=== PATIENT | male | born 1955 | race Caucasian/White ===

== ENCOUNTER 2022-01-23 05:15 | Observation (INO) ==
--- NOTE | 2021-12-27 14:40 | PAT Medication Instructions ---
Medication Instructions Date of Service December 27, 2021 Home Medications acetaminophen 650 mg tablet 1,300 mg PO Q4H PRN atorvastatin 20 mg tablet 20 mg PO HS famotidine 20 mg tablet (Pepcid) 20 mg PO QAM multivitamin 2 tab PO QAM DO NOT take the morning of surgery multivitamin 2 tab PO QAM Take morning of surgery With a small sip of water, OTHERWISE NOTHING TO EAT OR DRINK AFTER MIDNIGHT: acetaminophen 650 mg tablet 1,300 mg PO Q4H PRN(if needed) famotidine 20 mg tablet (Pepcid) 20 mg PO QAM Take evening before surgery acetaminophen 650 mg tablet 1,300 mg PO Q4H PRN(if needed) atorvastatin 20 mg tablet 20 mg PO HS Other Notes If you have any questions please call us at [phone] or [phone] or [phone] or [phone]
--- NOTE | 2022-01-01 13:57 | Anesthesiology Consultation ---
Date of Service January 01, 2022 Assessment & Plan (1) Encounter for pre-operative examination: - COVID screening: Per assessment on 01/01: No known COVID-19 positive contacts or current COVID-19 related symptoms. Travel screen- travels for work to [place], [place], [place], [place]. Patient vaccinated. At surgeon discretion if preop Covid testing being done. - Outpatient joint assessment: Pt currently scheduled for inpatient pathway. If surgeon requests review for outpatient joint pathway, patient is not recommended candidate for outpatient joint program from anesthesia standpoint. - Pacemaker: Per patient, cardiology appt scheduled prior to surgery. Awaiting cardio appt scheduled 01/02 ([facility] cardiology/Geri BURNS) as well as most recent pacer check. Chart Review Chart Review: Patient seen in Pre Admission Testing Teaching & Discussion Pre-Anesthesia Teaching/Discussion Notes: Instructed NPO after midnight before surgery,except medications with 15 cc of water. Medication instructions pr ovided according to the PAT guidelines. History Surgery Operation Date: 01/23/22 07:00 Proposed Procedures p Left Total Knee Arthroplasty - Andrew Deandra Isaacs MD Height/Weight Height: 5 ft 9 in Weight: 101.1 kg Allergies Allergy/AdvReac Type Severity Reaction Status Date / Time bee venom protein (honey bee) Allergy Severe Anaphylaxis Verified 12/27/21 13:36 Medications Home Medications Medication Instructions Recorded Confirmed Last Taken acetaminophen 650 mg tablet 1,300 mg PO Q4H PRN Pain 12/27/21 12/27/21 Unknown atorvastatin 20 mg tablet 20 mg PO HS 12/27/21 12/27/21 Unknown famotidine 20 mg tablet (Pepcid) 20 mg PO QAM 12/27/21 12/27/21 Unknown multivitamin 2 tab PO QAM 12/27/21 12/27/21 Unknown Past Medical History Medical History GERD (gastroesophageal reflux disease) Hx of cardiac arrhythmia Flutter s/[place] [place] Hx of osteoarthritis Hyperlipidemia Pacemaker 02/2021 ([place] for bradycardia), ? last pacer check/type Follows with [facility] (Briana Morrison) Exercise / Class Metabolic Activity II 4-5 Yardwork/Stairs/Walk up hill (one FS (no CP, no SOB)) Past Surgical History Surgical History History of cardiac radiofrequency ablation Flutter s/p [place] [place] Hx of arthroscopy of left knee Hx of colonoscopy Hx of hernia repair Hx of rotator cuff surgery Right Past Anesthesia History No Hx of Anesthesia Complications and No Family Hx of Anesthesia Complications History of PONV No Hx of PONV and No Hx of Motion Sickness Social History Smoking Status: Never smoker Do You Dip or Chew Tobacco: No Hx Alcohol Use: No Hx Substance Use: No substance use type: does not use Review of Systems Patient denies chest pain, shortness of breath, dyspnea on exertion, fever, chills, cough, wheezing, palpitations. Physical Exam Vital Signs VITALS BP 120/73 P 53 TEMP 98.4 SP02 99%RA RESP 16 PHYSICAL Full cervical extension range of motion. Full TMJ range of motion. TMD 4 finger breaths Mallampati Score 2 Dentition: intact, + implant, + several crowns Lungs: clear throughout to auscultation Cardiac: regular rate and rhythm, no murmurs noted Spine: normal Carotid arteries: negative bruit Extremities: no edema Lab Results Anesthesia Preop Results Results Anesthesia Widget: WBC 4.79 K/ul (4.8-10.8) L 01/01/22 Hgb 12.5 g/dl (14.0-18.0) L 01/01/22 Hct 38.6 % (40.1-51.0) L 01/01/22 Plt 154 K/uL (130-400) 01/01/22 Na 141 mmol/L (136-145) 01/01/22 K 4.3 mmol/L (3.5-5.1) 01/01/22 Cl 107 mmol/L (98-107) 01/01/22 CO2 27 mmol/L (21-32) 01/01/22 BUN 18 mg/dl (6-23) 01/01/22 Creat 1.01 mg/dl (0.6-1.4) 01/01/22 Glucose Level 89 mg/dl (70-99(Fasting)) 01/01/22 PT 10.5 Seconds (9.0-12.0) 01/01/22 PTT 25.6 Seconds (21.0-31.0) 01/01/22 INR 1.0 (0.9-1.1) 01/01/22 Urine Color Yellow 01/01/22 Urine Appearance Clear (Clear) 01/01/22 Urine pH 6.0 (4.5-7.5) 01/01/22 Urine Specific Peterson 1.021 (1.000-1.030) 01/01/22 Urine Protein Negative (Negative) 01/01/22 Urine Glucose (UA) Negative (Negative) 01/01/22 Urine Ketones Negative (Negative) 01/01/22 Urine Blood Negative (Negative) 01/01/22 Urine Nitrite Negative (Negative) 01/01/22 Urine Bilirubin Negative (Negative) 01/01/22 Urine Urobilinogen Negative (Negative) 01/01/22 Urine Leukocyte Esterase Negative (Negative) 01/01/22 Blood Type B Positive 01/01/22 Antibody Screen NEGATIVE 01/01/22 Testing Electrocardiogram Date: 11/29/21 Atrial paced rhythm with prolonged AV conduction at 61 bpm. LAD. LVH with QRS widening. No significant change compared to 02/20/2021 per tax manager review. Echocardiogram Date: 02/09/21 LVEF 60%. No LVH. RVD. RAD. No regional motion abnormality. Mild TR. PASP 30 mmHg. Compared to previous study 11/07/2020, there is no significant change per report. Other Testing Chest CTA (02/09/21) No pulmonary emboli identified. No acute process within the chest. Moderate cardiomegaly and coronary artery calcification. Mild ground glass opacities with mosaic attenuation within the lungs which may reflect air trapping. Mild subpleural reticulation within the lungs which is unchanged. There is no honeycombing. There is no bronchiectasis. No pneumothorax or pleural effusion is noted. Punctate bilateral renal calculi. COVID-19 Risk Screen Screening Information COVID-19 Screen Date: 01/01/22 Exposure 21 Days Family/Household +COVID Last 21 Days: No Exposure 10 Days Any COVID Exposure Last 10 Days: No Symptoms Last 10 Days Experienced COVID Sx Last 10 Days: No + COVID 0-90 Days COVID + in Last 0-90 Days: No
[2022-01-23] MEDS ORDERED: ceFAZolin 2000MG 2,000 MG/15 ML SYR IV SCH (06:00)
[2022-01-23] MEDS ORDERED: CeleBREX 200 MG CAP PO SCH (06:00)
[2022-01-23] MEDS ORDERED: TRANEXAMIC ACID 1,000 MG **IV Intra-op IV SCH (06:00)
[2022-01-23] MEDS ORDERED: ROPIVACAINE 0.5% HCL/PF 150 MG, BUPIVACAINE 0.75% MPF 20 ML, EPINEPHrine 0.15 MG, Ketor... INFIL SCH (06:00)
[2022-01-23] MEDS ORDERED: LR 60ML/HR IV SCH (06:00)
[2022-01-23] MEDS ORDERED: LR 500ML BOLUS, THEN 15ML/HR IV SCH (06:00)
[2022-01-23] MEDS ORDERED: Scopolamine 1 MG TDSY TD SCH (06:00)
[2022-01-23] MEDS ORDERED: TRANEXAMIC ACID 1,000 MG **IV Pre-op IV SCH (06:00)
[2022-01-23] MEDS: FAMOTIDINE 20 MG TAB PO SCH ×2 (06:13→06:16)
[2022-01-23] MEDS: ACETAMINOPHEN 500 MG TAB PO SCH ×4 (06:15→21:03)
[2022-01-23] MEDS ORDERED: EPINEPHrine INJ 1 MG/ML AMP ONE (06:19)
[2022-01-23] MEDS ORDERED: ROPIVACAINE 0.5% 5 MG/ML 30 ML VIAL ONE (06:19)
[2022-01-23] MEDS ORDERED: BUPIVACAINE 0.5 % 5 MG/1 ML PF 10ML VIAL ONE (06:19)
--- NOTE | 2022-01-23 06:28 | History & Physical Bridge Note ---
Date of Service January 23, 2022 History & Physical Bridge Note I have examined the patient, reviewed the History & Physical and in the interval since the performance of the History & Physical I have noted the following changes of clinical significance: no changes noted Patient is aware of the risks, is asymptomatic, and tested negative for COVID- 19.
[2022-01-23] MEDS ORDERED: PROPOFOL IV EMULSION 10 MG/ML 20 ML VIAL IV ONE ×6 (06:36→08:52)
[2022-01-23] MEDS ORDERED: fentaNYL citrate 100 MCG/2 ML VIAL ONE (06:36)
[2022-01-23] MEDS ORDERED: MIDAZOLAM HCL 1 MG/ML 2ML VIAL ONE (06:36)
[2022-01-23] MEDS ORDERED: ORTHO JOINT ANESTHETIC ONE (06:40)
[2022-01-23] MEDS ORDERED: PHENYLEPHRINE HCL 10 MG/ML VIAL ONE (08:12)
[2022-01-23] MEDS ORDERED: NALOXONE HCL 0.4 MG/1 ML VIAL/CARP IV PRN ×2 (08:46→11:18)
[2022-01-23] MEDS ORDERED: ONDANSETRON INJ 2 MG/ML 2 ML VIAL IV PRN ×2 (08:46→11:18)
[2022-01-23] MEDS ORDERED: fentaNYL citrate 100 MCG/2 ML VIAL IV PRN (08:46)
[2022-01-23] MEDS ORDERED: HYDROmorphone INJ 1 MG/ML SYRINGE IV PRN ×2 (08:46→11:18)
[2022-01-23] MEDS ORDERED: ePHEDrine sulfate 50 MG/ML AMP IV PRN (08:46)
[2022-01-23] MEDS ORDERED: PROMETHAZINE HCL 12.5 MG in SODIUM CHLORIDE 0.9% 50 ML IV PRN (08:46)
[2022-01-23] MEDS ORDERED: FLUMAZENIL 0.1 MG/1 ML 10 ML VIAL IV PRN (08:46)
[2022-01-23] MEDS ORDERED: ATROPINE SULFATE 0.1 MG/ML 10ML SYR IV PRN (08:46)
[2022-01-23] MEDS ORDERED: KETAMINE 50 MG/5 ML SYRINGE ONE (09:01)
[2022-01-23] MEDS ORDERED: ONDANSETRON INJ 2 MG/ML 2 ML VIAL ONE (09:30)
--- NOTE | 2022-01-23 09:56 | Post Operative Brief Note ---
Immediate Post Op Note v1 Date of Surgery January 23, 2022 Pre & Post Diagnosis Operation Date: 01/23/22 07:00 Pre-Op Diagnosis: Left Knee Osteoarthritis Post-Op Diagnosis: Left Knee Osteoarthritis I identified the patient and participated in the time-out.: Yes Procedure Operation Date: 01/23/22 07:00 Actual Procedures p Left Total Knee Arthroplasty(Left) - Andrew Isaacs MD Surgeon Andrew Isaacs MD Social Media Campaign Manager Julia Issa PA-C (No fellow avail) Estimated Blood Loss 120 Findings Consistent with Post-Op Diagnosis Fluids 700 cc Specimens Left knee contents Anesthesia Type MAC Spinal Regional Complications none
--- NOTE | 2022-01-23 09:57 | Operative Report ---
Post Operative Report Pre & Post Diagnosis Operation Date: 01/23/22 07:00 Pre-Op Diagnosis: Left Knee Osteoarthritis Post-Op Diagnosis: Left Knee Osteoarthritis I identified the patient and participated in the time-out.: Yes Procedure Operation Date: 01/23/22 07:00 Actual Procedures p Total knee replacement, imageless computer assisted navigation - Andrew Isaacs MD Surgeon Andrew Isaacs MD Friction Welding Machine Operator Julia Issa PA-C (No fellow avail) Estimated Blood Loss 120 Findings See Below Examined Under Anesthesia: Pre-op ROM -- There was 15 degrees to 95 degrees of flexion Ligamentous examination -- revealed stable Juvencio, posterior drawer, varus and valgus stress at 15 and 30 degrees. Outerbridge Type IV changes of Medial and patellofemoral compartment, Type III changes lateral compartment. Fluids 700 cc Specimens Left knee contents Anesthesia Type MAC Spinal Regional Complications none Indications This is a 66-year-old male who has clinical and radiographic findings consistent with osteoarthritis of the a left knee. I recommended that a left total knee replacement be performed. The patient understands the risks of surgery, which include but not limited to: bleeding, infection, re-operation, damage to nerves and arteries, continued knee pain, knee stiffness, DVT, and . The patient understands all of these instructions and explanations, all of his questions hav e been satisfactorily addressed and the patient has elected to proceed. Informed consent was signed. Description of Procedure IMPLANTS: 1. Femur: Triathlon #6 Left PS. 2. Tibia: Triathlon #7 [place]. 3. Insert: Triathlon #7 x 11 mm PS X3 poly. 4. Patella: Triathlon A35 x 10 mm X3 poly. 5. Palacos cement. Julia Issa PA-C is assisting with positioning, retracting, and closure due to fellow not available. Procedure: The patient was taken to the Operating Room and placed in the supine position after spinal and adductor canal nerve block was administered. My initials and a multidisciplinary time-out were used to identify the left leg as the correct operative limb. A tourniquet was placed high in the thigh. Prior to the incision, 2 grams of intravenous Ancef were given. The left leg was then prepped and draped in a standard sterile fashion. An Esmarch was used to exsanguinate the leg and the tourniquet was inflated to 250 mmHg. The planned mid-line 20 cm incision was created exposing the extensor mechanism. The medial parapatellar arthrotomy was made and the patella was everted. The patella was addressed first. It was prepared by reaming from 24 mm down to 13 mm. An A35 button was found to fit best. The peg holes were made in the standard fashion. The femur was addressed next and using computer assisted OrthoAlign with 3 degrees of flexion and 0 degrees of valgus, removing 10 mm in the standard fashion for the distal cut. The cut was made and the 4-in-1 cutting block for a size 6 femur was placed. These cuts and the cuts to place the box were made in the standard fashion. Our attention was then drawn to the tibia cut with using imageless computer assisted OrthoAlign, taking 2 mm from the medial low side. The medial side was tight in flexion. Varus/valgus cutting block was used to remove 2 mm from the medial side. There was sufficient extension and flexion gap to fit a 11 mm spacer. A #7 Tibial baseplate fit well. A trial with a 11 mm spacer showed excellent stability in both flexion and extension, with good ligament balance, and thumbs free patellar tracking. Range of motion of 0-125 degrees. The tibial baseplate was prepped for the keel and stem. All components were removed. 90 ml of total knee cocktail were injected into the soft tissues and periosteum. All surfaces were copiously irrigated prior to placement of the components. The femoral component followed by Tibial baseplate were cemented in place and the 11 mm X3 poly was placed. Next, the patellar button was placed using the same cement. Once the cement had cured, the range of motion and stability were unchanged. The tourniquet was deflated. Hemostasis was obtained. The extensor mechanism was closed with 1-0 Vicryl with the knee bent approximately 60 degrees and 0 Stratafix in a standard fashion. The peritenon and deep fascia was closed with 2-0 Vicryl. The subcutaneous layer was closed with 3-0 Vicryl. The skin was closed with Zipline and shield. The limb was cleaned and dried. 4x4 dressing was placed over top followed by ABDs, sterile Webril, and a foot to thigh Nik bandage. The patient was then transferred to the Recovery Room in stable condition. The sponge and needle counts were correct. POST-OP INSTRUCTIONS: The patient will be WBAT. The patient will be admitted to the hospital. Labs will be obtained during the stay. DVT prophylaxis will included Eliquis for for 3 weeks followed by aspirin for 3 weeks, TEDs, and mechanical foot pumps. The dressing will be changed prior to their discharge or postop day #2 and covered with a Silverlon dressing, whichever comes first as long as the incision as dry. I attest to the content of the Intraoperative Record and any orders documented therein. Any exceptions are noted below.
--- NOTE | 2022-01-23 10:13 | Operative Report ---
Post Operative Report Pre & Post Diagnosis Operation Date: 01/23/22 07:00 Pre-Op Diagnosis: Left Knee Osteoarthritis Post-Op Diagnosis: Left Knee Osteoarthritis I identified the patient and participated in the time-out.: Yes Procedure Operation Date: 01/23/22 07:00 Actual Procedures p Left Total Knee Arthroplasty(Left) - Andrew Isaacs MD Surgeon Naila Aparicio Aviation Project Manager Julia Issa PA-C (No fellow avail) Estimated Blood Loss 120 Findings Consistent with Post-Op Diagnosis DJD left knee Specimens bone and soft tissue Anesthesia Type MAC Spinal Regional Description of Procedure Patient was taken to the operating room, placed under spinal anesthesia with IV sedation. A peripheral nerve block was given preoperatively. Time out performed, prepped and draped in routine sterile fashion. I was present during the entire case, please see Dr. Isaacs's operative report for further detail. Patient was awakened and transferred to the recovery room in stable condition. I attest to the content of the Intraoperative Record and any orders documented therein. Any exceptions are noted below.
--- NOTE | 2022-01-23 10:55 | XRay Report ---
TWO VIEWS LEFT KNEE CLINICAL HISTORY: Postoperative examination. FINDINGS: AP and crosstable lateral portable views of the left knee are obtained. A left knee arthrop lasty is in near anatomic alignment. There has been undersurface remodeling of the patella. No acute fracture is seen. There are expected postoperative changes around the knee including soft tissue linda a and subcutaneous gas. IMPRESSION: Expected postoperative changes status post left knee arthroplasty. No acute fracture is s een. ACT 112: Negative or not required by law. Electronically signed by: José Millard M.D. 01/23/2022 10:53 AM
--- NOTE | 2022-01-23 11:04 | Anesthesiology Progress Note ---
Date of Service January 23, 2022 Anesthesia Post Procedure Vital Signs Vital Signs: Temp Pulse Pulse Resp BP BP Pulse Ox 01/23/22 11:00 54 L 14 107/68 100 01/23/22 10:50 52 L 18 119/67 100 01/23/22 10:40 54 L 18 113/63 100 01/23/22 10:30 52 L 13 106/72 100 01/23/22 10:20 56 L 12 114/64 100 01/23/22 10:11 36.2 C L 52 L 14 103/64 99 01/23/22 05:52 36.8 C 71 20 143/92 H 97 O2 Del Method O2 Flow Rate 01/23/22 11:00 Room Air 01/23/22 10:50 Room Air 01/23/22 10:40 Room Air 01/23/22 10:30 Oxymask 3 01/23/22 10:20 Oxymask 5 01/23/22 10:11 Oxymask 5 01/23/22 05:52 Room Air Pain Intensity Left Knee: Pain Intensity: 5 Transfer of Care Handoff Completed per policy Notes Mental Status: alert / awake / arousable Patient Amnestic to Procedure: Yes Nausea / Vomiting: adequately controlled Pain: adequately controlled Airway Patency, RR, SpO2: stable & adequate BP & HR: stable & adequate Hydration State: stable & adequate Neuraxial Anesthesia: was administered and sensory block is resolving Anesthetic Complications: no major complications apparent
[2022-01-23] MEDS ORDERED: HYDROmorphone INJ 0.5 MG/0.5 ML SYR IV PRN (11:18)
[2022-01-23] MEDS ORDERED: TAMSULOSIN HCL 0.4 MG CAP PO PRN (11:18)
[2022-01-23] MEDS ORDERED: diphenhydrAMINE 50 MG/ML VIAL IV PRN (11:18)
[2022-01-23] MEDS ORDERED: METOCLOPRAMIDE HCL INJ 5 MG/ML 2 ML VIAL IV PRN (11:18)
[2022-01-23] MEDS ORDERED: diphenhydrAMINE Capsule 25 MG CAP PO PRN (11:18)
[2022-01-23] MEDS ORDERED: bisacodyL 10 MG SUPP PR PRN (11:18)
[2022-01-23] MEDS ORDERED: MAGNESIUM HYDROXIDE SUSP 30 ML UDC PO PRN (11:18)
[2022-01-23] MEDS: SODIUM CHLORIDE 0.9% 1000ML 1,000 ML IV SCH ×2 (12:05→23:43)
--- NOTE | 2022-01-23 13:25 | History & Physical Report ---
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 at bedtime GERD Continue Pepcid 20 mg p.o. twice daily as needed Patient has no other chronic (2) Hx of cardiac arrhythmia: (3) GERD (gastroesophageal reflux disease): (4) Hyperlipidemia: Admission and Anticipated Discharge Date Admission Date: January 23, 2022 History of Present Illness Primary Care Provider: Melodie Lawrence Angelito Quintero is a 66-year-old male with a past medical history of hyperlipidemia and GERD who presented for scheduled left total knee arthroplasty due to left knee osteoarthritis. We are consulted for postoperative management. Patient has hyperlipidemia on atorvastatin and GERD on Pepcid, history of atrial flutter s/p ablation 11/2020 and with symptomatic bigeminy/junctional rhythm s/p pacemaker placement 02/2021. Preoperatively was doing well, able to go up a flight of stairs without any cardiac symptoms, no evidence of angina or volume overload. Low cardiac risk by RCRI. Family history: DM Father, [place] mother Allergies Allergy/AdvReac Type Severity Reaction Status Date / Time bee venom protein (honey bee) Allergy Severe Anaphylaxis Verified 01/23/22 05:43 Home Medications Medication Instructions Recorded Confirmed Type acetaminophen 650 mg tablet 1,300 mg PO Q4H PRN Pain 12/27/21 01/23/22 History atorvastatin 20 mg tablet 20 mg PO HS 12/27/21 01/23/22 History famotidine 20 mg tablet (Pepcid) 20 mg PO QAM 12/27/21 01/23/22 History multivitamin 2 tab PO QAM 12/27/21 01/23/22 History Past Med/Surg History Medical History (Updated 01/23/22 @ 13:[address] MD) GERD (gastroesophageal reflux disease) Hx of cardiac arrhythmia Flutter s/p ablation [place] [place]) Hx of osteoarthritis Hyperlipidemia Pacemaker 02/2021 ([place] for bradycardia), ? last pacer check/type Follows with [facility] (Briana Morrison) Surgical History History of cardiac radiofrequency ablation Flutter s/p ablation ([facility] [place]) Hx of arthroscopy of left knee Hx of colonoscopy Hx of hernia repair Hx of rotator cuff surgery Right Social History Smoking Status: Never smoker Second Hand Exposure: No; Do You Dip or Chew Tobacco: No; Tobacco Cessation Education Requested by Patient: No Hx Alcohol Use: No Hx Substance Use: No Preferred Language: Argentine Communication Ability: Effective Claim Representative Required: No Beliefs That Will Affect Care: None marital status: Current Living Situation: Spouse How many Children do You have: 1 Other Information That Helps Us Care for You: No Feels Safe at Home: Yes Safety Concerns: Feels Safe At This Time Assistive Devices: None Results & Data Results & Data ([facility]) Vital Signs (Past 12 Hours) Vital Signs Temp Pulse Pulse Resp BP BP Pulse Ox 01/23/22 12:32 36.5 C 52 L 16 135/80 98 01/23/22 11:49 36.4 C L 52 L 18 147/77 H 99 01/23/22 11:19 36.5 C 51 L 18 130/76 99 01/23/22 11:00 54 L 14 107/68 100 01/23/22 10:50 52 L 18 119/67 100 01/23/22 10:40 54 L 18 113/63 100 01/23/22 10:30 52 L 13 106/72 100 01/23/22 10:20 56 L 12 114/64 100 01/23/22 10:11 36.2 C L 52 L 14 103/64 99 01/23/22 05:52 36.8 C 71 20 143/92 H 97 O2 Del Method O2 Flow Rate 01/23/22 12:32 Room Air 01/23/22 11:49 Room Air 01/23/22 11:19 Room Air 01/23/22 11:00 Room Air 01/23/22 10:50 Room Air 01/23/22 10:40 Room Air 01/23/22 10:30 Oxymask 3 01/23/22 10:20 Oxymask 5 01/23/22 10:11 Oxymask 5 01/23/22 05:52 Room Air Code Status & VTE Plan VTE Prophylaxis Plan VTE Prophylaxis will be ordered: Yes PG Care Time/CCT Total # of Minutes Spent Total Time Spent with Patient: Total time spent is greater than 50% in coordination of care (as documented) at patient's floor/unit and/or counseling patient: Coding Diagnoses Hx of osteoarthritis Z87.39 Hx of cardiac arrhythmia Z86.79 GERD (gastroesophageal reflux disease) K21.9 Hyperlipidemia E78.5
--- NOTE | 2022-01-23 13:57 | Hospitalist Consultation ---
Date of Consultation January 23, 2022 Assessment & Plan (1) Hx of osteoarthritis: Angelito Quintero is a 66-year-old male with a past medical history of hyperlipidemia, a flutter s/p ablation, junctional bradycardia s/p pacemaker placement, and GERD who presented for scheduled left total knee arthroplasty due to left knee osteoarthritis. We are consulted for postoperative management. Left OA s/p left total knee arthroplasty 01/23/2022 Ambulation, pain control per primary team Patient doing extremely well postoperatively, is able to wiggle toes and has sensation intact in feet and toes bilaterally without deficit or asymmetry. PT pulse intact bilaterally. Patient with family history of hypercoagulable state/DVTs, patient personally with history of superficial thrombosis. Given elevated DVT risk recommend DOAC for prophylaxis Atrial flutter s/p ablation, history of junctional rhythm s/p pacemaker placement 02/2021 Not on anticoagulation post ablation, no recurrent A. fib follows with [facility] [place] [place] cardiology Regular at bedside No acute intervention at this time If any recurrent atrial flutter/A. fib, would recommend reinitiation of and lifelong DOAC therapy at that point. Hyperlipidemia Continue atorvastatin 20 mg p.o. at bedtime GERD Continue Pepcid 20 mg p.o. twice daily as needed DVT prophylaxis: Eliquis Diet: Regular Disposition: Medical surgical, final dispo per primary team CODE STATUS: Full code (2) Hx of cardiac arrhythmia: (3) GERD (gastroesophageal reflux disease): (4) Hyperlipidemia: History of Present Illness Attending Physician: Andrew Isaacs MD History of Present Illness Angelito Quintero is a 66-year-old male with a past medical history of hyperlipidemia, a flutter s/p ablation, junctional bradycardia s/p pacemaker placement, and GERD who presented for scheduled left total knee arthroplasty due to left knee osteoarthritis. We are consulted for postoperative management. Patient has hyperlipidemia on atorvastatin and GERD on Pepcid, history of atrial flutter s/p ablation 11/2020 and with symptomatic bigeminy/junctional rhythm s/p pacemaker placement 02/2021. Preoperatively was doing well, able to go up a flight of stairs without any cardiac symptoms, no evidence of angina or volume overload. Low cardiac risk by RCRI. Family history: [place] Father, [place] mother Angelito is seen at the bedside with his . He feels well after surgery, has no pain, and has sensation in his legs/feet. No numbness/tingling. No fever/chills/sweats/chest pain/chest pressure/shortness of breath. Is using incentive spirometer, encouraged to use every hour. Does endorse a history of lower extremity varicosities, and a strong family history of DVTs and hypercoagulable state. He has had superficial thrombosis in the past. Has a history of atrial flutter with complex ablation, no recurrence of atrial arrhythmia since this and has deferred anticoagulation. Has regular follow-up with cardiology. Baseline activity limited by severe left OA, but otherwise without exertional dyspnea/chest pain or anginal symptoms. Takes no antihypertensives, no acute concerns at bedside. Medical History: Reviewed Medications: Reviewed Surgical History: Reviewed Allergies: Reviewed Social History: Reviewed Code Status: Full code Allergies Allergy/AdvReac Type Severity Reaction Status Date / Time bee venom protein (honey bee) Allergy Severe Anaphylaxis Verified 01/23/22 05:43 Home Medications Medication Instructions Recorded Confirmed Type acetaminophen 650 mg tablet 1,300 mg PO Q4H PRN Pain 12/27/21 01/23/22 History atorvastatin 20 mg tablet 20 mg PO HS 12/27/21 01/23/22 History famotidine 20 mg tablet (Pepcid) 20 mg PO QAM 12/27/21 01/23/22 History multivitamin 2 tab PO QAM 12/27/21 01/23/22 History Patient History Medical History GERD (gastroesophageal reflux disease) Hx of cardiac arrhythmia Flutter s/p ablation ([facility] [place] [place]- 10/2020) Hx of osteoarthritis Hyperlipidemia Pacemaker 02/2021 (Denise for bradycardia), ? last pacer check/type Follows with [facility] (Briana Morrison) Surgical History History of cardiac radiofrequency ablation Flutter s/p ablation ([facility] [place] 10/2020) Hx of arthroscopy of left knee Hx of colonoscopy Hx of hernia repair Hx of rotator cuff surgery Right Social History Smoking Status: Never smoker Second Hand Exposure: No; Do You Dip or Chew Tobacco: No; Tobacco Cessation Education Requested by Patient: No Hx Alcohol Use: No Hx Substance Use: No Preferred Language: Mongolian Communication Ability: Effective Business Operations Analyst Required: No Beliefs That Will Affect Care: None marital status: Current Living Situation: Spouse How many Children do You have: 1 Other Information That Helps Us Care for You: No Feels Safe at Home: Yes Safety Concerns: Feels Safe At This Time Assistive Devices: None Review of Systems Review of Systems: All systems reviewed & are unremarkable except as noted in HPI & below Physical Exam Physical Exam: General: A&Ox3. NAD. Cooperative. HEENT: Atraumatic, normocephalic. Vision and hearing grossly intact Pulm: CTAB A&P. -wheezes, -rales, -rhonchi. Symmetrical chest rise. No increase in work of breathing. No respiratory distress. Cardiac: RRR, -mrg. Radial pulses intact and symmetrical. Abdominal: Nontender, nondistended, soft. BS present. Extremities: Left lower extremity in postoperative wrap with ice pack. Able to wiggle toes bilaterally, sensation of soft touch intact in the feet bilaterally without asymmetry. PT pulse intact bilaterally. Lopez stocking and SCD in place on right leg without edema Results & Data Results & Data ([facility]) Vital Signs (Past 12 Hours) Vital Signs Temp Pulse Pulse Resp BP BP Pulse Ox 01/23/22 13:24 36.5 C 52 L 16 128/72 100 01/23/22 12:32 36.5 C 52 L 16 135/80 98 01/23/22 11:49 36.4 C L 52 L 18 147/77 H 99 01/23/22 11:19 36.5 C 51 L 18 130/76 99 01/23/22 11:00 54 L 14 107/68 100 01/23/22 10:50 52 L 18 119/67 100 01/23/22 10:40 54 L 18 113/63 100 01/23/22 10:30 52 L 13 106/72 100 01/23/22 10:20 56 L 12 114/64 100 01/23/22 10:11 36.2 C L 52 L 14 103/64 99 01/23/22 05:52 36.8 C 71 20 143/92 H 97 O2 Del Method O2 Flow Rate 01/23/22 13:24 Room Air 01/23/22 12:32 Room Air 01/23/22 11:49 Room Air 01/23/22 11:19 Room Air 01/23/22 11:00 Room Air 01/23/22 10:50 Room Air 01/23/22 10:40 Room Air 01/23/22 10:30 Oxymask 3 01/23/22 10:20 Oxymask 5 01/23/22 10:11 Oxymask 5 01/23/22 05:52 Room Air PG Care Time/CCT Total # of Minutes Spent Total Time Spent with Patient: Total time spent is greater than 50% in coordination of care (as documented) at patient's floor/unit and/or counseling patient: Coding Level of Care Code 19803 Inpt Consult Level 4 Diagnoses Hx of osteoarthritis Z87.39 Hx of cardiac arrhythmia Z86.79 GERD (gastroesophageal reflux disease) K21.9 Hyperlipidemia E78.5
[2022-01-23] MEDS: oxyCODONE HCL IR 5 MG TAB (IMMEDIATE RELEASE) PO PRN (15:43)
[2022-01-23] MEDS: Scopolamine CHECK PATCH PLACEMENT SCH ×2 (15:46→23:52)
[2022-01-23] MEDS: FERROUS GLUCONATE 324 MG TAB PO SCH (16:50)
[2022-01-23] MEDS: ASCORBIC ACID 500 MG TAB PO SCH (16:50)
[2022-01-23] MEDS: ceFAZolin 2000MG 2,000 MG/15 ML SYR IV SCH ×2 (16:50→23:44)
--- NOTE | 2022-01-23 20:47 | Orthopedic Progress Note ---
Date of Service January 23, 2022 Assessment & Plan (1) Hx of osteoarthritis: Plan: POD #0 s/p L TKA, doing as well as expected. Resume diet. WBAT with walker. OOB to chair. Continue pain control. Check labs tomorrow. Change dressing to Silverlon POD #2 or prior to discharge whichever comes first. DVT prophylaxis: TEDs 3 weeks, foot pumps while in hospital, Eliquis 2.5 mg BID for 3 weeks followed by ASA 81 mg BID for 3 weeks. PT/OT. D/C planning. Present on Admission?: Yes Admission and Anticipated Discharge Date Admission Date: January 23, 2022 Subjective Doing well, very pleased. Did 6 laps around the floor. Physical Exam Physical Exam: LLE: BCR < 2 sec. Sensation to light touch is slightly diminished distally. Wiggling ankle and toes. Calf soft and non-tender. Dressing is clean, dry, intact. Results & Data ([facility]) Vital Signs (Past 12 Hours) Vital Signs Temp Pulse Pulse Resp BP Pulse Ox O2 Del Method 01/23/22 19:49 36.7 C 51 L 18 129/77 99 Room Air 01/23/22 15:02 36.6 C 57 L 16 123/69 100 Room Air 01/23/22 13:24 36.5 C 52 L 16 128/72 100 Room Air 01/23/22 12:32 36.5 C 52 L 16 135/80 98 Room Air 01/23/22 11:49 36.4 C L 52 L 18 147/77 H 99 Room Air 01/23/22 11:19 36.5 C 51 L 18 130/76 99 Room Air 01/23/22 11:00 54 L 14 107/68 100 Room Air 01/23/22 10:50 52 L 18 119/67 100 Room Air 01/23/22 10:40 54 L 18 113/63 100 Room Air 01/23/22 10:30 52 L 13 106/72 100 Oxymask 01/23/22 10:20 56 L 12 114/64 100 Oxymask 01/23/22 10:11 36.2 C L 52 L 14 103/64 99 Oxymask O2 Flow Rate 01/23/22 19:49 01/23/22 15:02 01/23/22 13:24 01/23/22 12:32 01/23/22 11:49 11/15/22 11:19 01/23/22 11:00 01/23/22 10:50 01/23/22 10:40 01/23/22 10:30 3 01/23/22 10:20 5 01/23/22 10:11 5 Laboratory Results Laboratory Results SARS-CoV-2, RNA, NAAT NEGATIVE (NEGATIVE) 01/23/22 05:28 Impressions Knee X-Ray 01/23/22 10:18 TWO VIEWS LEFT KNEE CLINICAL HISTORY: Postoperative examination. FINDINGS: AP and crosstable lateral portable views of the left knee are obtained. A left knee arthroplasty is in near anatomic alignment. There has been undersurface remodeling of the patella. No acute fracture is seen. There are expected postoperative changes around the knee including soft tissue edema and subcutaneous gas. IMPRESSION: Expected postoperative changes status post left knee arthroplasty. No acute fracture is seen. ACT 112: Negative or not required by law. Electronically signed by: José Millard M.D. 01/23/2022 10:53 AM
[2022-01-23] MEDS ORDERED: ATORVASTATIN 20 MG TAB PO SCH (21:00)
[2022-01-23] MEDS ORDERED: SENNA 8.6 MG TAB PO SCH (21:00)
[2022-01-23] MEDS: DOCUSATE SODIUM 100 MG CAP PO SCH (21:03)
[2022-01-24] MEDS: oxyCODONE HCL IR 5 MG TAB (IMMEDIATE RELEASE) PO PRN ×2 (00:47→08:41)
[2022-01-24] MEDS: ACETAMINOPHEN 500 MG TAB PO SCH (05:38)
[2022-01-24] MEDS ORDERED: dexAMETHasone 4 MG TAB PO SCH (08:00)
[2022-01-24 08:11] LABS: Hematocrit (blood only) 32.9 % (40.1-51.0); Hemoglobin 10.7 g/dl (14.0-18.0); Mean Corpuscular Hemoglobin 28.5 pg (25.0-34.0); Mean Corpuscular Hgb Conc 32.5 g/dL (32.0-36.0); Mean Corpuscular Volume 87.5 fL (80.0-100.0); Mean Platelet Volume 8.6 fL (9.4-12.4); Platelet Count 131 K/uL (130-400); RDW Coefficient of Variation 17.9 % (11.5-14.5); RDW Standard Deviation 57.6 fL (36.4-46.3); Red Blood Count 3.76 M/uL (4.63-6.08); White Blood Count 8.46 K/ul (4.8-10.8)
[2022-01-24 08:31] LABS: BUN Creatinine Ratio 19.4 (10-20); Calcium 8.4 mg/dl (8.5-10.1); Creatinine Clr Calc Pharmacy 85.2 ml/min; Est GFR (African American) 92.1 ml/min; Est GFR (Non-African American) 79.5 ml/min; Potassium 4.1 mmol/L (3.5-5.1)
[2022-01-24] MEDS: Scopolamine CHECK PATCH PLACEMENT SCH (08:34)
[2022-01-24] MEDS: FERROUS GLUCONATE 324 MG TAB PO SCH (08:35)
[2022-01-24] MEDS: ASCORBIC ACID 500 MG TAB PO SCH (08:35)
[2022-01-24] MEDS: DOCUSATE SODIUM 100 MG CAP PO SCH (08:35)
[2022-01-24] MEDS ORDERED: MULTIVITAMIN TAB PO SCH (09:00)
[2022-01-24] MEDS ORDERED: APIXABAN 2.5 MG TAB PO SCH (09:00)
[2022-01-24] MEDS ORDERED: FAMOTIDINE 20 MG TAB PO SCH (09:00)
--- NOTE | 2022-01-24 09:03 | Orthopedic Progress Note ---
Date of Service January 24, 2022 Assessment & Plan (1) Hx of osteoarthritis: Plan: POD1 s/p total knee arthroplasty WBAT with walker PT/OT Diet - regular Frequently ice and elevate with blankets stacked under ankle DVT prophylaxis: Eliquis 2.5mg BID x 3 weeks, ASA 81mg BID x 3 weeks, TEDS x 3 weeks, foot pumps while in hospital Pain control: Tylenol 1000mg q 8hrs, oxycodone 5-10mg q4-6 hrs for moderate pain Vitamin C and Iron supplementation BID x 2 weeks Dressing: changed dressing to Mepilex dressing that patient can leave in-tact until f/u Discharge home with home health x 2 weeks Follow up as scheduled with [facility] in 2 weeks Admission and Anticipated Discharge Date Admission Date: January 23, 2022 Subjective Pt was seen and examined bedside. POD #1 s/p RTKA. Pt was admitted last night for observation. No major events over night. Vitals are stable. Labs unremarkable. X-rays show normal post operative changed. Pt reports they are doing well and pain is controlled with tylenol and oxycodone. He walked 4 laps this morning with his walker with no issues. They are tolerating PO intake and voiding adequate amounts. BM this morning. Will be working with PT/OT. Pt denies F/C, N/V/D, SOB, CP. Denies N/T. Pt deemed medically stable and ready for discharge after PT session. Physical Exam Physical Exam: General: Pt laying in hospital bed AA&O, in NAD, calm and cooperative during exam Lower Extremity: Dressing in tact and not saturated. Dressing removed to reveal Incisions clean, dry and with minimal drainage and no surrounding erythema, warmth or purulent drainage. Mepilex dressing applied. Pt has full ROM of ankle and all 5 digits. Pt has 5/5 strength with resisted DF/PF. SLR in tact. Calf supple and non tender. NVI with sensation to light touch distally and good distal pulses present. Lower extremity noted to have good color and temperature with no signs of vascular or lymphatic insufficiency. Results & Data ([facility]) Vital Signs (Past 12 Hours) Vital Signs Temp Pulse Resp BP Pulse Ox O2 Del Method 01/24/22 07:18 36.8 C 70 16 125/71 98 Room Air 01/24/22 04:00 37.0 C 51 L 18 124/70 98 Room Air 01/24/22 00:00 36.7 C 52 L 16 126/72 97 Room Air Laboratory Results 01/24/22 01/24/22 Range/Units 07:34 07:34 WBC 8.46 (4.8-10.8) K/ul RBC 3.76 L (4.63-6.08) M/uL Hgb 10.7 L (14.0-18.0) g/dl Hct 32.9 L (40.1-51.0) % MCV 87.5 (80.0-100.0) fL MCH 28.5 (25.0-34.0) pg MCHC 32.5 (32.0-36.0) g/dL RDW Std Deviation 57.6 H (36.4-46.3) fL RDW Coeff of Denae 17.9 H (11.5-14.5) % Plt Count 131 (130-400) K/uL MPV 8.6 L (9.4-12.4) fL Sodium 137 (136-145) mmol/L Potassium 4.1 (3.5-5.1) mmol/L Chloride 107 (98-107) mmol/L Carbon Dioxide 24 (21-32) mmol/L Anion Gap 6 (3-11) BUN 19 (6-23) mg/dl Creatinine 0.98 (0.6-1.4) mg/dl Est Cr Clr Drug Dosing 85.2 ml/min Est GFR ( Amer) 92.1 ml/min Est GFR (Non-Af Amer) 79.5 ml/min BUN/Creatinine Ratio 19.4 (10-20) Glucose 100 H (70-99(Fasting)) mg/dl Calcium 8.4 L (8.5-10.1) mg/dl
--- NOTE | 2022-01-24 09:05 | Hospitalist Progress Note ---
Date of Service January 24, 2022 Assessment & Plan (1) Hx of osteoarthritis: Plan: Angelito Quintero is a 66-year-old male with a past medical history of hyperlipidemia, a flutter s/p ablation, junctional bradycardia s/p pacemaker placement, and GERD who presented for elective TKA due to OA. Left Knee Osteoarthritis POD#1 s/p left total knee arthroplasty with Dr Isaacs on 01/23. EBL 120cc H/h 12.5/38.6 --> 10.7/32.9 post op -- acute blood loss anemia along with dilutional effect from IVF Pain control/antiemetics/bowel regimen per primary service --> states pain controlled, moved his bowels DVT prophylaxis -- eliquis BID. Patient also has leftover rx from prior ablation procedure (questioned given rx at d/c only for 7 days....patient has 15-16 days left at home as well). Patient w/ strong family history of hypercoag state/DVTs and patient w/ personal hx superficial thrombosis. --> is [employer], recently retired. Instructed patient to call if any issues with rx and will address. PT/OT -- planning for home this afternoon Atrial flutter s/p ablation, history of junctional rhythm s/p pacemaker placement 02/2021 Not on anticoagulation post ablation but had been on prior (see above), no recurrent A. fib [place] [facility] [place] Continues in regular rhythm Planning eliquis BID for DVT prophylaxis per orthopedics F/u [facility] routine at d/c Hyperlipidemia Continue atorvastatin 20 mg p.o. at bedtime GERD Continue Pepcid 20 mg p.o. twice daily as needed DVT prophylaxis: Eliquis (2) Hx of cardiac arrhythmia: (3) GERD (gastroesophageal reflux disease): (4) Hyperlipidemia: Plan Thank you for allowing hospitalist service to participate in the care of Mr Quintero. Hospitalist service will sign off at this time. Please call with any questions/concerns. Admission and Anticipated Discharge Date Admission Date: January 23, 2022 Supervising Physician Co-Signing Physician Notes BLAKE Supervision Note: I personally saw and examined the patient. I verified all barnhart points and agree with BLAKE De La Cruz with the following exceptions and/or additions: Pt doing very well, ambulating halls, minimal pain. No other issues. O- Vitals reviewed Gen: [AAOx3, NAD] HEENT: [anicteric sclerae, EOMI] CV: [RRR no mgr nl S1S2] Pulm: [CTAB no wcr] Abd: [+BS soft NT ND no masses or hernias] Ext: [no edema,LLE in CARLTON wrap not removed] Skin: [no rashes, warm/dry] Neuro: [full strength throughout] A/P-66 yo male with history as above here s/p left TKA. Doing very well, VSS, labs acceptable stable medically for dc to home Subjective Patient evaluated this morning. Feeling well. Pain controlled, primarily to proximal aspect of thigh. No chest pain/shortness of breath, palpitations. Worked with therapy this morning and cleared for discharge. Utilizing eliquis at discharge for DVT prophylaxis, meds reviewed for 7 days. Patient still has 15 days left at home from prior ablation procedure. Moving bowels/eating without issue. Planning f/u ortho in 2 weeks and starting therapy. 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 Questions/concerns addressed at this time. Review of Systems Review of Systems: All systems reviewed & are unremarkable except as noted in HPI & below Physical Exam Physical Exam: General: WD/WN male sitting up in bed, NAD HEENT: head normocephaliac, atraumatic, mmm, trachea mideline without deviation Resp: CTAB, no w/c, on room air Chest: R sided pacemaker CV: RRR, no m/r/g, no pitting edema, pulses palpable GI: +BS, soft/nontender : no ledesma MSK/Neuro: moves all extremities, no focal deficit, dressing to L knee c/d/i, wrapped in carlton wrap, calves supple/nontender, pulses palpable, cap refill wnl Skin: warm, dry Psych: AOx3, pleasant and cooperative Results & Data Results & Data ([facility]) Vital Signs (Past 12 Hours) Vital Signs Temp Pulse Resp BP Pulse Ox O2 Del Method 01/24/22 07:18 36.8 C 70 16 125/71 98 Room Air 01/24/22 04:00 37.0 C 51 L 18 124/70 98 Room Air 01/24/22 00:00 36.7 C 52 L 16 126/72 97 Room Air Laboratory Results 01/24/22 01/24/22 Range/Units 07:34 07:34 WBC 8.46 (4.8-10.8) K/ul RBC 3.76 L (4.63-6.08) M/uL Hgb 10.7 L (14.0-18.0) g/dl Hct 32.9 L (40.1-51.0) % MCV 87.5 (80.0-100.0) fL MCH 28.5 (25.0-34.0) pg MCHC 32.5 (32.0-36.0) g/dL RDW Std Deviation 57.6 H (36.4-46.3) fL RDW Coeff of Denae 17.9 H (11.5-14.5) % Plt Count 131 (130-400) K/uL MPV 8.6 L (9.4-12.4) fL Sodium 137 (136-145) mmol/L Potassium 4.1 (3.5-5.1) mmol/L Chloride 107 (98-107) mmol/L Carbon Dioxide 24 (21-32) mmol/L Anion Gap 6 (3-11) BUN 19 (6-23) mg/dl Creatinine 0.98 (0.6-1.4) mg/dl Est Cr Clr Drug Dosing 85.2 ml/min Est GFR ( Amer) 92.1 ml/min Est GFR (Non-Af Amer) 79.5 ml/min BUN/Creatinine Ratio 19.4 (10-20) Glucose 100 H (70-99(Fasting)) mg/dl Calcium 8.4 L (8.5-10.1) mg/dl PG Care Time/CCT Total # of Minutes Spent Total Time Spent with Patient: Total time spent is greater than 50% in coordination of care (as documented) at patient's floor/unit and/or counseling patient: Coding Level of Care Code 60252 Subseq Obs Care Lvl 2 Diagnoses Hx of osteoarthritis Z87.39 Hx of cardiac arrhythmia Z86.79 GERD (gastroesophageal reflux disease) K21.9 Hyperlipidemia E78.5
--- NOTE | 2022-01-24 11:31 | Discharge Summary ---
Date of Service January 24, 2022 Admission HPI Per Admitting Provider Pt was seen and examined bedside. POD #1 s/p LTKA. Pt was admitted last night for observation. No major events over night. Vitals are stable. Labs unremarkable. X-rays show normal post operative changed. Pt reports they are doing well and pain is controlled. They are tolerating PO intake and voiding adequate amounts. Working well with PT/OT. Pt denies F/C, N/V/D, SOB, CP. Pt deemed medically stable and ready for discharge. Principal Diagnosis s/p left total knee arthroplasty Discharge Exam General: Pt laying in hospital bed AA&O, in NAD, calm and cooperative during exam Lower Extremity: Dressing in tact and not saturated. Dressing removed to reveal Incisions clean, dry and with minimal drainage and no surrounding erythema, warmth or purulent drainage. Mepilex dressing applied. Pt has full ROM of ankle and all 5 digits. Pt has 5/5 strength with resisted DF/PF. SLR in tact. Calf supple and non tender. NVI with sensation to light touch distally and good distal pulses present. Lower extremity noted to have good color and temperature with no signs of vascular or lymphatic insufficiency. Discharge Data Allergies Allergy/AdvReac Type Severity Reaction Status Date / Time bee venom protein (honey bee) Allergy Severe Anaphylaxis Verified 01/23/22 05:43 Consultations 01/18/22 14:18 Consult Hospitalist Routine Procedures Performed Operation Date: 01/23/22 07:00 Actual Procedures p Left Total Knee Arthroplasty(Left) - Andrew Isaacs MD Ordered Studies 01/23/22 05:00 US - OR guided needle placemen Routine Hospital Course (1) Hx of osteoarthritis: POD1 s/p total knee arthroplasty WBAT with walker PT/OT Diet - regular Frequently ice and elevate with blankets stacked under ankle DVT prophylaxis: Eliquis 2.5mg BID x 3 weeks, ASA 81mg BID x 3 weeks, TEDS x 3 weeks, foot pumps while in hospital Pain control: Tylenol 1000mg q 8hrs, oxycodone 5-10mg q4-6 hrs for moderate pain Vitamin C and Iron supplementation BID x 2 weeks Dressing: changed dressing to Mepilex dressing that patient can leave in-tact until f/u Discharge home today with home health x 2 weeks Follow up as scheduled with [facility] in 2 weeks Total Time Total Time Spent Total Time Spent (In Minutes): 45 minutes Discharge Plan Discharge Items Patient Disposition: Home - Home Health Services Reason For Visit: Left Knee Osteoarthritis Discharge Diagnosis: same as above, s/p left total knee arthroplasty Activity: Per Instructions section Non-emergency contact: Primary Care Provider and Surgeon Call non-emergency contact if: your temperature is above 101.5, your wound has increased redness, your wound has increased drainage and your wound pain has increased Follow-up/Referrals: Melodie Lawrence [Primary Care Provider] - Sailaja Luis PA-C [Physician Sports Equipment Racker] - Diet: Regular Addtl Attending Provider Instructions: ORTHOPEDIC DISCHARGE INSTRUCTIONS -Weight bearing as tolerated with walker to assist in ambulation -Home health/PT x 2 weeks. You will receive home exercises to do on your own for the first two weeks from home PT. Please do these exercises 3 times a day. -Frequently ice, at least 20 minutes 5 times a day. -Elevate operative leg above your heart with pillows/blankets underneath your ankle, never under your knee. This helps to keep the knee in extension and prevent a flexion contracture. -You may shower on Post op Day 2. Leave Mepilex dressing in tact until follow up appt in 2 weeks. Your dressing is water-resistant, meaning you can shower with it on as long as it is in-tact. Letting some running water run over top of it from the shower is okay. You cannot submerge your incision in water. No baths, hot tubs or swimming pools. Keep dressing clean and dry. If your dressing starts to peel off or gets moisture under it after 7 days, home health nurse may reinforce as needed. -DVT prophylaxis: Eliquis 2.5mg twice a day for 3 weeks, then Aspirin 81mg twice a day for 3 weeks, MARIE compression stockings for 3 weeks -While taking Aspirin, if you start to get upset stomach, we recommend taking over the counter Pepcid, 20mg twice a day as long as you are taking the Aspirin -Pain control: oxycodone 5mg every 4-6 hours as needed, Tylenol 500-1000mg every 8 hours -To promote healing, please take 500mg Vitamin C twice a day with meals x 2 weeks and Iron 325 mg twice a day with meals x 2 weeks -While on narcotic pain medication and iron supplement, we recommend you take a stool softener to prevent constipation -Follow up as scheduled in 2 weeks with [facility] for post op evaluation and Zip-line removal. Please call our office sooner @ [phone] if you have any questions or concerns Pending Studies at Discharge: No Stand-Alone Forms: My [facility], Smoking Cessation Medications and DC Order Prescriptions: New Eliquis 2.5 mg Tablet 2.5 mg PO BID Qty: 14 0RF oxycodone 5 mg Tablet 5 mg PO Q4H PRN (Reason: post op pain control) Qty: 18 0RF Continued multivitamin Tablet 2 tab PO QAM atorvastatin 20 mg Tablet 20 mg PO HS acetaminophen 650 mg Tablet 1,300 mg PO Q4H PRN (Reason: Pain) famotidine [Pepcid] 20 mg Tablet 20 mg PO QAM Discharge Orders: Discharge Order (Routine); Ordered 01/24/22 Ordered By: Sailaja Luis Admission Data Admit Date/Time: 01/23/22 10:18 Attending Provider: Andrew Isaacs Admit Provider: Andrew Isaacs Primary Care Provider: Melodie Lawrence Other Providers: Yordy Herron ; [facility] ; Shirley Santiago Other Interventions: Discharge Summary Assessment (RN) Last Done: 01/24/22 10:23
== END 2022-01-24 11:17 | disposition home health service (06) ==
LOC: 3W 05:15 → ASU 05:15

== ENCOUNTER 2023-07-31 05:08 | Observation (INO) ==
--- NOTE | 2023-07-09 13:54 | PAT Medication Instructions ---
Medication Instructions Date of Service July 09, 2023 Home Medications acetaminophen 650 mg tablet 1,300 mg PO Q4H PRN Pain atorvastatin 20 mg tablet 20 mg PO HS famotidine 20 mg tablet (Pepcid) 10 mg PO QAM multivitamin 2 tab PO QAM apixaban 5 mg tablet (Eliquis) 5 mg PO BID lactobacillus combination no.4 3 billion cell capsule (Probiotic) 3,000 mmu cells PO DAILY metoprolol tartrate 25 mg tablet 12.5 mg PO HS omega 2-lwz-tso-fish oil 300 mg-1,000 mg capsule (Fish Oil) 1 cap PO DAILY ASK your prescriber and surgeon apixaban 5 mg tablet (Eliquis) 5 mg PO BID (From anesthesia perspective, Apixaban/Eliquis needs to be stopped 72 hours before surgery. Please check if okay with doctor that prescribes this to you) STOP taking 2 weeks before surgery (or as soon as possible if surgery is within 2 weeks) omega 4-tde-kjf-fish oil 300 mg-1,000 mg capsule (Fish Oil) 1 cap PO DAILY DO NOT take the morning of surgery multivitamin 2 tab PO QAM lactobacillus combination no.4 3 billion cell capsule (Probiotic) 3,000 mmu cells PO DAILY Take morning of surgery With a small sip of water, OTHERWISE NOTHING TO EAT OR DRINK AFTER MIDNIGHT: acetaminophen 650 mg tablet 1,300 mg PO Q4H PRN Pain (if needed) famotidine 20 mg tablet (Pepcid) 10 mg PO QAM Take evening before surgery acetaminophen 650 mg tablet 1,300 mg PO Q4H PRN Pain (if needed) atorvastatin 20 mg tablet 20 mg PO HS metoprolol tartrate 25 mg tablet 12.5 mg PO HS Other Notes If you have any questions please call us at [phone] or [phone] or [phone] or [phone]
--- NOTE | 2023-07-18 13:22 | Anesthesiology Consultation ---
Date of Service July 18, 2023 Assessment & Plan (1) Encounter for pre-operative examination: Chart Review Chart Review: Acceptable Risk for Surgery (pending cardio clearance, most recent pacer check and PCP clearance ) and Patient seen in Pre Admission Testing - Please obtain cardio clearance 07/18/23 (Dr. Raines) along with most recent pacemaker check and any updated cardiac testing. Please fax preop EKG along with optimization note to cardio - Awaiting PCP clearance 07/26/23 (Dr. Lawrence [facility]) - Patient is NOT an ideal OPJ candidate (currently 23 hour obs) Per PAT appt on 07/18/23, no recent illness/disease exposures, illness related symptoms, or recent illness/disease positive tests. Will leave to surgeon's discretion if preop Covid testing needed Left TKA 01/23/22= Done under SAB at L3-4 with 2 attempts Teaching & Discussion Pre-Anesthesia Teaching/Discussion Notes: Instructed NPO after midnight before surgery,except medications with 15 cc of water. Medication instructions provided according to the PAT guidelines. History Surgery Operation Date: 07/31/23 07:00 Proposed Procedures p Left Total Hip Arthroplasty - Aristides Roger MD Height/Weight Height: 5 ft 10 in Weight: 96.4 kg Allergies Allergy/AdvReac Type Severity Reaction Status Date / Time bee venom protein (honey bee) Allergy Severe Anaphylaxis Verified 07/09/23 13:23 Medications Home Medications Medication Instructions Recorded Confirmed Last Taken acetaminophen 650 mg tablet 1,300 mg PO Q4H PRN Pain 12/27/21 07/09/23 03/05/22 famotidine 20 mg tablet (Pepcid) 10 mg PO QAM 12/27/21 07/09/23 03/04/22 multivitamin 2 tab PO QAM 12/27/21 07/09/23 03/04/22 apixaban 5 mg tablet (Eliquis) 5 mg PO BID 07/09/23 07/09/23 Unknown lactobacillus combination no.4 3 3,000 mmu cells PO DAILY 07/09/23 07/09/23 Unknown billion cell capsule (Probiotic) metoprolol tartrate 25 mg tablet 12.5 mg PO HS 07/09/23 07/09/23 Unknown omega 7-jbk-lsn-fish oil 300 1 cap PO DAILY 07/09/23 07/09/23 Unknown mg-1,000 mg capsule (Fish Oil) Past Medical History Medical History A-fib 04/2023 states as a result of cortisone injection to hip; started on eliquis and metoprolol - Follows w/ Dr Raines GERD (gastroesophageal reflux disease) well controlled and stable Hx of cardiac arrhythmia Atrial flutter s/p ablation ([facility] [place]- 10/2020) Hyperlipidemia 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 (Denise for bradycardia), checked remotely monthly Follows with PSH (Briana Morrison) Varicose vein of leg Exercise / Class Metabolic Activity II 4-5 Yardwork/Stairs/Walk up hill (one flight of stairs - no chest pain or SOB - daily aerobic activity and weight training ) Past Family History Family History Mother Clotting disorder Past Surgical History Surgical History History of cardiac radiofrequency ablation Flutter s/p ablation ([facility] [place]- 10/2020) History of total left knee replacement (TKR) 01/2022 Hx of arthroscopy of left knee Hx of colonoscopy Hx of hernia repair Hx of oral surgery dental implant Hx of rotator cuff surgery Right Past Anesthesia History No Hx of Anesthesia Complications and No Family Hx of Anesthesia Complications History of PONV No Hx of PONV and No Hx of Motion Sickness Social History Smoking Status: Never smoker Do You Dip or Chew Tobacco: No Hx Alcohol Use: No Hx Substance Use: No substance use type: does not use Review of Systems Patient denies chest pain, shortness of breath, dyspnea on exertion, cough, wheezing, palpitations. No hx of seizures, stroke, [place], apnea/snoring. No hx of blood clots or blood transfusions Physical Exam Vital Signs VITALS BP 115/67 P 51 TEMP 97.7 SP02 98% RESP 16 Constitutional no acute distress ENMT Mouth: no TMJ clicking Thyromental Distance: > or= 3.5 Finger Breadths (3.5) Mallampati Class: III Placing implant right back molar on top (07/22/23) Permanent implants to side teeth and molars Crowns to side teeth and molars Neck neck extension not limited Respiratory normal respiratory effort; no respiratory distress Auscultation: lungs clear to auscultation bilaterally; no wheezes Cardiovascular Rate/Rhythm: regular rate and regular rhythm Heart Sounds: no murmur Vessels: no carotid bruit Musculoskeletal Spine: no pain with cervical ROM Extremities: extremities normal to inspection Psychiatric Orientation: alert Lab Results Anesthesia Preop Results Results Anesthesia Widget: WBC 4.16 K/ul (4.8-10.8) L 07/18/23 Hgb 14.1 g/dl (14.0-18.0) 07/18/23 Hct 42.1 % (42.0-52.0) 07/18/23 Plt 145 K/uL (130-400) 07/18/23 Na 140 mmol/L (136-145) 07/18/23 K 4.1 mmol/L (3.5-5.1) 07/18/23 Cl 108 mmol/L (98-107) H 07/18/23 CO2 25 mmol/L (21-32) 07/18/23 BUN 21 mg/dl (6-23) 07/18/23 Creat 0.95 mg/dl (0.6-1.4) 07/18/23 Glucose Level 93 mg/dl (70-99(Fasting)) 07/18/23 PT 10.6 Seconds (9.0-12.0) 07/18/23 PTT 27 Seconds (21-31) 07/18/23 INR 1.0 (0.9-1.1) 07/18/23 Urine Color Dark Yellow 07/18/23 Urine Appearance Clear (Clear) 07/18/23 Urine pH 5.5 (4.5-7.5) 07/18/23 Urine Specific [place] 1.026 (1.000-1.030) 07/18/23 Urine Protein Negative (Negative) 07/18/23 Urine Glucose (UA) Negative (Negative) 07/18/23 Urine Ketones Trace (Negative) H 07/18/23 Urine Blood Negative (Negative) 07/18/23 Urine Nitrite Negative (Negative) 07/18/23 Urine Bilirubin Negative (Negative) 07/18/23 Urine Urobilinogen Negative (Negative) 07/18/23 Urine Leukocyte Esterase Negative (Negative) 07/18/23 Blood Type B Positive 05/09/24 Antibody Screen NEGATIVE 07/18/23 Testing Electrocardiogram Date: 07/18/23 Atrial paced rhythm with prolonged AV conduction at 57bpm Left axis deviation Nonspecific intra ventricular conduction block Minimal voltage criteria for LVH, may be normal variant. Cannot rule out anterior infarct, age undetermined Echocardiogram Date: 02/09/21 LVEF 60%. No LVH. RVD. RAD. No regional motion abnormality. Mild TR. PASP 30 mmHg. Compared to previous study 11/07/2020, there is no significant change per report.
--- NOTE | 2023-07-18 17:05 | History & Physical Report ---
Date of Service July 18, 2023 Assessment & Plan (1) Osteoarthritis of left hip: Plan: PRE-OP Diagnosis: Left hip osteoarthritis Planned Procedure: Left total hip arthroplasty Plan: Patient is scheduled to undergo this procedure at the [facility] with a 23-hour observation admission with Dr. Roger on July 31, 2023. Risks and complications of the procedure such as: Infection, bleeding, pain, scarring, nerve blood vessel damage, weakness, wound problems, stiffness, incomplete relief of symptoms, hardware failure, hardware loosening, wear, fracture, tendon or ligament injury, dislocation, leg length inequality, blood clots, Embolism, heart attack, stroke and were explained to the patient at his visit today. Informed consent to perform the procedure was obtained. Patient has an appointment to meet with anesthesia later this morning and while there will obtain CBC with differential, complete metabolic panel, PT/INR, blood type and screen, urinalysis, urine culture and sensitivity, EKG, and a nasal culture for MRSA. Patient will also need preoperative medical clearance from their primary care provider and chassis engineer. Patient states that he sees Dr. Lawrence for PCP clearance on July [address] Raines later this afternoon for cardiac clearance. Patient states that he plans on doing in-home physical therapy for the first 1 to 2 weeks postoperatively with formerly [facility] home care. Patient states that he will plans on doing outpatient physical therapy at our clinic. Patient has a walker and a shower chair. I recommended that he purchase a raised toilet seat as well as a hip kit. During today's visit we reviewed the total hip packet as well as precautions. We discussed discharge planning from the hospital. Patient declined the paperwork to obtain a handicap placard for his vehicle. We discussed lectures offered by [facility] in regards to joint replacement surgery via Zoom. I advised the patient that upon discharge from hospital we will prescribe a narcotic pain medication and anti-inflammatory. Patient will resume his Eliquis for blood clot prevention. Patient will be scheduled for 2-week postoperative follow-up visit with myself on August 13 at 10:30 AM. This chart was completed utilizing [employer] voice recognition software. Grammatical errors, random word insertions, pronoun errors, and in complete sentences are an occasional consequence of the system. Any questions or concerns about the content, text, or information contained within the body of this dictation should be addressed directly to the physician for clarification. History of Present Illness Chief Complaint: Chief Complaint: Left hip pain Primary Care Provider: Melodie Lawrence History of Present Illness (including history relevant to procedure): This 67-year-old male presents to the clinic today for his preoperative history and physical. He has been seen by Sailaja Luis and Dr. Martinez for his hip. He had a cortisone injection on 04/12/[address] Martinez. The cortisone injection caused him to go into A-fib and was subsequently put on Eliquis and metoprolol. His cortisone injection offered him about 1 month of relief but he continues to have some lateral hip pain. The pain travels into the thigh and groin. He has a left TKA that is painful most of the time due to his hip pain. After x-rays confirmed severe osteoarthritis affecting both hips patient would like to proceed with surgical intervention at this time due to failed conservative ma nagement Review Of Systems: A 12 point review of systems is performed is unremarkable except for those things stated in the HPI and past medical history. Past Medical History: Problems: Osteoarthritis of left hip Left hip pain Atrial flutter Right knee DJD Nocturia Anemia Knee pain GERD (gastroesophageal reflux disease) ED (erectile dysfunction) S/P total knee replacement using cement Sinus node dysfunction S/P orthopedic surgery, follow-up exam Pacemaker Knee pain, right Complicated varicose veins Weight disorder Hyperlipidemia Obesity Procedure History Procedure Procedure Date Comments Hernia Knee Rotator cuff Cardiac pacemaker Colonoscopy 03/06/2022 - repeat in 10 years. thre polyps removed. Total knee arthroplasty 01/23/2022 - Left Ablation 11/2020 Colonoscopy 01/27/2007 - Consider repeat within 3-5 years (or possibility sooner), depending up on the biopsy results, to re-evaluate this area of focal colitis. Colonic mucosa with mild acute and chronic inflammation consistent with active colitis ? etiology. fragments of colonic mucosa; some of the fragments show melanosis coli Allergies and Sensitivities: Bee sting(Anaphylaxis) Current Home Meds: (Last Updated 07/17 14:22) acetaminophen (Tylenol 325 mg oral tablet) 650 mg PO q4h PRN: fever/mild pain (1-3) amoxicillin (amoxicillin 500 mg oral tablet) 2,000 mg PO ONCE one hour prior to dental procedure apixaban (apixaban 5 mg oral tablet) 5 mg PO bid cholecalciferol (cholecalciferol 1000 intl units oral tablet) 1,000 Int_Unit PO Daily famotidine (famotidine 20 mg oral tablet) 10 mg PO qhs metoprolol (metoprolol succinate 25 mg oral tablet, extended release) 12.5 mg PO Daily multivitamin 1 tab PO Daily multivitamin (Vitamin B Complex) 1 tab PO Daily omega-3 polyunsaturated fatty acids (Fish Oil 1000 mg oral capsule) 1,000 mg PO Daily Chucky Red sildenafil (sildenafil 100 mg oral tablet) TAKE 1 TABLET BY MOUTH DAILY NEEDED ONE HOUR PRIOR TO SEXUAL ACTIVITY Initial Wt: 07/17 96.2 kg 212 lb Allergies Allergy/AdvReac Type Severity Reaction Status Date / Time bee venom protein (honey bee) Allergy Severe Anaphylaxis Verified 07/09/23 13:23 Home Medications Medication Instructions Recorded Confirmed Type acetaminophen 650 mg tablet 1,300 mg PO Q4H PRN Pain 12/27/21 07/09/23 History famotidine 20 mg tablet (Pepcid) 10 mg PO QAM 12/27/21 07/09/23 History multivitamin 2 tab PO QAM 12/27/21 07/09/23 History apixaban 5 mg tablet (Eliquis) 5 mg PO BID 07/09/23 07/09/23 History lactobacillus combination no.4 3 3,000 mmu cells PO DAILY 07/09/23 07/09/23 History billion cell capsule (Probiotic) metoprolol tartrate 25 mg tablet 12.5 mg PO HS 07/09/23 07/09/23 History omega 4-euk-eqh-fish oil 300 1 cap PO DAILY 07/09/23 07/09/23 History mg-1,000 mg capsule (Fish Oil) Past Med/Surg History Medical History Varicose vein of leg A-fib 04/2023 states as a result of cortisone injection to hip; started on eliquis and metoprolol - Follows w/ Dr Raines Hx of cardiac arrhythmia Atrial [place]utter s/[place] [place] 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 ([place] for bradycardia), checked remotely monthly Follows with PSH (Briana Morrison) Hyperlipidemia GERD (gastroesophageal reflux disease) well controlled and stable Surgical History Hx of oral surgery dental implant History of total left knee replacement (TKR) 01/2022 Hx of rotator cuff surgery Right Hx of hernia repair Hx of arthroscopy of left knee Hx of colonoscopy History of cardiac radiofrequency ablation Flutter s/p [place] [place] Family History Mother Clotting disorder Social History Smoking Status: Never smoker Second Hand Exposure: No; Do You Dip or Chew Tobacco: No; Hx Alcohol Use: No Hx Substance Use: No Preferred Language: Sammarinese Communication Ability: Effective Infantry Weapons Crewmember Required: No Beliefs That Will Affect Care: None marital status: Current Living Situation: Spouse How many Children do You have: 1 Feels Safe at Home: Yes Assistive Devices: None Review of Systems All systems reviewed & are unremarkable except as noted in Subjective Physical Exam Physical Exam: Physical Exam: (relevant to the procedure, including heart and lung evaluation) General: Alert and oriented x 3 with proper grooming and hygiene Eyes: Pupils are equal reactive to light with accommodation. Extraocular movements are intact Throat: Posterior oropharynx clear with absence of edema, erythema or exudate. Dentition is appropriate Cardiac: Regular rate and rhythm with no murmurs or gallops appreciated Lungs: Clear to auscultation throughout with no wheezing, rales or rhonchi Abdomen: Obese, nondistended, nontender with NABS Extremities: Left hip; flexion is limited to 90 degrees, internal rotation to -5 degrees and external rotation to 25 degrees. Straight leg raise test and centra l tests both cause referred pain in the groin. Scour and impingement tests are both positive. Patient has tenderness to palpation in the groin and posterior lateral aspect of the hip. He is neurovascularly intact. Neuro: Cranial nerves II through XII are intact with no motor or sensory deficit Skin: Normal in appearance no open skin areas or discharge Results & Data Diagnostic Findings Studies (relevant to the procedure): x-rays done 04/01/2023 of the left hip which shows bone on bone arthritis, flattening of the humeral head, and large osteophyte formation.
[2023-07-31] MEDS: Scopolamine 1 MG TDSY TD SCH (06:02)
[2023-07-31] MEDS: ACETAMINOPHEN 500 MG TAB PO SCH ×2 (06:02→13:57)
[2023-07-31] MEDS: FAMOTIDINE 20 MG TAB PO SCH (06:02)
[2023-07-31] MEDS: dexAMETHasone**PF** 10 MG/ML VIAL IV SCH (06:03)
[2023-07-31] MEDS: CeleBREX 200 MG CAP PO SCH (06:03)
[2023-07-31] MEDS: LR 500ML BOLUS, THEN 15ML/HR IV SCH (06:03)
[2023-07-31] MEDS: LR 60ML/HR IV SCH (06:03)
[2023-07-31] MEDS: traMADol HCL 50 MG TABLET PO SCH (06:03)
[2023-07-31] MEDS ORDERED: BUPIVACAINE 0.5 % 5 MG/1 ML PF 10ML VIAL ONE (06:14)
--- NOTE | 2023-07-31 06:39 | History & Physical Bridge Note ---
Date of Service July 31, 2023 History & Physical Bridge Note I have examined the patient, reviewed the History & Physical and in the interval since the performance of the History & Physical I have noted the following changes of clinical significance: no changes noted
[2023-07-31] MEDS ORDERED: MIDAZOLAM HCL 1 MG/ML 2ML VIAL ONE (06:40)
[2023-07-31] MEDS ORDERED: fentaNYL citrate PF 100 MCG/2 ML VIAL ONE (06:40)
[2023-07-31] MEDS ORDERED: PROPOFOL IV EMULSION 10 MG/ML 20 ML VIAL IV ONE (06:43)
[2023-07-31] MEDS: TRANEXAMIC ACID 1,000 MG **IV Pre-op IV SCH (06:46)
[2023-07-31] MEDS: ceFAZolin 2000MG 2,000 MG/15 ML SYR IV SCH ×2 (07:03→15:56)
[2023-07-31] MEDS ORDERED: ePHEDrine sulfate 50 MG/ML AMP ONE (07:27)
[2023-07-31] MEDS ORDERED: DEXAMETHASONE SOD INJ 4 MG/ML VIAL ONE (07:27)
[2023-07-31] MEDS ORDERED: ONDANSETRON INJ 2 MG/ML 2 ML VIAL ONE (07:27)
[2023-07-31] MEDS: ORTHO JOINT ANESTHETIC ONE (07:47)
[2023-07-31] MEDS ORDERED: ATROPINE SULFATE 0.1 MG/ML 10ML SYR IV PRN (08:26)
[2023-07-31] MEDS ORDERED: ePHEDrine sulfate 50 MG/ML AMP IV PRN (08:26)
[2023-07-31] MEDS: ROPIVACAINE 0.5% HCL/PF 246 MG, Ketorolac (*for OR use only*) 30 MG, EPINEPHrine 30MG/3... INFIL SCH (08:26)
[2023-07-31] MEDS: TRANEXAMIC ACID 1,000 MG **IV Intra-op IV SCH (08:30)
--- NOTE | 2023-07-31 08:59 | Operative Report ---
Post Operative Report Pre & Post Diagnosis Operation Date: 07/31/23 07:00 Pre-Op Diagnosis: Osteoarthritis of left hip Post-Op Diagnosis: Osteoarthritis of left hip I identified the patient and participated in the time-out.: Yes Procedure Operation Date: 07/31/23 07:00 Actual Procedures p Left Total Hip Arthroplasty(Left) - Aristides Roger MD Surgeon Aristides Roger MD Organ Grinder Ervin Herrera PA-C and SAKINA Ruelas. No resident/fellow was available Estimated Blood Loss 100 Findings Consistent with Post-Op Diagnosis Specimens left femoral head Anesthesia Type Spinal MAC Complications none Disposition Disposition: Recovery Room Indications 67-year-old gentleman with left hip arthritis refractory to conservative management. Physical exam reveals limited range of motion. X-rays show [id number] arthritis. I had a long discussion with him about the risks and benefits of surgery, alternatives to surgery, and expected outcomes. He understands that because of his atrial fibrillation on Eliquis that he is at inc reased risk for postoperative medical complications including arrhythmia, hematoma, and others. After reviewing all of his options he elected to proceed with surgery. All questions were answered. Informed consent was signed. Description of Procedure Patient was identified in the preoperative holding area where the surgical site, left hip, was marked. A spinal anesthetic was placed, then the patient was brought back to the main operating room, placed in the operating table and moved into the lateral decubitus position. Axillary roll was placed. All bony prominences were padded. Perioperative antibiotics and tranexamic acid 1 gram IV were administered. The operative extremity was prepped and draped in the normal sterile fashion. Prior to incision a multidisciplinary timeout was called. All in the room were in agreement. We began by making an incision for a posterior approach to the hip. We dissected down through subcutaneous tissues to the level of the fascia. The fascia was incised in line with the incision. Charnley bow was placed. Fatty tissue was reflected posteriorly off the back of the greater trochanter to expose the piriformis and short external rotators of the hip. Quadratus femoris was taken off the femur subperiosteally. The piriformis and short external rotators were dissected off the posterior aspect of the hip. A box cut was made in the capsule. Inferior hip capsule was released off the femur. The femoral head was dislocated. The femoral neck cut was made at our preoperative template. The acetabulum was then exposed. The labrum was sharply excised. Contents of the cotyloid fossa were removed with electrocautery. We then began reaming at a size 8 mm less than our preoperative template. We reamed up by 1 [address] the way up to a size 58 mm cup. This gave us good bleeding cancellus bone circumferentially. The acetabulum was then irrigated out and dried. The real [place] Gription cup was then impacted down into position with 45 degrees of lateral opening and 25 degrees of anteversion. A single cancellous bone screw was placed up into the ilium. Excellent fixation was obtained. A trial liner for a 36 mm femoral head was then placed. Next we turned our attention to the femur. The lateral neck was removed with a box osteotome. Intramedullary guide was used to establish the intramedullary canal. We then broached all the way up to a size 6. We began trialing with a high offset neck and a +1.5 head. Hip was reduced. Leg lengths were symmetric. The hip was stable in extension and external rotation, and stable in the sleeper position. At 90 degrees of hip flexion the hip could be internally rotated 60 degrees before levering out of the cup. I was very happy with the stability exam. Therefore the hip was dislocated and the femoral trial was removed. The acetabulum was re-exposed, and the trial liner was removed. Artie hole eliminator screw was placed. An Altrx polyethylene liner for a 36 mm femoral head was then impacted into the shell. The locking mechanism was checked to ensure that it had engaged which it had. The femur was re-exposed. The femoral canal was irrigated and dried. The real size 6 high offset Actis femoral stem was opened up. This was impacted down into position. The 36 mm ceramic femoral head with +1.5 mm offset was opened up and gently impacted down onto the trunnion. The hip was atraumatically reduced. Another 1 gram of IV tranexamic acid was started prior to closure. The wound was irrigated out with sterile Betadine solution. The periarticular injection cocktail was then placed. The short external rotators, piriformis, and posterior capsule were repaired through drill holes in the greater trochanter using #2 Vicryl. The fascia was run with a looped #1 PDS. The subcutaneous layer was closed with #1 PDS. The dermal layer was closed with 2-0 Vicryl. Zip line was used for the skin followed by a Silverlon dressing. A compressive dressing was then placed. The patient was then rolled supine. Leg lengths were rechecked and were symmetric. An abduction pillow was placed. Sedation was lifted and the patient was transferred to the recovery room in stable condition. Summary of implants: Depuy [place] Gription Acetabular Shell Sector Cup, 58 mm outer diameter [place] Cancellous bone screw, 6.5 x 40 mm Artie hole eliminator [place] Altrx Polyethylene Acetabular Liner, Neutral, with a 36 mm inner diameter DePuy Actis collared cementless Femoral stem, 12/14 taper, size 6 high offset 36 mm ceramic femoral head with +1.5 offset Postoperative course: Patient will be admitted overnight from the recovery room. Patient will be weightbearing as tolerated with posterior hip precautions. Resume Eliquis tomorrow for DVT prophylaxis. I attest to the content of the Intraoperative Record and any orders documented therein. Any exceptions are noted below.
--- NOTE | 2023-07-31 09:12 | Operative Report ---
Post Operative Report Pre & Post Diagnosis Operation Date: 07/31/23 07:00 Pre-Op Diagnosis: Osteoarthritis of left hip Post-Op Diagnosis: Osteoarthritis of left hip I identified the patient and participated in the time-out.: Yes Procedure Operation Date: 07/31/23 07:00 Actual Procedures p Left Total Hip Arthroplasty(Left) - Aristides Roger MD Surgeon TRAVON Roger MD Pharmacy Operations Coordinator Ervin Herrera PA-C and SAKINA Ruelas. No resident/fellow was available Estimated Blood Loss 100 Findings Consistent with Post-Op Diagnosis see operative report Specimens see operative report Drains none Complications none Disposition Accompanied Patient To Recovery: Yes Indications This 67 year old male presented to the office complaints of persisting left hip pain. He had tried conservative care measures without improvement. He elected to proceed with surgical intervention after being educated about potential risks and outcomes. Preoperative imaging was obtained. Description of Procedure The patient was administered a spinal anesthetic and then taken to the operating room where he was given sedation. He was prepped and draped in the [facility] sterile fashion. Please see Dr. Roger's operative report for specifics of the procedure. I was present for the entire case from initial patient positioning through final wound closure. Assistance was provided in tissue retraction, hemostasis, trial implant placement, final implant placement, and final wound closure. The patient was taken to the recovery room in satisfactory condition. I attest to the content of the Intraoperative Record and any orders documented therein. Any exceptions are noted below.
--- NOTE | 2023-07-31 10:13 | Anesthesiology Progress Note ---
Date of Service July 31, 2023 Anesthesia Post Procedure Vital Signs Vital Signs: Temp Pulse Pulse Resp BP BP Pulse Ox 07/31/23 10:05 61 24 127/67 99 07/31/23 09:55 55 L 14 127/67 96 07/31/23 09:45 56 L 12 123/68 98 07/31/23 09:35 36.3 C L 56 L 13 126/71 96 07/31/23 09:25 54 L 12 118/66 99 07/31/23 09:15 56 L 13 116/64 97 07/31/23 09:09 36 C L 58 L 16 117/59 L 100 07/31/23 05:45 36.3 C L 61 18 145/88 H 98 O2 Del Method O2 Flow Rate 07/31/23 10:05 Room Air 07/31/23 09:55 Room Air 07/31/23 09:45 Room Air 07/31/23 09:35 Room Air 07/31/23 09:25 Room Air 07/31/23 09:15 Room Air 07/31/23 09:09 Oxymask 7 07/31/23 05:45 Room Air Transfer of Care Handoff Completed per policy Notes Mental Status: alert / awake / arousable Patient Amnestic to Procedure: Yes Nausea / Vomiting: adequately controlled Pain: adequately controlled Airway Patency, RR, SpO2: stable & adequate BP & HR: stable & adequate Hydration State: stable & adequate Neuraxial Anesthesia: was administered and sensory block is resolving Anesthetic Complications: no major complications apparent
[2023-07-31] MEDS ORDERED: diphenhydrAMINE 50 MG/ML VIAL IV PRN (11:07)
[2023-07-31] MEDS ORDERED: oxyCODONE HCL IR 5 MG TAB (IMMEDIATE RELEASE) PO PRN (11:07)
[2023-07-31] MEDS ORDERED: ONDANSETRON INJ 2 MG/ML 2 ML VIAL IV PRN (11:07)
[2023-07-31] MEDS ORDERED: METOCLOPRAMIDE HCL INJ 5 MG/ML 2 ML VIAL IV PRN (11:07)
[2023-07-31] MEDS ORDERED: MAGNESIUM HYDROXIDE SUSP 30 ML UDC PO PRN (11:07)
[2023-07-31] MEDS ORDERED: NALOXONE HCL 0.4 MG/1 ML VIAL/CARP IV PRN (11:07)
[2023-07-31] MEDS ORDERED: bisacodyL 10 MG SUPP PR PRN (11:07)
[2023-07-31] MEDS ORDERED: TAMSULOSIN HCL 0.4 MG CAP PO PRN (11:07)
[2023-07-31] MEDS ORDERED: ALUMINUM/MAGNESIUM SUSP 30 ML UDC PO PRN (11:07)
[2023-07-31] MEDS ORDERED: HYDROmorphone INJ 0.5 MG/0.5 ML SYR IV PRN (11:07)
[2023-07-31] MEDS: SODIUM CHLORIDE 0.9% 1,000 ML IV SCH (11:15)
[2023-07-31] MEDS: KETOROLAC TROMETHAMINE 15 MG/ML VIAL IV SCH (12:11)
--- NOTE | 2023-07-31 15:56 | XRay Report ---
AP PELVIS History: Left total hip arthroplasty. Degenerative arthritis. Postop. FINDINGS: The patient is status post a left total hip arthroplasty. The hardware is intact. No fractu re or dislocation. IMPRESSION: Left total hip arthroplasty. No evidence for hardware complication. ACT 112: Negative or not required by law. Electronically signed by: Ken Hall M.D. 07/31/2023 3:55 PM
[2023-07-31] MEDS ORDERED: Scopolamine CHECK PATCH PLACEMENT SCH (16:00)
[2023-07-31] MEDS: FERROUS GLUCONATE 324 MG TAB PO SCH (17:45)
[2023-07-31] MEDS: ASCORBIC ACID 500 MG TAB PO SCH (17:45)
[2023-07-31] MEDS: FAMOTIDINE 10 MG TABLET PO SCH (21:46)
[2023-07-31] MEDS: METOPROLOL TARTRATE 25 MG TAB PO SCH (21:46)
[2023-07-31] MEDS: DOCUSATE SODIUM 100 MG CAP PO SCH (21:46)
[2023-07-31] MEDS: SENNA 8.6 MG TAB PO SCH (21:46)
--- OUTSIDE RECORDS SUMMARY | 2023-07-31 22:39 | External Medical Summary | Continuity of Care Document ---
Author Name Unknown Organization [facility] [address] [id number] Address [address] [place] [phone] Encounter [facility] FINNBR [id number] Date(s): 07/18/23 - 07/18/23 [facility] [address] [facility] [address] [facility] Medicine [address] [place] [id number] Encounter Diagnosis Preop examination(Discharge Diagnosis) - 07/18/23 Osteoarthritis of left hip(Discharge Diagnosis) - 07/18/23 Discharge Disposition: Home or Self Care Attending Physician: TERENCE Cotter Dennis Referring Physician: MD Kana, Aristides King Allergies, Adverse Reactions, Alerts Substance Reaction Severity Status Bee sting Anaphylaxis Active Immunizations Given and Recorded Vaccine Date Status Refusal Reason tetanus/diphtheria/pertuss, acel (Tdap) 02/08/23 R ecorded tetanus/diphtheria/pertuss, acel (Tdap) 01/15/13 G iven tetanus/diphtheria/pertuss, acel (Tdap) 1 07/21/10 Recorded influenza virus vaccine, inactivated 2 11/23/21 Re corded influenza virus vaccine, inactivated 12/13/20 Give n influenza virus vaccine, inactivated 12/01/18 Give n influenza virus vaccine, inactivated 01/03/18 Give n influenza virus vaccine, inactivated 12/11/16 Give n influenza virus vaccine, inactivated 11/25/14 Give n influenza virus vaccine, inactivated 01/15/13 Give n SARS-CoV-2 (COVID-19) mRNA BNT-162b2 vax 3 05/18/20 Recorded SARS-CoV-2 (COVID-19) mRNA BNT-162b2 vax 4 04/27/20 Recorded tetanus toxoids-diphtheria, Td (Adult) 5 03/01/98 Recorded 1Result Comment: 2020-09-14: Historical information-source unspecified 2Result Comment: high dose 3Result Comment: 2020-09-14: Historical information-source unspecified 4Result Comment: 2020-09-14: Historical information-source unspecified 5Result Comment: 2020-09-14: Historical information-source unspecified Medications amoxicillin 500 mg oral tablet Start: 04/12/22 16:00:00 EST, 4 tab, PO, ONCE, Disp# 4 tab, Refills: 1, one hour prior to dental procedure, Pharmacy: [facility] Start Date: 04/12/22 Status: Ordered apixaban 5 mg oral tablet Start: 04/15/23 12:19:00 EST, 1 tab, PO, bid, Disp# 60 tab, Refills: 11, Pharmacy: [facility] Start Date: 04/15/23 Status: Ordered cholecalciferol 1000 intl units oral tablet Start: 04/13/12 2:24:00, 1 tab, PO, Daily Start Date: 04/13/12 Status: Ordered famotidine 20 mg oral tablet Start: 01/21/23 15:31:00 EST, 0.5 tab, PO, qhs, Disp# 45 tab, Refills: 1, Pharmacy: [facility] Start Date: 01/21/23 Stop Date: 07/20/23 Status: Ordered Fish Oil 1000 mg oral capsule Start: 04/13/12 2:25:00, 1 cap, PO, Daily, Chucky Red Start Date: 04/13/12 Status: Ordered metoprolol succinate 25 mg oral tablet, extended release Start: 04/15/23 12:19:00 EST, 0.5 tab, PO, Daily, Disp# 30 tab, Refills: 11, Pharmacy: [facility] Start Date: 04/15/23 Status: Ordered multivitamin Start: 01/15/13 9:42:00, 1 tab, PO, Daily Start Date: 01/15/13 Status: Ordered sildenafil 100 mg oral tablet Start: 01/21/23 15:32:00 EST, See Instructions, Disp# 12 tab, Refills: 3, TAKE 1 TABLET BY MOUTH DAILY NEEDED ONE HOUR PRIOR TO SEXUAL ACTIVITY, Pharmacy: [facility] Start Date: 01/21/23 Status: Ordered Tylenol 325 mg oral tablet Start: 02/20/21 12:46:00 EST, 2 tab, PO, q4h, PRN: fever/mild pain (1-3) Start Date: 02/20/21 Status: Ordered Vitamin B Complex Start: 04/09/13 12:41:00, 1 tab, PO, Daily Start Date: 04/09/13 Status: Ordered Mental Status 07/18/23 Barriers to Learning one year None evide nt Mandatory Health Literacy Documentation Yes Health Literacy Communication Barriers N ever Primary Language Samoan Problem List Condition Confirmation Course Effective Dates Status H ealth Status Informant Anemia Confirmed Active Atrial flutter Confirmed Active Pacemaker Confirmed Active ED (erectile dysfunction) Confirmed Active GERD (gastroesophageal reflux disease) Confirmed Active Left hip pain Confirmed Active S/P total knee replacement using cement Confirmed Active Hyperlipidemia Confirmed Active Knee pain Confirmed Active Nocturia Confirmed Active Obesity Confirmed Active Osteoarthritis of left hip Confirmed Active Right knee DJD Confirmed Active Knee pain, right Confirmed Active Sinus node dysfunction Confirmed Active S/P orthopedic surgery, follow-up exam Confirmed Active Complicated varicose veins Confirmed Active Weight disorder Confirmed Active Diagnosis Diagnosis Type Effective Dates Health Status Clinical Service Informant Preop examination Discharge Diagnosis 07/18/23 Osteoarthritis of left hip Discharge Diagnosis 07/18/23 Procedures Procedure Date Related Diagnosis Body Site Status Colonoscopy 1 03/06/22 Completed Total knee arthroplasty 2 01/23/22 Completed Ablation 11/2020 Completed Colonoscopy 3 01/27/07 Completed Cardiac pacemaker Complet ed Hernia Completed Knee Completed Rotator cuff Completed 1repeat in 10 years. thre polyps removed. 2Left 3Consider repeat within 3-5 years (or possibility sooner), depending up on the biopsy results, to re-evaluate this area of focal colitis. Colonic mucosa with mild acute and chronic inflammation consistent with active colitis ? etiology. fragments of colonic mucosa; some of the fragments show melanosis coli Vital Signs Most recent to oldest [Reference Range]: 1 Height 174 cm (07/18/23 11:28 AM) Patient Weight 96.2 kg (07/18/23 11:28 AM) Body Mass Index 31.77 kg/m2 (07/18/23 11:28 AM) Temperature [36.5-37.9 DegC] 36.4 DegC *LOW* (07/18/23 11:28 AM) Heart Rate 65 bpm (07/18/23 11:28 AM) Respiratory Rate 18 br/min (07/18/23 11:28 AM) Blood Pressure 130/64mmHg (07/18/23 11:28 AM) Cuff Pulse Pressure 66 mmHg (07/18/23 11:28 AM) Social History Social History Type Response Smoking Status Never smoked cigaret leroy Sex Male Patient Care team information Care Team Personnel Name: MD Chrissie, Liz Position: Resident - Pathologist Member Role: Lifetime Relationship Address: Address: [address] [place] [phone] Name: KATY Harmon Stacey L Position: Nurse Pract - Cardiology Member Role: Lifetime Relationship Address: Address: [address] [facility] [place] [address] [place] Name: TERENCE Varela Lynn Position: Physician [employer]loader Exempt - Vasc Surg Member Role: Lifetime Relationship Address: Address: [address] [place] [address] Care Team Related Persons Name: INDIA RINCON Address: home [address] [facility] [phone] Name: INDIA RINCON Address: [facility] Address: [place] [address] [place], [place] [id number]
--- OUTSIDE RECORDS SUMMARY | 2023-07-31 22:39 | External Medical Summary | Continuity of Care Document ---
Author Name Unknown Organization [address] [place] [phone] Encounter [facility] FINNBR [id number] Date(s): 07/26/23 - 07/26/23 [facility] 0 [facility] 207 [facility] [address] [facility], [address] [address] [place] [phone] Encounter Diagnosis Preop testing(Discharge Diagnosis) - 07/26/23 Body mass index [BMI] 32.0-32.9, adult(Discharge Diagnosis) - 07/26/23 Atrial flutter(Discharge Diagnosis) - 07/26/23 Anemia(Discharge Diagnosis) - 07/26/23 GERD (gastroesophageal reflux disease)(Discharge Diagnosis) - 07/26/23 Hyperlipidemia(Discharge Diagnosis) - 07/26/23 Discharge Disposition: Home or Self Care Attending Physician: MD Lawrence Dongsheng Allergies, Adverse Reactions, Alerts Substance Criticality Severity Reaction Reaction Severity Status Bee sting Anaphylaxis Active Assessment and Plan Extracted from: Title:Office Visit Note Author:MD Howard, Brandie stuart Date:07/26/23 1.Preop testing Patient's METS score is at least 4. This is a class I (0 point) on reviewed cardiac risk index so there is about0.4-0.5% risk of cardiac complications (cardiac , nonfatal cardiac arrest, WV, pulmonary edema, ventricular fibrillation, primary cardiac arrest, and complete heart block).For an intermediate procedure, patient is at acceptable risk. Reviewed cardiology note. He has instruction on how to hold eliquis 2.Hyperlipidemia STATUS: Chronic stable DATA: Reviewed labs: flp GOAL: prevent ascvd PLAN: holding statin did not help with hip pain. W ill restartstatin. Diet and exercise 3.Atrial flutter STATUS: Chronicon pacemaker, stable DATA: Reviewed labs GOAL: Maintain stability PLAN: f/u cardiology 4.Anemia STATUS: Chronic stable: resolved Chronic uncontrolled: Acute uncomplicated: Acute illness with systemic symptoms: Undiagnosed new problems with uncertain prognosis: Chronic illnesses with exacerbation, progression, or side effects of treatment: 1 acute complicated injury: DATA: Review of prior external note(s) from each unique source: Review of the result(s) of each unique test: colonoscopy UTD Ordering of each unique test: Assessment requiring independent historian(s): GOAL:Resolution PLAN: will monitor after sugary 5.GERD (gastroesophageal reflux disease) STATUS: Chronic, stable DATA: Reviewed labs GOAL: resolution PLAN:[id number] prn. diet modification call prn. f/u 6 mos Time spent: Pre-visit planning/chart review: 5minutes Utfz-sq-bmhu visit: 20 minutes Post-visit documentation: minutes Care coordination: minutes Time spent on disease management/counseling in addition to CPE/AWV/WCC: minutes Total visit time: 25 minutes Immunizations Given and Recorded Vaccine Date Status [...] 5Result Comment: 2020-09-14: Historical information-source unspecified Medications apixaban 5 mg oral tablet Start: 04/15/23 12:19:00 PM EST, 1 tab, PO, bid, Disp# 60 tab, Refills: 11, Pharmacy: [facility] Start Date: 04/15/23 Status: Ordered atorvastatin 20 mg oral tablet Start: 07/26/23 9:50:00 AM EDT, 1 tab, PO, Daily, Disp# 90 tab, Refills: 3, Pharmacy: [facility] Start Date: 07/26/23 Stop Date: 07/20/24 Status: Ordered cholecalciferol 1000 intl units oral tablet Start: 04/13/12 2:24:00 AM EST, 1 tab, PO, Daily Start Date: 04/13/12 Status: Ordered famotidine 20 mg oral tablet Start: 01/21/23 3:31:00 PM EST, 0.5 tab, PO, qhs, Disp# 45 tab, Refills: 1, Pharmacy: [facility] Start Date: 01/21/23 Stop Date: 07/20/23 Status: Ordered Fish Oil 1000 mg oral capsule Start: 04/13/12 2:25:00 AM EST, 1 cap, PO, Daily, Chucky Red Start Date: 04/13/12 Status: Ordered metoprolol succinate 25 mg oral tablet, extended release Start: 04/15/23 12:19:00 PM EST, 0.5 tab, PO, Daily, Disp# 30 tab, Refills: 11, Pharmacy: [facility] Start Date: 04/15/23 Status: Ordered multivitamin Start: 01/15/13 9:42:00 AM EST, 1 tab, PO, Daily Start Date: 01/15/13 Status: Ordered sildenafil 100 mg oral tablet Start: 01/21/23 3:32:00 PM EST, See Instructions, Disp# 12 tab, Refills: 3, TAKE 1 TABLET BY MOUTH DAILY NEEDED ONE HOUR PRIOR TO SEXUAL ACTIVITY, Pharmacy: [facility] Start Date: 01/21/23 Status: Ordered Tylenol 325 mg oral tablet Start: 02/20/21 12:46:00 PM EST, 2 tab, PO, q4h, PRN: fever/mild pain (1-3) Start Date: 02/20/21 Status: Ordered Vitamin B Complex Start: 04/09/13 12:41:00 PM EST, 1 tab, PO, Daily Start Date: 04/09/13 Status: Ordered Mental Status 07/26/23 Barriers to Learning one year None evide nt Mandatory Health Literacy Documentation Yes Health Literacy Communication Barriers N ever Primary Language Syriac Problem List Condition Confirmation Course Effective Dates [...] Effective Dates Health Status Clinical Service Informant Atrial flutter Discharge Diagnosis 07/26/23 Non-Specified Anemia Discharge Diagnosis 07/26/23 Non-Specified GERD (gastroesophageal reflux disease) Discharge Diagnosis 07/26/23 Non-Specified Hyperlipidemia Discharge Diagnosis 07/26/23 Non-Specified Preop testing Discharge Diagnosis 07/26/23 Non-Specified Body mass index [BMI] 32.0-32.9, adult Discharge Diagnosis 07/26/23 Non-Specified Procedures Procedure Date Related Diagnosis Body Site [...] recent to oldest [Reference Range]: 1 Height 173.2 cm (07/26/23 9:34 AM) Patient Weight 97.8 kg (07/26/23 9:34 AM) Body Mass Index 32.6 kg/m2 (07/26/23 9:34 AM) Temperature [36.5-37.9 DegC] 36.6 DegC (07/26/23 9:34 AM) Heart Rate 57 bpm (07/26/23 9:34 AM) Respiratory Rate 20 br/min (07/26/23 9:34 AM) Blood Pressure 122/74mmHg (07/26/23 9:34 AM) Cuff Pulse Pressure 48 mmHg (07/26/23 9:34 AM) Social History Social History Type Response Smoking Status Never smoked cigaret leroy Sex Male FCM Outpt Note * MD Howard, Melodie: PERFORM Event Display: FCM Outpt Note Authored Date: [id number] Chief Complaint pre op for hip replacement History of Present Illness Pre-op: Surgery: L hip replacement Surgeon: Dr. Roger Date: 07/30 Anesthesia: general ? Fax: Last surgery: L knee replacement 2021 Complications with anesthesia: none High-risk surgery (intraperitoneal, intrathoracic, or vascular): no H/o heart disease/WV/CHF: no h/o CVA/TIA: no h/o DM on insulin: no h/o kidney disease with Cr >2: no h/o RA: no Activity: can climb a hill or at least 2 flights of stairs without chest pain or unusual SOB or difficulty Snore: no more URI illness in the past month: no Alcohol use: no Tobacco use: no Drug use: no HLD: stoppedstatin due to L hip pain - pain is not better. no muscle aches. GERD: on med. doing well. Review of Systems No fever/chills. No headache. No respiratory symptoms. No chest pain/shortness of breath. No nausea/vomiting. No abdominal pain. No change with bowels. No urinary symptoms.No bleeding. No anxiety/depression. Other systems reviewed and are neg. Physical Exam Vitals & Measurements T:36.6C HR:57(Monitored) RR:20 BP:122/74 SpO2:93% HT:173.2cm WT:97.8kg WT:97.800kg(Dosing) BMI:32.6 PHQ2 Data(Data Documented on:07/26/2023 09:33) Emotional health assessment NEGATIVE General: No acute distress. Nontoxic. Head:Normocephalic, Atraumatic. Eyes:Pupils are equal, round Normal conjunctiva. Throat:No pharyngeal erythema, no abnormal masses or lesions. Neck:Supple, Non-tender, No thyromegaly, No jugular venous distention, No lymphadenopathy Respiratory:Lungs are clear to auscultation, Respirations non-labored, Breath sounds equal JAMEL. Cardiovascular:Normal rate, Regular rhythm, No murmur, Rubs, gallops. Gastrointestinal:Soft, Non-tender, Non-distended, Normal bowel sounds. Musculoskeletal:no pitting edema Neurologic:Alert, Oriented, No focal deficits. Psychiatric:Cooperative, Appropriate mood & affect. Assessment/Plan 1.Preop testing Patient's METS score is at least 4. This is a class I (0 point) on reviewed cardiac risk index so there is about0.4-0.5% risk of cardiac complications (cardiac , nonfatal cardiac arrest, WV, pulmonary edema, ventricular fibrillation, primary cardiac arrest, and complete heart block).For an intermediate procedure, patient is at acceptable risk. Reviewed cardiology note. He has instruction on how to hold eliquis 2.Hyperlipidemia STATUS: Chronic stable DATA: Reviewed labs: flp GOAL: prevent ascvd PLAN: holding statin did not help with hip pain. Will restartstatin. Diet and exercise 3.Atrial flutter STATUS: Chronicon pacemaker, stable DATA: Reviewed labs GOAL: Maintain stability PLAN: f/u cardiology 4.Anemia STATUS: Chronic stable: resolved Chronic uncontrolled: Acute uncomplicated: Acute illness with systemic symptoms: Undiagnosed new problems with uncertain prognosis: Chronic illnesses with exacerbation, progression, or side effects of treatment: 1 acute complicated injury: DATA: Review of prior external note(s) from each unique source: Review of the result(s) of each unique test: colonoscopy UTD Ordering of each unique test: Assessment requiring independent historian(s): GOAL:Resolution PLAN: will monitor after sugary 5.GERD (gastroesophageal reflux disease) STATUS: Chronic, stable DATA: Reviewed labs GOAL: resolution PLAN:[id number] prn. diet modification call prn. f/u 6 mos Time spent: Pre-visit planning/chart review: 5minutes Aydy-ml-kmvy visit: 20 minutes Post-visit documentation: minutes Care coordination: minutes Time spent on disease management/counseling in addition to CPE/AWV/WCC: minutes Total visit time: 25 minutes Problem List/Past Medical History Ongoing Anemia Atrial flutter Complicated varicose veins ED (erectile dysfunction) GERD (gastroesophageal reflux disease) Hyperlipidemia Knee pain Knee pain, right Left hip pain Nocturia Obesity Osteoarthritis of left hip Pacemaker Right knee DJD S/P orthopedic surgery, follow-up exam S/P total knee replacement using cement Sinus node dysfunction Weight disorder Resolved Laceration of right thigh Primary osteoarthritis of left knee Procedure/Surgical History Colonoscopy| Service Date: 03/06/2022Total knee arthroplasty| Service Date: 01/23/2022blation| Service Date: olonoscopy| Service Date: 01/27/2007Rotator cuffKneeHerniaCardiac pacemaker Medications acetaminophen(Tylenol 325 mg oral tablet), 650 mg= 2 tab, PO, q4h, PRN amoxicillin(amoxicillin 500 mg oral tablet), 2000 mg= 4 tab, PO, ONCE, 1 refills apixaban(apixaban 5 mg oral tablet), 5 mg= 1 tab, PO, bid, 11 refills atorvastatin(atorvastatin 20 mg oral tablet), 20 mg= 1 tab, PO, Daily, 3 refills cholecalciferol(cholecalciferol 1000 intl units oral tablet), 1000 Int_Unit= 1 tab, PO, Daily famotidine(famotidine 20 mg oral tablet), 10 mg= 0.5 tab, PO, qhs, 1 refills metoprolol(metoprolol succinate 25 mg oral tablet, extended release), 12.5 mg= 0.5 tab, PO, Daily, 11 refills multivitamin, 1 tab, PO, Daily multivitamin(Vitamin B Complex), 1 tab, PO, Daily omega-3 polyunsaturated fatty acids(Fish Oil 1000 mg oral capsule), 1000 mg= 1 cap, PO, Daily sildenafil(sildenafil 100 mg oral tablet), See Instructions, 3 refills Allergies Bee stingAnaphylaxis Social History Smoking Status Never smoked cigarettes Alcohol - No Risk Exercise - Occasional exercise Tobacco - No Risk Family History Cancer: MGM. Heart attack: Mother. Hypertension: Father. Type II diabetes mellitus: Father. Varicose veins: Mother. Health Status Family Member(s) Immunizations Vaccine Date Status tetanus/diphtheria/pertuss, acel (Tdap) 02/08/2023 Recorded influenza virus vaccine, inactivated 11/23/2021 Recorded Comments : high dose influenza virus vaccine, inactivated 12/13/2020 Given SARS-CoV-2 (COVID-19) mRNA BNT-162b2 vax 05/18/2020 Recorded Comments : 2020-09-14: Historical information-source unspecified SARS-CoV-2 (COVID-19) mRNA BNT-162b2 vax 04/27/2020 Recorded Comments : 2020-09-14: Historical information-source unspecified influenza virus vaccine, inactivated 12/01/2018 Given influenza virus vaccine, inactivated 01/03/2018 Given influenza virus vaccine, inactivated 12/11/2016 Given influenza virus vaccine, inactivated 11/25/2014 Given influenza virus vaccine, inactivated 01/15/2013 Given tetanus/diphtheria/pertuss, acel (Tdap) 01/15/2013 Given tetanus/diphtheria/pertuss, acel (Tdap) 07/21/2010 Recorded Comments : 2020-09-14: Historical information-source unspecified tetanus toxoids-diphtheria, Td (Adult) 03/01/1998 Recorded Comments : 2020-09-14: Historical information-source unspecified Recommendations Health Maintenance Pending(in the next year) OverDue Adult Influenza Vaccine due09/07/22and every 1year Due Adult COVID-19 Vaccination due07/26/23Unknown Frequency Adult Social Determinants of Health Screening due07/26/23Unknown Frequency Falls Plan of Care due07/26/23Unknown Frequency Pneumococcal Vaccine Older Adults due07/26/23One-time only Shingles Vaccine due07/26/23One-time only Due In Future Medicare Annual Wellness Visit not due until01/22/24and every 1year Satisfied(in the past 1 year) Satisfied Adult Tdap/Td Vaccine on02/08/23.Satisfied by DENITA Fermin Paula Body Mass Index on07/26/23.Satisfied by DULCE MARIA Brownlee Donna Medicare Annual Wellness Visit on01/21/23.Satisfied by MD Howard, Melodie Electronic Signature on File Electronically Reviewed/Signed by: Melodie Lawrence MD Author Signature Dt/Tm:07/26/2023 10:02 AM Department of Family Medicine DJ Patient Care team information Care Team Personnel Name: MD Dickens Tiane Position: Resident - Pathologist Member Role: Lifetime Relationship Address: Address: [address] [place] [phone] [place] Name: KATY Harmon Stacey L Position: Nurse Pract - Cardiology Member Role: Lifetime Relationship Address: Address: [address] [place] [address] [place] Name: TERENCE Varela Lynn Position: Physician Coppersmith Helper Exempt - Vasc Surg Member Role: Lifetime Relationship Address: Address: [address] [place] [address] Care Team Related Persons Name: INDIA RINCON Address: home [address] [place] [phone] Name: INDIA RINCON Address: [facility] Address: [address] [phone]"
--- OUTSIDE RECORDS SUMMARY | 2023-07-31 22:39 | External Medical Summary | Continuity of Care Document ---
Author Name Unknown Organization [facility] [address] Address [address] [place], [place] [id number] [id number] Date(s): 07/25/23 - 07/25/23 [facility] [address], [address] [place] [address] [phone] Discharge Disposition: Home or Self Care Attending Physician: MD Avalos Soraya M Referring Physician: MD Avalos Soraya M Allergies, Adverse Reactions, Alerts Substance Criticality Severity [...] bid, Disp# 60 tab, Refills: 11, Pharmacy: [facility] Start Date: 04/15/23 Status: Ordered atorvastatin 20 mg oral tablet Start: 07/26/23 9:50:00 AM EDT, 1 tab, PO, Daily, Disp# 90 tab, Refills: 3, Pharmacy: [facility] Start Date: 07/26/23 Stop Date: 07/20/24 Status: Ordered cholecalciferol 1000 intl units oral tablet Start: 04/13/12 2:24:00 AM EST, 1 tab, PO, Daily Start Date: 04/13/12 Status: Ordered famotidine 20 mg oral tablet Start: 01/21/23 3:31:00 PM EST, 0.5 tab, PO, qhs, Disp# 45 tab, Refills: 1, Pharmacy: [facility] Start Date: 01/21/23 Stop Date: 07/20/23 Status: Ordered Fish Oil 1000 mg oral capsule Start: 04/13/12 2:25:00 AM EST, 1 cap, PO, Daily, Chucky Red Start Date: 04/13/12 Status: Ordered metoprolol succinate 25 mg oral tablet, extended release Start: 04/15/23 12:19:00 PM EST, 0.5 tab, PO, Daily, Disp# 30 tab, Refills: 11, Pharmacy: [facility] Start Date: 04/15/23 Status: Ordered multivitamin Start: 01/15/13 9:42:00 AM EST, 1 tab, PO, Daily Start Date: 01/15/13 Status: Ordered sildenafil 100 mg oral tablet Start: 01/21/23 3:32:00 PM EST, See Instructions, Disp# 12 tab, Refills: 3, TAKE 1 TABLET BY MOUTH DAILY NEEDED ONE HOUR PRIOR TO SEXUAL ACTIVITY, Pharmacy: [facility] Start Date: 01/21/23 Status: Ordered Tylenol 325 mg oral tablet Start: 02/20/21 12:46:00 PM EST, 2 tab, PO, q4h, PRN: fever/mild pain (1-3) Start Date: 02/20/21 Status: Ordered Vitamin B Complex Start: 04/09/13 12:41:00 PM EST, 1 tab, PO, Daily Start Date: 04/09/13 Status: Ordered Problem List Condition Confirmation Course Effective Dates [...] veins Confirmed Active Weight disorder Confirmed Active Procedures Procedure Date Related Diagnosis Body Site [...] 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 Patient Care team information Care Team Personnel Name: MD Dickens Tiane Position: Resident - Pathologist Member Role: Lifetime Relationship Address: Address: [address] [place] [address] [place] Name: KATY Harmon Stacey L Position: Nurse Pract - Cardiology Member Role: Lifetime Relationship Address: Address: [address] [facility] [place] [address] [place] Name: TERENCE Varela Lynn Position: Physician Sheet Manufacturing Supervisor Exempt - Vasc Surg Member Role: Lifetime Relationship Address: Address: [address] [place] [address] Care Team Related Persons Name: INDIA RINCON Address: home [address] [place], [phone] Name: INDIA RINCON Address: [facility] Address: home [address] [place], [place] [phone]
--- OUTSIDE RECORDS SUMMARY | 2023-07-31 22:39 | External Medical Summary | Continuity of Care Document ---
Author Name Unknown Organization [facility] [address] Address [address] [place], [place] [id number] Encounter [facility] [id number] Date(s): 07/18/23 - 07/18/23 [facility] [address], [address] [place] [address] [phone] Encounter Diagnosis Body mass index [BMI] 31.0-31.9, adult(Discharge Diagnosis) - 07/18/23 Preop testing(Discharge Diagnosis) - 07/18/23 Afib(Discharge Diagnosis) - 07/18/23 Anticoagulated(Discharge Diagnosis) - 07/18/23 Pacemaker(Discharge Diagnosis) - 07/18/23 Discharge Disposition: Home or Self Care Attending Physician: KATY Faria Sarah A Allergies, Adverse Reactions, Alerts Substance Reaction Severity Status Bee sting Anaphylaxis Active Assessment and Plan Extracted from: Title:Cardiology Office Visit Note Author:KATY [address] rd, Sarah A Date:07/18/23 Impression: 1.Pacemaker 2.Sinus node dysfunction 3.Atrial flutter s/p ablation 4.Hyperlipidemia 5. A fib Mr. Rincon's preop labs and EKG were reviewed. He is not having any concerninganginal symptoms. He can achieve more than 4 METS. He is low to moderate risk for cardiac complication perioperatively and does not need furthercardiac testing prior to his surgery. He may hold his anticoagulation 48-72 hours prior to surgery and resume as soon as possible postop. He did have aepisode of A-fibfollowing a cortisone injectionin April. He has been on anticoagulation since then. He did have a subsequent episode of A- fib on his device in June as well. He did not since these episodes. He has been on asmall dose of metoprololsince April. He does not tolerate higher doses. His blood pressure is controlled. He will return to the clinic in 6 months. Immunizations Given and Recorded Vaccine Date Status [...] one hour prior to dental procedure, Pharmacy: [facility] Start Date: 04/12/22 Status: Ordered apixaban 5 mg oral tablet Start: 04/15/23 12:19:00 EST, 1 tab, PO, bid, Disp# 60 tab, Refills: 11, Pharmacy: [facility] Start Date: 04/15/23 Status: Ordered cholecalciferol [...] Effective Dates Health Status Clinical Service Informant Body mass index [BMI] 31.0-31.9, adult Discharge Diagnosis 07/18/23 Non-Specified Preop testing Discharge Diagnosis 07/18/23 Non-Specified Pacemaker Discharge Diagnosis 07/18/23 Non-Specified Afib Discharge Diagnosis 07/18/23 Non-Specified Anticoagulated Discharge Diagnosis 07/18/23 Non-Specified Procedures Procedure Date Related Diagnosis Body [...] Most recent to oldest [Reference Range]: 1 Patient Weight 95.9 kg (07/18/23 2:25 PM) Body Mass Index 31.68 kg/m2 (07/18/23 2:25 PM) Heart Rate 55 bpm (07/18/23 2:28 PM) Respiratory Rate 18 br/min (07/18/23 2:28 PM) Blood Pressure 122/70mmHg (07/18/23 2:28 PM) BP Location # 1 Left Arm (07/18/23 2:28 PM) Social History Social History Type Response Smoking Status Never smoked cigaret leroy Sex Male Cardiology Outpatient Note * KATY Faria Sarah A: PERFORM, MODIFY, MODIFY Event Display: Cardiology Outpt Note Authored Date: Chief Complaint - denies chest pain/ tightness, palpitations, flutters or heart racing, or SOB denies dizziness or lightheadedness, no edema wears compression no unusual bleeding, History of Present Illness Mr. Rincon presents for preop evaluation. He is preparing for JEREMI. He feels well exercising other than hip pain. He is still doing his elliptical and stationary bike and gets his heart rate betwen 110 - 140 bpm. He also weight lifts. No sob or chest pain. No worsening LE edema, no weight gain, he has lost a little weight on purpose. He started Eliquis in April after going into afib. No s/s of bleeding. Review of Systems All other systems reviewed and negative except as discussed in the HPI Physical Exam Vitals & Measurements HR:55(Monitored) RR:18 BP:122/70 SpO2:97% WT:95.900kg(Dosing) WT:95.9kg BMI:31.68 BMI:31.68 kg/m2 Physical Examination General: Alert and oriented, No acute distress. Respiratory: Lungs are clear to auscultation, Respirations are non-labored. Cardiovascular: Normal rate, Regular rhythm, No murmur, No edema, no carotid bruits to auscultation bilaterally. Integumentary: Warm, Dry, [place] Neurologic: Alert, Oriented. Cognition and Speech: Speech clear and coherent. Psychiatric: Cooperative, Appropriate mood & affect. Assessment/Plan Impression: 1.Pacemaker 2.Sinus node dysfunction 3.Atrial flutter s/p ablation 4.Hyperlipidemia 5. A fib Mr. Rincon's preop labs and EKG were reviewed. He is not having any concerninganginal symptoms.He can achieve more than 4 METS. He is low to moderate risk for cardiac complication perioperatively and does not need furthercardiac testing prior to his surgery. He may hold his anticoagulation 48-72 hours prior to surgery and resume as soon as possible postop. He did have aepisode of A-fibfollowing a cortisone injectionin April. He has been on anticoagulation since then. He did have a subsequent episode of A-fib on his device in June as well.He did not since these episodes. He has been on asmall dose of metoprololsince April. He does not tolerate higher doses. His blood pressure is controlled. He will return to the clinic in 6 months. Problem List/Past Medical History Ongoing Anemia Atrial flutter Complicated varicose veins ED (erectile dysfunction) GERD (gastroesophageal reflux disease) Hyperlipidemia Knee pain Knee pain, right Left hip pain Nocturia Obesity Osteoarthritis of left hip Pacemaker Right knee DJD S/P orthopedic surgery, follow-up exam S/P total knee replacement using cement Sinus node dysfunction Weight disorder Historical Laceration of right thigh Primary osteoarthritis of [...] mg= 1 tab, PO, bid, 11 refills cholecalciferol(cholecalciferol 1000 intl units oral tablet), [...] mg oral tablet), See Instructions, 3 refills tetanus toxoids-diphtheria, Td (Adult)(Tetanus toxoids-Diphtheria, Adult (Td) 2 units-2 units/0.5 mL intramuscular suspension), 0.5 mL, IM, ONCE Allergies Bee stingAnaphylaxis Social History Smoking Status Never smoked cigarettes Alcohol - No Risk Exercise - Occasional exercise Tobacco - No Risk Family History Cancer: MGM. Heart attack: Mother. Hypertension: Father. Type II diabetes mellitus: Father. Varicose veins: Mother. Health Status Family Member(s) Electronic Signature on File CC: Aristides Roger MD [id number] [address] Electronically Reviewed/Signed by: KATY Cano Author Signature Dt/Tm:07/18/2023 04:57 PM [facility] [place] [facility] Patient Care team information Care Team Personnel Name: MD Dickens Tiane Position: Resident - Pathologist Member Role: Lifetime Relationship Address: Address: [address] [place], [place] [address] [address] [place] Name: KATY Harmon Stacey L Position: Nurse Pract - Cardiology Member Role: Lifetime Relationship Address: Address: [address] [place] [address] [place] Name: TERENCE Varela Lynn Position: Physician Alloy Weigher Exempt - Vasc Surg Member Role: Lifetime Relationship Address: Address: [address] [place] [address], [place] [address] Care Team Related Persons Name: INDIA RINCON Address: home [address] [place], [id number] Name: INDIA RINCON Address: [facility] [place] Address: [place] [address] [place], [place] [id number]"
[2023-08-01 06:46] LABS: Hematocrit (blood only) 34.1 % (42.0-52.0); Hemoglobin 11.7 g/dl (14.0-18.0); Immature Granulocytes # (auto) 0.04 K/uL (0.01-0.20); Immature Granulocytes % (auto) 0.5 %; Lymphocytes # (auto) 0.75 K/uL (1.20-3.40); Lymphocytes % (auto) 8.7 %; Mean Corpuscular Hemoglobin 31.7 pg (25.0-34.0); Mean Corpuscular Hgb Conc 34.3 g/dL (32.0-36.0); Mean Corpuscular Volume 92.4 fL (80.0-100.0); Mean Platelet Volume 8.7 fL (9.4-12.4); Monocytes # (auto) 0.94 K/uL (0.11-0.59); Monocytes % (auto) 10.9 %; Neutrophils # (auto) 6.91 K/uL (1.40-6.50); Neutrophils % (auto) 79.9 %; Platelet Count 141 K/uL (130-400); RDW Coefficient of Variation 14.3 % (11.5-14.5); RDW Standard Deviation 48.6 fL (36.4-46.3); Red Blood Count 3.69 M/uL (4.70-6.10); White Blood Count 8.64 K/ul (4.8-10.8)
[2023-08-01 07:02] LABS: BUN Creatinine Ratio 29.4 (10-20); Calcium 8.7 mg/dl (8.6-10.3); Est GFR (African American) 87.1 ml/min; Est GFR (Non-African American) 75.2 ml/min; Potassium 4.3 mmol/L (3.5-5.1)
[2023-08-01] MEDS: APIXABAN 5 MG TABLET PO SCH (08:12)
[2023-08-01] MEDS: MULTIVITAMIN TAB PO SCH (08:12)
[2023-08-01] MEDS: dexAMETHasone 10 MG in SYRINGE 0 ML IV SCH (08:13)
--- NOTE | 2023-08-01 10:40 | Orthopedic Progress Note ---
Date of Service August 01, 2023 Assessment & Plan (1) S/P total left hip arthroplasty: Plan: the patient was educated regarding today's findings. Conservative care measures were discussed. He was seen in conjunction with Dr. Roger, who also evaluated the patient. The Silverlon dressing was left in place. He should keep this in place for the next 2 weeks, until seen in the office on August 13 by JAJA. Written discharge instructions were provided. Prescriptions for oxycodone 5 mg and diclofenac 75 mg were sent to his pharmacy. He may supplement these with his Prilosec daily as well as Tylenol [id number]. Continue using his walker for ambulation. Ice and elevate the hip frequently to reduce pain and swelling. Admission and Anticipated Discharge Date Admission Date: July 31, 2023 Subjective This 67-year-old male is seen today in his room. He is 1 day status post left total hip arthroplasty. He states he is doing well. He denies any chest pain, shortness of breath, nausea, vomiting, or abdominal pain. He states he did not sleep well because of commotion in the hallway. He states because of this, he did walk a fair amount last night overnight. He states he feels quite good. He feels ready for discharge to home. He did eat his breakfast but has not participated in therapy yet. No additional complaints. Review of Systems Review of Systems: Unchanged from yesterday. Physical Exam Physical Exam: General: Well-developed, well-nourished, middle-aged male, in no acute distress. Laying in bed. Alert and oriented. Skin: Warm dry with good turgor. No rashes. No ecchymosis. Expected postoperative edema around the left hip. Postsurgical dressings are in place. Upon removal, there is scant strikethrough on the Silverlon dressing. He does not appear to have any active bleeding. Musculoskeletal: The patient has intact motor function of his left leg. He is able to dorsiflex and plantarflex ankle as well as flex the knee and hip. No pain with internal or external rotation of the leg. Neurologic: Gross sensation is intact across the left leg by soft touch. Peripheral pulses are 2+. Results & Data Vital Signs (Past 12 Hours) Vital Signs Temp Pulse Pulse Pulse Resp BP BP 08/01/23 09:59 36.5 C 53 L 54 L 59 L 16 127/71 145/88 H 08/01/23 07:06 36.5 C 59 L 16 127/71 08/01/23 03:09 36.4 C L 56 L 16 129/66 07/31/23 23:10 37.0 C 51 L 16 134/68 Pulse Ox O2 Del Method 08/01/23 09:59 97 08/01/23 07:06 97 Room Air 08/01/23 03:09 96 Room Air 07/31/23 23:10 98 Room Air Laboratory Results CBC obtained this morning shows a white count of 8.64. H&H of 11.7 and 34.1.
--- NOTE | 2023-08-05 08:37 | Discharge Summary ---
Date of Service August 05, 2023 Admission HPI Per Admitting Provider This 67-year-old male who presented through the office with complaints of persisting left hip pain. He had tried conservative care measures without improvement. He elected to proceed with surgical intervention in hopes of improving his hip pain. Preoperative imaging was obtained. Past Medical History: Problems: Osteoarthritis of left hip Left hip pain Atrial flutter Right knee DJD Nocturia Anemia Knee pain GERD (gastroesophageal reflux disease) ED (erectile dysfunction) S/P total knee replacement using cement Sinus node dysfunction S/P orthopedic surgery, follow-up exam Pacemaker Knee pain, right Complicated varicose veins Weight disorder Hyperlipidemia Obesity Procedure History Hernia Knee Rotator cuff Cardiac pacemaker Colonoscopy 03/06/2022 - repeat in 10 years. thre polyps removed. Total knee arthroplasty 01/23/2022 - Left Ablation 11/2020 Colonoscopy 01/27/2007 Allergies and Sensitivities: Bee sting(Anaphylaxis) Current Home Meds: (Last Updated 07/17 14:22) acetaminophen (Tylenol 325 mg oral tablet) 650 mg PO q4h PRN: fever/mild pain (1-3) amoxicillin (amoxicillin 500 mg oral tablet) 2,000 mg PO ONCE one hour prior to dental procedure apixaban (apixaban 5 mg oral tablet) 5 mg PO bid cholecalciferol (cholecalciferol 1000 intl units oral tablet) 1,000 Int_Unit PO Daily famotidine (famotidine 20 mg oral tablet) 10 mg PO qhs metoprolol (metoprolol succinate 25 mg oral tablet, extended release) 12.5 mg PO Daily multivitamin 1 tab PO Daily multivitamin (Vitamin B Complex) 1 tab PO Daily omega-3 polyunsaturated fatty acids (Fish Oil 1000 mg oral capsule) 1,000 mg PO Daily Chucky Red sildenafil (sildenafil 100 mg oral tablet) TAKE 1 TABLET BY MOUTH DAILY NEEDED ONE HOUR PRIOR TO SEXUAL ACTIVITY Initial Wt: 07/17 96.2 kg 212 lb Admission Exam Per Admitting Provider The patient's left hip had limited motion secondary to groin pain. He was ambulatory with antalgic gait. Neurovascular status of the left leg was intact and unremarkable. Principal Diagnosis Left hip status post total hip arthroplasty Discharge Exam General: Well-developed, well-nourished, middle-aged male, in no acute distress. Laying in bed. Alert and oriented. Skin: Warm and dry with good turgor. No rashes. No postsurgical ecchymosis or edema. No erythema. His postsurgical dressings are dry. Silverlon dressing was left in place. Musculoskeletal: The patient has intact motor function of his hip, knee, and ankle. He is able to flex and extend his knee as well as dorsiflex and plantarflex his ankle. He has no discomfort with logrolling or passive flexion of the hip. He is able to perform a straight leg raise. The patient has been ambulatory in his room and hallway. Neurologic: Gross sensation is intact across the left leg by soft touch. Peripheral pulses are 2+. Discharge Data Allergies Allergy/AdvReac Type Severity Reaction Status Date / Time bee venom protein (honey bee) Allergy Severe Anaphylaxis Verified 07/31/23 05:43 Consultations None Procedures Performed Operation Date: 07/31/23 07:00 Actual Procedures p Left Total Hip Arthroplasty(Left) - Aristides Roger MD Ordered Studies Postsurgical films obtained in the recovery room confirmed a well-seated total hip arthroplasty. Postsurgical lab work obtained postop day 1 confirmed adequate H&H, electrolytes, and renal function. Hospital Course (1) S/P total left hip arthroplasty: This 67-year-old male was admitted through same-day surgery on 07/30 for a left total hip arthroplasty. He underwent a successful total hip arthroplasty surgery without complication. He was taken to the recovery room in satisfactory condition. The rest of his postsurgical recovery on that day was uneventful. He had adequate pain control and was able to eat and void. Postsurgical films confirmed a reduced total hip arthroplasty without complication. The patient was reevaluated on the morning of 07/31. He denies any chest pain, shortness of breath, nausea, vomiting, or abdominal pain. He was able to eat breakfast and his pain was controlled. He verbalized a desire for discharge to home. The patient was able to participate in physical therapy and Occupational Therapy. He was able to ambulate in the hallway. Activity and pain control was deemed adequate for discharge to home with home health services. Postsurgical lab values were acceptable for discharge. His vitals remained adequate. He was afebrile during his stay. He remained bradycardic during his entire admission. Postsurgical dressing was changed on postop day 1 to a Silverlon dressing. He will leave this in place until follow-up on August 13 in the office. Written discharge instructions were provided. Prescriptions for oxycodone and diclofenac were sent to his pharmacy. He is on baseline Eliquis 5 mg twice daily, and this was resumed on the morning of 07/31 for postsurgical DVT prophylaxis. Weight-bear as tolerated using his walker. Call the office with any other concerns. Total Time Total Time Spent Total Time Spent (In Minutes): 20 Discharge Plan Discharge Items Patient Disposition: Home - Home Health Services Reason For Visit: Left Hip Osteoarthritis Discharge Diagnosis: Left hip s/p total hip replacement Condition on Discharge: Good Activity: Per Instructions section Lifting: Wait until after follow-up appointment Bathing: Keep incision dry Sexual Activity: Wait until after follow-up appointment Exercise/Sports: Wait until after follow-up appointment Driving/Machine Use: No driving until cleared by Dr. Roger Weightbearing: Full weightbearing Non-emergency contact: Surgeon Call non-emergency contact if: you have any medication questions, your pain is not controlled, your temperature is above 101, your wound has increased redness, your wound has increased drainage and your wound pain has increased Follow-up/Referrals: Emir Cotter PA-C [Physician Fishing Line Winding Machine Operator] - 08/14/23 Melodie Lawrence [Primary Care Provider] - Diet: Heart Healthy Add Attending Provider Instructions: Post-operative Instructions Dear Patient and Family/Friends, Before you are discharged from the hospital, it is important to know what to expect when you get home after surgery. To that end, we have created this sheet of discharge instructions which covers many commonly asked questions. Make sure you go through this sheet in its entirety with your nurse before you are discharged. Please note that we will go over the specifics of your surgery and recovery when you return for your first post-operative visit. Sincerely, Dr. Roger Pain Expect to be in a fair amount of pain after surgery. Remember, our goal is not to eliminate your pain, but to make it tolerable. It is a good idea to stay ahead of your pain by taking the medications you were prescribed once you get home. Typically, the pain starts improving 3-7 days after surgery. You should start weaning off the narcotic pain medication (oxycodone, hydrocodone, hydromorphone, morphine) as soon as your pain improves. Please call our office if your pain is not adequately controlled. Ice Ice your operative site at least 5 times a day for 15-30 minutes at a time. Make sure you have a thin cloth between the ice or cooling unit and your skin to prevent ledesma bite. This is especially important if you received a nerve block. Continue icing your operative site for the first 5-7 days after surgery, then as needed. Diet/Nausea/Vomiting Start by drinking clear liquids and eating crackers. If you can tolerate this, then you may resume your normal diet. If you feel nauseated or vomit, take Zofran/ondansetron (if prescribed). Please call our office if you have intractable nausea or vomiting, or, if after hours, you may go to the Emergency Room for help. Constipation Constipation is a common side effect of narcotic pain medication. If you have not had a bowel movement within 2 days after surgery, we recommend purchasing an over the counter laxative such as Milk of Magnesia, Dulcolax, or Miralax from a local pharmacy, and taking it as instructed. Call our clinic if any questions. Slings and Braces If you were placed in a sling or brace, it must be worn at all times, including sleep. You may remove your sling or brace for physical therapy, home exercises, and showering. The length of time you will be in your brace and range of motion restrictions depends on what surgery you had; these details will be reviewed at your first post-operative appointment. Nerve block The anesthesia team sometimes places a nerve block to help with post-operative pain control. This results in significant numbness and inability to move the extremity. The nerve block usually wears off in 8-12 hours, but sometimes can last up to 24 hours. Please call our office if you are still unable to move your extremity after 24 hours, unless you received a pain pump to take home. Nerve blocks typically wear off quickly, so start taking pain medication as soon as you start feeling soreness near your surgical site. Weight bearing and Range of Motion. Do not bear any weight through your operative extremity immediately after surgery. If you had upper extremity surgery, do not lift anything with that arm. If you are in a knee brace, keep it locked in place until your follow-up. We will discuss your weight bearing, range of motion, and lifting restrictions in detail at your first post-operative appointment. Physical therapy You will be given a prescription for physical therapy or occupational therapy at your first post-operative appointment. Typically, patients start therapy within 1 week of surgery Wound care and showering We will inspect your wound at your first post-operative visit, and may do a dressing change at that time. Most patients will be in a water-proof dressing that is removed 14 days after surgery. It is normal to see some dried blood on the dressing. Do not remove your dressing, paper strips or sutures yourself unless you are given permission. Showering is allowed the day after surgery. Do not scrub or remove any dressings. The wound should not be submerged underwater (i.e. in a bathtub or pool) until 4 weeks after surgery MARIE stockings If you were given white stockings, these are to be worn at all times except to shower (on both legs) for the first 2 weeks after surgery. Driving You may not drive while taking narcotic pain medication or while in a cast, splint, sling or brace. You, the patient, need to make the final determination about when you are safe to drive, however, the earliest you may consider driving after surgery is below: Hip,/Knee/Ankle Surgery: 4 weeks Fracture repair: 6 weeks Return to Work Your return to work depends on what surgery was done and what type of work you do. Please bring any paperwork your employer needs completed to your first post-operative visit. Also, bring a description of your job duties, as this helps us to understand what risks you may face at work. Travel Avoid long distance travel (greater than 1 hour) in airplanes and cars for the first 6 weeks after surgery. If you must travel, you need to have a Doppler ultrasound done before you travel to rule out a blood clot in your legs. Follow-up You should have a follow-up appointment already scheduled 1-2 days after surgery. If not, please contact our office to make this appointment before you leave the hospital. When to call the office It is normal to have swelling and bruising in the limb that was operated on. This will improve with time. It is also normal to have fevers for the first 2 days after surgery. Reasons you should call your doctor include: Uncontrolled pain; Nausea, vomiting, or constipation that does not improve with medication; Fevers over 101.5, chills, sweats; Drainage or bleeding from the wound; Foul odor; Spreading areas of redness; Any other concerns Use the oxycodone every 6 hours as needed for severe pain use the diclofenac 1 pill every 12 hours with food for the next 30 days to control mild pain add prilosec once daily for as long as you are taking the diclofenac. It will minimize the risk for GI bleeding because of your Eliquis continue Tylenol around the clock for pain control Pending Studies at Discharge: Yes Studies:: bone pathology Stand-Alone Forms: My [facility], Smoking Cessation Medications and DC Order Prescriptions: New diclofenac sodium 75 mg tablet,delayed release (DR/EC) 75 mg PO BID Qty: 60 0RF Rx Instructions: with food oxycodone 5 mg tablet 10 mg PO Q6H PRN (Reason: pain) Qty: 18 0RF Rx Instructions: initial script Continued multivitamin Tablet 2 tab PO QAM acetaminophen 650 mg Tablet 1,300 mg PO Q4H PRN (Reason: Pain) famotidine [Pepcid] 20 mg Tablet 10 mg PO QAM metoprolol tartrate 25 mg Tablet 12.5 mg PO HS omega 8-ioo-npi-fish oil [Fish Oil] 300-1,000 mg Capsule 1 cap PO DAILY Eliquis 5 mg Tablet 5 mg PO BID Probiotic 3 billion cell Capsule 3,000 mmu cells PO DAILY Rx Instructions: administer with a meal Admission Data Admit Date/Time: 07/31/23 09:19 Attending Provider: Aristides Roger Admit Provider: Aristides Roger Primary Care Provider: Melodie Lawrence Other Providers: [facility],Home Health Other Interventions: Discharge Summary Assessment (RN) Last Done: 08/01/23 09:59
== END 2023-08-01 11:06 | disposition home health service (06) ==
LOC: 3E 05:08 → ASU 05:08

== ENCOUNTER 2024-02-13 08:25 | Observation (INO) ==
--- NOTE | 2024-01-23 13:49 | History & Physical Report ---
Date of Service January 23, 2024 Assessment & Plan (1) Osteoarthritis of right hip: Plan: PRE-OP Diagnosis: Right hip osteoarthritis Planned Procedure: Right total hip arthroplasty Plan: Patient is scheduled to undergo this procedure at the [facility] following the outpatient joint pathway with Dr. Roger on February. Risks and complications of the procedure such as: Infection, bleeding, pain, scarring, nerve blood vessel damage, weakness, wound problems, stiffness, incomplete relief of symptoms, hardware failure, hardware loosening, wear, fracture, tendon or ligament injury, dislocation, leg length inequality, blood clots, Embolism, heart attack, stroke and were explained to the patient at his visit today. Informed consent to perform the procedure was obtained. Patient does not need to have another PAT appointment, however we will need to obtain a CBC with differential, complete metabolic panel, PT/INR, blood type and screen, urinalysis, urine culture and sensitivity, EKG, and a nasal culture for MRSA. We have obtained preoperative clearance from the patient's director of music Dr. Raines. Patient will also need preoperative medical clearance from their primary care provider Dr. Lawrence. This appointment is scheduled for February 02. Patient states that he plans on doing in-home physical therapy for the first 1 to 2 weeks postoperatively before transferring to outpatient physical therapy in our PT clinic with Perry. Patient has a walker, raised toilet seat, shower chair and a hip kit. During today's visit we reviewed the total hip packet as well as precautions. We discussed the outpatie nt joint pathway. I offer the patient paperwork to obtain a handicap placard for his vehicle but he declined. We discussed lectures offered by [facility] in regards to joint replacement surgery via Zoom. During today's visit I sent prescriptions to the patient's pharmacy for oxycodone, diclofenac sodium, Keflex and Zofran. He will resume his Eliquis on postoperative day 1 for DVT prophylaxis. I did check the PDMP before sending the prescription for the narcotic. Patient will have his 2-week postoperative follow-up with myself on February 25. If he has questions or concerns that should arise prior to his surgery, he will contact clinic. This chart was completed utilizing [employer] voice recognition software. Grammatical errors, random word insertions, pronoun errors, and in complete sentences are an occasional consequence of the system. Any questions or concerns about the content, text, or information contained within the body of this dictation should be addressed directly to the physician for clarification. History of Present Illness Chief Complaint: Chief Complaint: Right hip pain Primary Care Provider: Melodie Lawrence History of Present Illness (including history relevant to procedure): This [age]-year-old male presents to the clinic today for his preoperative history and physical. Patient states he has left hip replaced in July 2023 and is doing fantastic. He states that his right hip pain has increased significantly and is affecting his ability to ambulate in normal fashion. He uses Tylenol for pain control which is essentially not effective. He noticed significant limitation with range of motion of the hip. He has documented [id number] arthritis in the hip and is electing to proceed with surgical invention. ROS: A 12 point review of systems is performed and is unremarkable except for those things stated in the HPI and past medical history. Past Medical History: Problems: Hyperlipidemia GERD (gastroesophageal reflux disease) Anemia Atrial flutter Osteoarthritis of left hip Left hip pain Right knee DJD Nocturia Knee pain ED (erectile dysfunction) S/P total knee replacement using cement Sinus node dysfunction S/P orthopedic surgery, follow-up exam Pacemaker Knee pain, right Complicated varicose veins Weight disorder Obesity Procedure History Procedure Procedure Date Comments Hernia Knee Rotator cuff Cardiac pacemaker Total hip replacement 2023 Colonoscopy 03/06/2022 - repeat in 10 years. thre polyps removed. Total knee arthroplasty 01/23/2022 - Left Ablation 11/2020 Colonoscopy 01/27/2007 - Consider repeat within 3-5 years (or possibility sooner), depending up on the biopsy results, to re-evaluate this area of focal colitis. Colonic mucosa with mild acute and chronic inflammation consistent with active colitis ? etiology. fragments of colonic mucosa; some of the fragments show melanosis coli Allergies and Sensitivities: Bee sting(Anaphylaxis) Current Home Meds: (Last Updated 01/20 08:44) acetaminophen (Tylenol 325 mg oral tablet) 650 mg PO q4h PRN: fever/mild pain (1-3) apixaban (apixaban 5 mg oral tablet) 5 mg PO bid atorvastatin (atorvastatin 20 mg oral tablet) 20 mg PO Daily cephalexin (cephalexin 500 mg oral tablet) 500 mg PO tid Post op infection prophylaxis cholecalciferol (cholecalciferol 1000 intl units oral tablet) 1,000 Int_Unit PO Daily diclofenac (diclofenac sodium 75 mg oral delayed release tablet) 75 mg PO bid PRN: as needed for pain with food famotidine (famotidine 20 mg oral tablet) 1 tab PO qhs metoprolol (metoprolol succinate 25 mg oral tablet, extended release) 12.5 mg PO Daily multivitamin 1 tab PO Daily multivitamin (Vitamin B Complex) 1 tab PO Daily omega-3 polyunsaturated fatty acids (Fish Oil 1000 mg oral capsule) 1,000 mg PO Daily Chucky Red ondansetron (Zofran 4 mg oral tablet) 4 mg PO q8h post op nausea oxyCODONE (oxyCODONE 5 mg oral tablet) 5 mg PO q4h post op pain controlmax 6/dayOngoing Tx sildenafil (sildenafil 100 mg oral tablet) TAKE 1 TABLET BY MOUTH DAILY NEEDED ONE HOUR PRIOR TO SEXUAL ACTIVITY Initial Wt: 01/16 101.6 kg 224 lb Allergies Allergy/AdvReac Type Severity Reaction Status Date / Time bee venom protein (honey bee) Allergy Severe Anaphylaxis Verified 07/31/23 05:43 Home Medications Medication Instructions Recorded Confirmed Type acetaminophen 650 mg tablet 1,300 mg PO Q4H PRN Pain 12/27/21 07/31/23 History famotidine 20 mg tablet (Pepcid) 10 mg PO QAM 12/27/21 07/31/23 History multivitamin 2 tab PO QAM 12/27/21 07/31/23 History apixaban 5 mg tablet (Eliquis) 5 mg PO BID 07/09/23 07/31/23 History lactobacillus combination no.4 3 3,000 mmu cells PO DAILY 07/09/23 07/31/23 History billion cell capsule (Probiotic) metoprolol tartrate 25 mg tablet 12.5 mg PO HS 07/09/23 07/31/23 History omega 1-zfb-kjl-fish oil 300 1 cap PO DAILY 07/09/23 07/31/23 History mg-1,000 mg capsule (Fish Oil) diclofenac sodium 75 mg 75 mg PO BID #60 tabs 08/01/23 Rx tablet,delayed release oxycodone 5 mg tablet 10 mg (2 x 5 mg) PO Q6H PRN pain 08/01/23 Rx #18 tabs Past Med/Surg History Problem List (Updated 01/23/24 @ 13:48 by Emir Cotter PA-C) Osteoarthritis of right hip S/P total left hip arthroplasty Osteoarthritis of left hip Encounter for pre-operative examination Medical History (Updated 01/23/24 @ 13:48 by Emir Cotter PA-C) Varicose vein of leg A-fib 04/2023 states as a result of cortisone injection to hip; started on eliquis and metoprolol - Follows w/ Dr Raines Hx of cardiac arrhythmia Atrial flutter s/p ablation ([facility] [place] 10/[place]) 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 (Denise for bradycardia), checked remotely monthly Follows with [facility] (Briana Morrison) Hyperlipidemia GERD (gastroesophageal reflux disease) well controlled and stable Surgical History (Updated 08/01/23 @ 10:38 by Ervin Herrera PA-C) Hx of oral surgery dental implant History of total left knee replacement (TKR) 01/2022 Hx of rotator cuff surgery Right Hx of hernia repair Hx of arthroscopy of left knee Hx of colonoscopy History of cardiac radiofrequency ablation Flutter s/p ablation [place] [place] Family History Mother Clotting disorder Social History Smoking Status: Never smoker Second Hand Exposure: No; Do You Dip or Chew Tobacco: No; Hx Alcohol Use: No Hx Substance Use: No Preferred Language: Maltese Communication Ability: Effective Dialysis Social Worker Required: No Beliefs That Will Affect Care: None marital status: Current Living Situation: Spouse How many Children do You have: 1 Feels Safe at Home: Yes Assistive Devices: Walker Review of Systems All systems reviewed & are unremarkable except as noted in Subjective Physical Exam Physical Exam: Physical Exam: (relevant to the procedure, including heart and lung evaluation) General: Alert and oriented x 3 with proper grooming and hygiene Eyes: Pupils are equal and reactive to light with accommodation. Extraocular movements are intact Throat: Posterior oropharynx clear with absence of edema, erythema or exudate. Dentition is appropriate Cardiac: Regular rate and rhythm with no murmurs or gallops appreciated Lungs: Clear to auscultation throughout with no wheezing, rales or rhonchi Abdomen: Obese, nondistended, nontender with NABS Extremities: Right hip; flexion is limited to 80 degrees internal rotation to 5 degrees and external rotation to 15 degrees. Straight leg raise test, logroll test and central test are all positive. There is crepitation with passive range of motion. Patient experiences tenderness to palpation in his groin. His gait is antalgic. Neuro: Cranial nerves II through XII are intact no motor or sensory deficit Skin: Normal in appearance no open skin areas or discharge Results & Data Diagnostic Findings Studies (relevant to the procedure): XRays from 09/16/23 of the bilateral hips which shows severe [id number] arthritis in right hip
--- NOTE | 2024-02-04 10:32 | Anesthesiology Consultation ---
Date of Service February 04, 2024 Assessment & Plan (1) Encounter for pre-operative examination: - Infectious disease screening: Per assessment on 02/04/24- No known recent infectious disease contacts. Patient had onset of URI symptoms 01/30/24 which are resolving. Residual congestion/runny nose and sore throat and continuing to improve. DOS 02/13/24 (greater than 10 days from onset of symptoms). Patient advised to contact surgeon/PAT if symptoms not at baseline prior to surgery. As long as patient back to baseline by DOS- pt can proceed as scheduled without additional preop Covid testing or additional Covid contact precautions per protocol. - Eliquis instructions: Per cardiology note 01/21/24, can stop Eliquis 3 days before surgery - Outpatient joint assessment: Pt currently scheduled for inpatient pathway. If surgeon requests review for outpatient joint pathway, patient is not recommended candidate for outpatient joint program from anesthesia standpoint based on available information. - S/P Left JEREMI (07/31/23): SAB at L3-4 at [facility] - Cardiology visit (01/21/24): "He can proceed with hip replacement surgery at intermediate risk of cardiac complications in the range of 2 to 3%. This includes heart attack.. Dying from cardiac causes, arrhythmias and congestive heart failure." Chart Review Chart Review: Acceptable Risk for Surgery and Patient NOT seen in Pre Admission Testing History Surgery Operation Date: 02/13/24 10:05 Proposed Procedures p Right Total Hip Arthroplasty - Aristides Roger MD Height/Weight Height: 5 ft 9.5 in Weight: 96.162 kg Allergies Allergy/AdvReac Type Severity Reaction Status Date / Time bee venom protein (honey bee) Allergy Severe Anaphylaxis Verified 02/04/24 09:39 Medications Home Medications Medication Instructions Recorded Confirmed Last Taken acetaminophen 650 mg tablet 1,300 mg PO Q4H PRN Pain 12/27/21 02/04/24 07/31/23 04:00 1000 mg famotidine 20 mg tablet (Pepcid) 10 mg PO QAM 12/27/21 02/04/24 07/31/23 04:00 multivitamin 2 tab PO QAM 12/27/21 02/04/24 07/27/23 apixaban 5 mg tablet (Eliquis) 5 mg PO BID 07/09/23 02/04/24 07/27/23 lactobacillus combination no.4 3 3,000 mmu cells PO DAILY 07/09/23 02/04/24 07/30/23 20:00 billion cell capsule (Probiotic) metoprolol tartrate 25 mg tablet 12.5 mg PO HS 07/09/23 02/04/24 07/30/23 20:00 omega 3-xby-ypu-fish oil 300 1 cap PO DAILY 07/09/23 02/04/24 07/26/23 mg-1,000 mg capsule (Fish Oil) oxycodone 5 mg tablet 10 mg (2 x 5 mg) PO Q6H PRN pain 08/01/23 02/04/24 Unknown #18 tabs Past Medical History Medical History A-fib Taking Eliquis and metoprolol Follows w/ Dr Raines GERD (gastroesophageal reflux disease) well controlled and stable Hx of cardiac arrhythmia [place] [place] Hyperlipidemia Osteoarthritis 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 ([place] for bradycardia) Follows with [facility] cardio Varicose vein of leg Past Family History Family History Mother Clotting disorder Past Surgical History Surgical History History of cardiac radiofrequency ablation [place] [place] History of total left hip arthroplasty 07/31/23 [facility] History of total left knee replacement (TKR) 01/2022 Hx of arthroscopy of left knee Hx of colonoscopy Hx of hernia repair Hx of oral surgery dental implant Hx of rotator cuff surgery Right Social History Smoking Status: Never smoker Do You Dip or Chew Tobacco: No Hx Alcohol Use: No alcohol intake frequency: 0-2 drinks per day Hx Substance Use: No substance use type: does not use Testing Laboratory Results 02/03/24 WBC 5.50 H/H 10.8/34.5 PLATELETS 235 SODIUM 141 POTASSIUM 4.5 CHLORIDE 105 CO2 23 BUN 21 CREATININE 1.24 GLUCOSE 84 PT 14.1 INR 1.1 UA few mucous, bacteria "none" Electrocardiogram Date: 01/21/24 Atrial-paced rhythm at 52vbpm. LVH with QRS widening. Anteroseptal infarct, age undetermined. Inferior TWI. No significant change compared to 11/29/2021 per batch mixer comparison. Echocardiogram Date: 02/09/21 LVEF 60%. No LVH. RVD. RAD. No regional motion abnormality. Mild TR. PASP 30 mmHg. Compared to previous study 11/07/2020, there is no significant change per report. Other Testing Pacer check Date: 12/13/23 Mode DDDR. Battery status okay/75%. AP 79%. RVP 3%.
[~2024-02-13 08:25] MED LIST: BUPIVACAINE 0.5 % 5 MG/1 ML PF 10ML VIAL ONE
[2024-02-13] MEDS ORDERED: ePHEDrine sulfate 50 MG/ML AMP IV PRN (09:08)
[2024-02-13] MEDS ORDERED: ATROPINE SULFATE 0.1 MG/ML 10ML SYR IV PRN (09:08)
[2024-02-13] MEDS ORDERED: fentaNYL citrate PF 100 MCG/2 ML VIAL IV PRN (09:08)
[2024-02-13] MEDS ORDERED: ONDANSETRON INJ 2 MG/ML 2 ML VIAL IV PRN ×2 (09:08→12:20)
[2024-02-13] MEDS: SODIUM CHLORIDE 0.9% 1,000 ML IV SCH (09:22)
[2024-02-13] MEDS: dexAMETHasone**PF** 10 MG/ML VIAL IV SCH (09:22)
[2024-02-13] MEDS: traMADol HCL 50 MG TABLET PO SCH (09:23)
[2024-02-13] MEDS: FAMOTIDINE 20 MG TAB PO SCH (09:23)
[2024-02-13] MEDS: CeleBREX 200 MG CAP PO SCH (09:23)
[2024-02-13] MEDS: ACETAMINOPHEN 500 MG TAB PO SCH ×2 (09:23→15:02)
[2024-02-13] MEDS: LR 500ML BOLUS, THEN 15ML/HR IV SCH (09:24)
[2024-02-13] MEDS: Scopolamine 1 MG TDSY TD SCH (09:24)
[2024-02-13] MEDS: LR 60ML/HR IV SCH (09:24)
[2024-02-13] MEDS ORDERED: PROPOFOL IV EMULSION 10 MG/ML 20 ML VIAL IV ONE (09:31)
[2024-02-13] MEDS ORDERED: MIDAZOLAM HCL 1 MG/ML 2ML VIAL ONE (09:32)
[2024-02-13] MEDS ORDERED: fentaNYL citrate PF 100 MCG/2 ML VIAL ONE (09:32)
[2024-02-13] MEDS ORDERED: LIDOCAINE 2% 2 ML VIAL/AMP(20MG/ML) INFIL ONE (09:40)
--- NOTE | 2024-02-13 09:52 | History & Physical Bridge Note ---
Date of Service February 13, 2024 History & Physical Bridge Note I have examined the patient, reviewed the History & Physical and in the interval since the performance of the History & Physical I have noted the following changes of clinical significance: no changes noted
[2024-02-13] MEDS: TRANEXAMIC ACID 1,000 MG **IV Pre-op IV SCH (10:10)
[2024-02-13] MEDS: ceFAZolin 2000MG 2,000 MG/15 ML SYR IV SCH ×2 (10:30→17:46)
[2024-02-13] MEDS ORDERED: ePHEDrine sulfate 50 MG/5 ML SYR ONE (10:56)
[2024-02-13] MEDS: ORTHO JOINT ANESTHETIC ONE (10:59)
[2024-02-13] MEDS: ROPIVACAINE 0.5% HCL/PF 246 MG, Ketorolac (*for OR use only*) 30 MG, EPINEPHrine 30MG/3... INFIL SCH (10:59)
[2024-02-13] MEDS ORDERED: PHENYLEPHRINE 100MCG/ML 5ML SYR ONE (11:27)
[2024-02-13] MEDS: TRANEXAMIC ACID 1,000 MG **IV Intra-op IV SCH (11:40)
--- NOTE | 2024-02-13 12:14 | Operative Report ---
Post Operative Report Pre & Post Diagnosis Operation Date: 02/13/24 10:20 Preoperative diagnosis: Right hip osteoarthritis. Postoperative diagnosis: Right hip osteoarthritis. I identified the patient and participated in the time-out.: Yes Procedure Operation Date: 02/13/24 10:20 Right total hip arthroplasty Surgeon Aristides Roger MD Tennis Desk Team Member Dylan Myers and JAJA Cotter PA-C. No resident or fellow was available Estimated Blood Loss 100 Findings Consistent with Post-Op Diagnosis Specimens Right femoral head Anesthesia Type Spinal MAC Complications none Disposition Disposition: Recovery Room Indications 68-year-old male, with right hip osteoarthritis refractory to conservative management. X-rays demonstrate joint space narrowing, subchondral sclerosis and marginal osteophyte formation. He has previously undergone a left total hip arthroplasty by myself with a good result. He now desires to have the same operation performed on the contralateral side. I reviewed the risks and benefits of surgery, alternatives to surgery, and expected outcomes. He elected to proceed. All questions were answered. Informed consent was signed. Description of Procedure Patient was identified in the preoperative holding area where the surgical site, right hip, was marked. A spinal anesthetic was placed, then the patient was brought back to the main operating room, placed in the operating table and moved into the lateral decubitus position. Axillary roll was placed. All bony prominences were padded. Perioperative antibiotics and tranexamic acid 1 gram IV were administered. The operative extremity was prepped and draped in the normal sterile fashion. Prior to incision a multidisciplinary timeout was called. All in the room were in agreement. We began by making an incision for a posterior approach to the hip. We dissected down through subcutaneous tissues to the level of the fascia. The fascia was incised in line with the incision. Charnley bow was placed. Fatty tissue was reflected posteriorly off the back of the greater trochanter to expose the piriformis and short external rotators of the hip. Quadratus femoris was taken off the femur subperiosteally. The piriformis and short external rotators were dissected off the posterior aspect of the hip. A box cut was made in the capsule. Inferior hip capsule was released off the femur. The femoral head was dislocated. The femoral neck cut was made at our preoperative template. The acetabulum was then exposed. The labrum was sharply excised. Contents of the cotyloid fossa were removed with electrocautery. We then began reaming at a size 8 mm less than our preoperative template. We reamed up by 1 [address] the way up to a size 58 mm cup. This gave us good bleeding cancellus bone circumferentially. The acetabulum was then irrigated out and dried. The real Hardin Gription cup was then impacted down into position with 45 degrees of lateral opening and 25 degrees of anteversion. Two cancellous bone screws were placed up into the ilium. Excellent fixation was obtained. A trial liner for a 36 mm femoral head was then placed. Next we turned our attention to the femur. The lateral neck was removed with a box osteotome. Intramedullary guide was used to establish the intramedullary canal. We then broached all the way up to a size 7. We began trialing with a high offset neck and a +1.5 head. Hip was reduced. Leg lengths were symmetric. The hip was stable in extension and external rotation, and stable in the sleeper position. At 90 degrees of hip flexion the hip could be internally rotated 60 degrees before levering out of the cup. I was very happy with the stability exam. Therefore the hip was dislocated and the femoral trial was removed. The acetabulum was re-exposed, and the trial liner was removed. [place] hole eliminator screw was placed. An Altrx polyethylene liner for a 36 mm femoral head was then impacted into the shell. The locking mechanism was checked to ensure that it had engaged which it had. The femur was re-exposed. The femoral canal was irrigated and dried. The real Actis femoral stem was opened up. This was impacted down into position. The femoral head was opened up and gently impacted down onto the trunnion. The hip was atraumatically reduced. Another 1 gram of IV tranexamic acid was started prior to closure. The wound was irrigated out with sterile Betadine solution. The periarticular injection cocktail was then placed. The short external rotators, piriformis, and posterior capsule were repaired through drill holes in the greater trochanter using #2 Vicryl. The fascia was run with a looped #1 PDS. The subcutaneous layer was closed with #1 PDS. The dermal layer was closed with 2-0 Vicryl. Zip line was used for the skin followed by a Silverlon dressing. A compressive dressing was then placed. The patient was then rolled supine. Leg lengths were rechecked and were symmetric. An abduction pillow was placed. Sedation was lifted and the patient was transferred to the recovery room in stable condition. Summary of implants: Depuy Hardin Gription Acetabular Shell Sector Cup, 58 mm outer diameter Two Hardin Cancellous bone screw, 6.5 x 35 and 25 mm respectively [place] hole eliminator Hardin Altrx Polyethylene Acetabular Liner, Neutral, with a 36 mm inner diameter DePuy Actis collared cementless Femoral stem, 12/14 taper, size 7 high offset 36 mm ceramic femoral head with +1.5 offset Postoperative course: Patient will be admitted overnight from the recovery room. Patient will be weightbearing as tolerated with posterior hip precautions. Aspirin for DVT prophylaxis I attest to the content of the Intraoperative Record and any orders documented therein. Any exceptions are noted below.
--- NOTE | 2024-02-13 12:19 | Operative Report ---
Post Operative Report Pre & Post Diagnosis Operation Date: 02/13/24 10:20 Pre-Op Diagnosis: Right Hip Osteoarthritis Post-Op Diagnosis: Right Hip Osteoarthritis I identified the patient and participated in the time-out.: Yes Procedure Operation Date: 02/13/24 10:20 Actual Procedures p Right Total Hip Arthroplasty, Uncemented(Right) - Aristides Roger MD Surgeon Aristides Roger MD Skiagrapher Dylan Myers and JAJA Cotter PA-C. No resident or fellow was available Estimated Blood Loss 100 Findings Consistent with Post-Op Diagnosis Specimens Femoral head Description of Procedure Please refer to Dr. Roger's procedure for full details on the procedure. I was present for the entire case. I assisted with prepping, draping, wound retraction, suctioning, wound closure, and dressing application. I attest to the content of the Intraoperative Record and any orders documented therein. Any exceptions are noted below.
[2024-02-13] MEDS ORDERED: TAMSULOSIN HCL 0.4 MG CAP PO PRN (12:20)
[2024-02-13] MEDS ORDERED: NALOXONE HCL 0.4 MG/1 ML VIAL/CARP IV PRN (12:20)
[2024-02-13] MEDS ORDERED: bisacodyL 10 MG SUPP PR PRN (12:20)
[2024-02-13] MEDS ORDERED: METOCLOPRAMIDE HCL INJ 5 MG/ML 2 ML VIAL IV PRN (12:20)
[2024-02-13] MEDS ORDERED: oxyCODONE HCL IR 5 MG TAB (IMMEDIATE RELEASE) PO PRN (12:20)
[2024-02-13] MEDS ORDERED: diphenhydrAMINE 50 MG/ML VIAL IV PRN (12:20)
[2024-02-13] MEDS ORDERED: ALUMINUM/MAGNESIUM SUSP 30 ML UDC PO PRN (12:20)
[2024-02-13] MEDS ORDERED: MAGNESIUM HYDROXIDE SUSP 30 ML UDC PO PRN (12:20)
--- NOTE | 2024-02-13 12:28 | Operative Report ---
Post Operative Report Pre & Post Diagnosis Operation Date: 02/13/24 10:20 Pre-Op Diagnosis: Right Hip Osteoarthritis Post-Op Diagnosis: Right Hip Osteoarthritis I identified the patient and participated in the time-out.: Yes Procedure Operation Date: 02/13/24 10:20 Actual Procedures p Right Total Hip Arthroplasty, Uncemented(Right) - Aristides Roger MD Surgeon Aristides Roger MD Spine Nurse Dylan Myers and JAJA Cotter PA-C. No resident or fellow was available Estimated Blood Loss 100 Findings Consistent with Post-Op Diagnosis Specimens femoral head Description of Procedure I was present during the entire case assisting with positioning, prepping, draping, wound retraction, wound closure, dressing and abduction pillow alcon cement. No fellow present. Please see Dr. Roger procedure note for specifics of the case. I attest to the content of the Intraoperative Record and any orders documented therein. Any exceptions are noted below.
--- NOTE | 2024-02-13 12:46 | XRay Report ---
XR pelvis 1-2V routine HISTORY: 68 years-old Male In PACU - Post Surgical right hip arthroplasty COMPARISON: 09/16/2023 TECHNIQUE: AP view the pelvis FINDINGS: Right hip arthroplasty demonstrates satisfactory alignment. Expected postoperative soft tissue swelli ng with deep tissue air. Unchanged alignment of the left hip arthroplasty. No acute fracture, disloca tion or unexpected opaque foreign body. IMPRESSION: Satisfactory alignment of the right hip arthroplasty. ACT 112: Negative or not required by law. The above report was generated using voice recognition software. It may contain grammatical, syntax o r spelling errors. Electronically signed by: Shai Mcdaniels M.D. 02/13/2024 12:45 PM
--- NOTE | 2024-02-13 14:42 | Anesthesiology Progress Note ---
Date of Service February 13, 2024 Anesthesia Post Procedure Vital Signs Vital Signs: Temp Pulse Pulse Resp BP Pulse Ox O2 Del Method 02/13/24 14:12 36.9 C 52 L 18 151/80 H 100 Room Air 02/13/24 13:45 36.4 C L 52 L 18 157/84 H 100 Room Air 02/13/24 13:15 62 19 121/69 95 Room Air 02/13/24 13:05 36.7 C 57 L 18 139/79 99 Room Air 02/13/24 12:55 56 L 15 135/78 95 Room Air 02/13/24 12:45 55 L 15 145/71 H 95 Room Air 02/13/24 12:35 54 L 17 141/74 H 99 Room Air 02/13/24 12:25 59 L 15 130/71 100 Oxymask 02/13/24 12:17 36.1 C L 53 L 16 118/68 100 Oxymask 02/13/24 08:58 36.5 C 68 20 142/87 H 99 Room Air O2 Flow Rate 02/13/24 14:12 02/13/24 13:45 02/13/24 13:15 02/13/24 13:05 02/13/24 12:55 02/13/24 12:45 02/13/24 12:35 02/13/24 12:25 6 02/13/24 12:17 8 02/13/24 08:58 Pain Intensity Right Hip: Pain Intensity: 4 Transfer of Care Handoff Completed per policy Notes Mental Status: alert / awake / arousable and participated in evaluation Patient Amnestic to Procedure: Yes Nausea / Vomiting: adequately controlled Pain: adequately controlled Airway Patency, RR, SpO2: stable & adequate BP & HR: stable & adequate Hydration State: stable & adequate Neuraxial Anesthesia: was administered and sensory block is resolving Anesthetic Complications: no major complications apparent and Pt Satisfied with anesthetic care
[2024-02-13] MEDS: KETOROLAC TROMETHAMINE 15 MG/ML VIAL IV SCH (15:02)
[2024-02-13] MEDS: Scopolamine CHECK PATCH PLACEMENT SCH (15:11)
[2024-02-13] MEDS: SENNA 8.6 MG TAB PO SCH (20:43)
[2024-02-13] MEDS: DOCUSATE SODIUM 100 MG CAP PO SCH (20:46)
[2024-02-13] MEDS: METOPROLOL TARTRATE 25 MG TAB PO SCH (20:48)
[2024-02-13] MEDS ORDERED: CeleBREX 200 MG CAP PO SCH (21:00)
[2024-02-14 06:09] LABS: Basophils # (auto) 0.01 K/uL (0.00-0.20); Basophils % (auto) 0.1 %; Hematocrit (blood only) 31.6 % (42.0-52.0); Hemoglobin 9.9 g/dl (14.0-18.0); Immature Granulocytes # (auto) 0.05 K/uL (0.01-0.20); Immature Granulocytes % (auto) 0.5 %; Lymphocytes # (auto) 0.74 K/uL (1.20-3.40); Lymphocytes % (auto) 6.7 %; Mean Corpuscular Hemoglobin 27.8 pg (25.0-34.0); Mean Corpuscular Hgb Conc 31.3 g/dL (32.0-36.0); Mean Corpuscular Volume 88.8 fL (80.0-100.0); Mean Platelet Volume 8.7 fL (9.4-12.4); Monocytes # (auto) 1.14 K/uL (0.11-0.59); Monocytes % (auto) 10.4 %; Neutrophils # (auto) 9.04 K/uL (1.40-6.50); Neutrophils % (auto) 82.3 %; Platelet Count 194 K/uL (130-400); RDW Coefficient of Variation 14.9 % (11.5-14.5); RDW Standard Deviation 48.6 fL (36.4-46.3); Red Blood Count 3.56 M/uL (4.70-6.10); White Blood Count 10.98 K/ul (4.8-10.8)
[2024-02-14 06:22] LABS: BUN Creatinine Ratio 22.5 (10-20); Calcium 8.7 mg/dl (8.6-10.3); Creatinine Clr Calc Pharmacy 67.5 ml/min; Potassium 4.8 mmol/L (3.5-5.1)
[2024-02-14 07:17] VITALS: BP 129/64; RESP 18; TEMP 98.1; O2SAT 98
[2024-02-14] MEDS ORDERED: MULTIVITAMIN TAB PO SCH (09:00)
[2024-02-14] MEDS: dexAMETHasone 4 MG TAB PO SCH (09:05)
[2024-02-14] MEDS: APIXABAN 5 MG TABLET PO SCH (09:05)
[2024-02-14] MEDS: FAMOTIDINE 10 MG TABLET PO SCH (09:05)
[2024-02-14] MEDS: OMEGA-3 (PURIFIED FISH OIL) 1 GM CAP PO SCH (09:06)
[2024-02-14] MEDS: MULTIVITAMIN TAB PO SCH (09:06)
[2024-02-14] MEDS: ADVANCED PROBIOTIC 625 MG CAPSULE PO SCH (09:06)
--- NOTE | 2024-02-14 09:12 | Orthopedic Progress Note ---
Date of Service February 14, 2024 Assessment & Plan (1) S/P total hip arthroplasty: Plan: Total hip precautions reviewed Weightbearing as tolerated with walker assistance Abduction pillow use x 6 weeks Keep Silverlon dressing in place Ice with easy wrap DVT prophylaxis with Eliquis and MARIE stockings Pain controlled p.o. medication Plan is to discharge home later this morning with in-home physical therapy Follow-up at [facility] orthopedics as previously scheduled With questions contact our clinic at [phone] Admission and Anticipated Discharge Date Admission Date: February 13, 2024 Subjective This 68-year-old male is day 1 status post right total hip arthroplasty. Patient states he is doing very well. He states that it he has not had any pain medication yet this morning. He states that he is able to easily transition from his bed to a standing position and ambulate to the bathroom with his walker without difficulty. Currently he denies chest pain, shortness of breath, fever, chills, sweats, nausea, vomiting, diarrhea or difficulty voiding. He also has no complaint of numbness or tingling in the right lower extremity. Review of Systems Review of Systems: All systems reviewed & are unremarkable except as noted in Subjective Physical Exam Physical Exam: Right hip: Outer dressing was removed. Silverlon is clean dry and intact and left in place. Patient is able to easily perform active straight leg raise test and actively dorsi and plantarflex foot. Quad strength is 4+ out of 5. He tolerates light passive hip flexion to 80 degrees and has no discomfort with light passive external rotation but does feel a pulling sensation with light passive internal rotation. He is neurovascularly intact in the right lower extremity. Results & Data Vital Signs (Past 12 Hours) Vital Signs Temp Pulse Pulse Resp BP Pulse Ox O2 Del Method 02/14/24 07:14 36.7 C 51 L 18 129/64 98 Room Air 02/14/24 04:30 36.5 C 60 16 146/78 H 99 Room Air 02/14/24 00:33 36.7 C 52 L 16 120/62 97 Room Air Diagnostic Findings Laboratory Results WBC 10.98 K/ul (4.8-10.8) H 02/14/24 05:16 RBC 3.56 M/uL (4.70-6.10) L 02/14/24 05:16 Hgb 9.9 g/dl (14.0-18.0) L 02/14/24 05:16 Hct 31.6 % (42.0-52.0) L 02/14/24 05:16 MCV 88.8 fL (80.0-100.0) 02/14/24 05:16 MCH 27.8 pg (25.0-34.0) 02/14/24 05:16 MCHC 31.3 g/dL (32.0-36.0) L 02/14/24 05:16 RDW Std Deviation 48.6 fL (36.4-46.3) H 02/14/24 05:16 RDW Coeff of Denae 14.9 % (11.5-14.5) H 02/14/24 05:16 Plt Count 194 K/uL (130-400) 02/14/24 05:16 MPV 8.7 fL (9.4-12.4) L 02/14/24 05:16 Immature Gran % (Auto) 0.5 % 02/14/24 05:16 Neut % (Auto) 82.3 % 02/14/24 05:16 Lymph % (Auto) 6.7 % 02/14/24 05:16 [place] % (Auto) 10.4 % 02/14/24 05:16 Eos % (Auto) 0.0 % 02/14/24 05:16 Baso % (Auto) 0.1 % 02/14/24 05:16 Neut # (Auto) 9.04 K/uL (1.40-6.50) H 02/14/24 05:16 Lymph # (Auto) 0.74 K/uL (1.20-3.40) L 02/14/24 05:16 [place] # (Auto) 1.14 K/uL (0.11-0.59) H 02/14/24 05:16 Eos # (Auto) 0.00 K/uL (0.00-0.50) 02/14/24 05:16 Baso # (Auto) 0.01 K/uL (0.00-0.20) 02/14/24 05:16 Immature Gran # (Auto) 0.05 K/uL (0.01-0.20) 02/14/24 05:16 Sodium 137 mmol/L (136-145) 02/14/24 05:16 Potassium 4.8 mmol/L (3.5-5.1) 02/14/24 05:16 Chloride 108 mmol/L (98-107) H 02/14/24 05:16 Carbon Dioxide 22 mmol/L (21-32) 02/14/24 05:16 Anion Gap 7 (3-11) 02/14/24 05:16 BUN 27 mg/dl (6-23) H 02/14/24 05:16 Creatinine 1.20 mg/dl (0.6-1.4) 02/14/24 05:16 Est Cr Clr Drug Dosing 67.5 ml/min 02/14/24 05:16 eGFR 65.46 02/14/24 05:16 BUN/Creatinine Ratio 22.5 (10-20) H 02/14/24 05:16 Glucose 116 mg/dl (70-99(Fasting)) H 02/14/24 05:16 Calcium 8.7 mg/dl (8.6-10.3) 02/14/24 05:16 Blood Type B Positive 02/13/24 09:06 Antibody Screen NEGATIVE 02/13/24 09:06 Impressions Pelvis X-Ray 02/13/24 12:20 XR pelvis 1-2V routine HISTORY: 68 years-old Male In PACU - Post Surgical right hip arthroplasty COMPARISON: 09/16/2023 TECHNIQUE: AP view the pelvis FINDINGS: Right hip arthroplasty demonstrates satisfactory alignment. Expected postoperative soft tissue swelling with deep tissue air. Unchanged alignment of the left hip arthroplasty. No acute fracture, dislocation or unexpected opaque foreign body. IMPRESSION: Satisfactory alignment of the right hip arthroplasty. ACT 112: Negative or not required by law. The above report was generated using voice recognition software. It may contain grammatical, syntax or spelling errors. Electronically signed by: Shai Mcdaniels M.D. 02/13/2024 12:45 PM
--- NOTE | 2024-02-14 09:16 | Discharge Summary ---
Date of Service February 14, 2024 Admission HPI Per Admitting Provider History of Present Illness (including history relevant to procedure): This 68-year-old male presents to the clinic today for his preoperative history and physical. Patient states he has left hip replaced in July 2023 and is doing fantastic. He states that his right hip pain has increased significantly and is affecting his ability to ambulate in normal fashion. He uses Tylenol for pain control which is essentially not effective. He noticed significant limitation with range of motion of the hip. He has documented iymj-ht-gfpt arthritis in the hip and is electing to proceed with surgical invention. ROS: A 12 point review of systems is performed and is unremarkable except for those things stated in the HPI and past medical history. Past Medical History: Problems: Hyperlipidemia GERD (gastroesophageal reflux disease) Anemia Atrial flutter Osteoarthritis of left hip Left hip pain Right knee DJD Nocturia Knee pain ED (erectile dysfunction) S/P total knee replacement using cement Sinus node dysfunction S/P orthopedic surgery, follow-up exam Pacemaker Knee pain, right Complicated varicose veins Weight disorder Obesity Procedure History Procedure Procedure Date Comments Hernia Knee Rotator cuff Cardiac pacemaker Total hip replacement 2023 Colonoscopy 03/06/2022 - repeat in 10 years. thre polyps removed. Total knee arthroplasty 01/23/2022 - Left Ablation 11/2020 Colonoscopy 01/27/2007 - Consider repeat within 3-5 years (or possibility sooner), depending up on the biopsy results, to re-evaluate this area of focal colitis. Colonic mucosa with mild acute and chronic inflammation consistent with active colitis ? etiology. fragments of colonic mucosa; some of the fragments show melanosis coli Allergies and Sensitivities: Bee sting(Anaphylaxis) Current Home Meds: (Last Updated 01/20 08:44) acetaminophen (Tylenol 325 mg oral tablet) 650 mg PO q4h PRN: fever/mild pain (1-3) apixaban (apixaban 5 mg oral tablet) 5 mg PO bid atorvastatin (atorvastatin 20 mg oral tablet) 20 mg PO Daily cephalexin (cephalexin 500 mg oral tablet) 500 mg PO tid Post op infection prophylaxis cholecalciferol (cholecalciferol 1000 intl units oral tablet) 1,000 Int_Unit PO Daily diclofenac (diclofenac sodium 75 mg oral delayed release tablet) 75 mg PO bid PRN: as needed for pain with food famotidine (famotidine 20 mg oral tablet) 1 tab PO qhs metoprolol (metoprolol succinate 25 mg oral tablet, extended release) 12.5 mg PO Daily multivitamin 1 tab PO Daily multivitamin (Vitamin B Complex) 1 tab PO Daily omega-3 polyunsaturated fatty acids (Fish Oil 1000 mg oral capsule) 1,000 mg PO Daily Chucky Red ondansetron (Zofran 4 mg oral tablet) 4 mg PO q8h post op nausea oxyCODONE (oxyCODONE 5 mg oral tablet) 5 mg PO q4h post op pain controlmax 6/dayOngoing Tx sildenafil (sildenafil 100 mg oral tablet) TAKE 1 TABLET BY MOUTH DAILY NEEDED ONE HOUR PRIOR TO SEXUAL ACTIVITY Initial Wt: 01/16 101.6 kg 224 lb Admission Exam Per Admitting Provider Physical Exam: (relevant to the procedure, including heart and lung evaluation) General: Alert and oriented x 3 with proper grooming and hygiene Eyes: Pupils are equal and reactive to light with accommodation. Extraocular movements are intact Throat: Posterior oropharynx clear with absence of edema, erythema or exudate. Dentition is appropriate Cardiac: Regular rate and rhythm with no murmurs or gallops appreciated Lungs: Clear to auscultation throughout with no wheezing, rales or rhonchi Abdomen: Obese, nondistended, nontender with NABS Extremities: Right hip; flexion is limited to 80 degrees internal rotation to 5 degrees and external rotation to 15 degrees. Straight leg raise test, logroll test and central test are all positive. There is crepitation with passive range of motion. Patient experiences tenderness to palpation in his groin. His gait is antalgic. Neuro: Cranial nerves II through XII are intact no motor or sensory deficit Skin: Normal in appearance no open skin areas or discharge Principal Diagnosis Right hip osteoarthritis Discharge Exam Right hip: Outer dressing was removed. Silverlon is clean dry and intact and left in place. Patient is able to easily perform active straight leg raise test and actively dorsi and plantarflex foot. Quad strength is 4+ out of 5. He tolerates light passive hip flexion to 80 degrees and has no discomfort with light passive external rotation but does feel a pulling sensation with light passive internal rotation. He is neurovascularly intact in the right lower extremity. Discharge Data Allergies Allergy/AdvReac Type Severity Reaction Status Date / Time bee venom protein (honey bee) Allergy Severe Anaphylaxis Verified 02/13/24 08:54 Procedures Performed Operation Date: 02/13/24 10:20 Actual Procedures p Right Total Hip Arthroplasty, Uncemented(Right) - Aristides Roger MD Hospital Course (1) S/P total hip arthroplasty: Patient had an uneventful overnight stay following total hip arthroplasty. He is doing very well this morning. He is anxious to be discharged home later this morning. Total hip precautions reviewed Weightbearing as tolerated with walker assistance Abduction pillow use x 6 weeks Keep Silverlon dressing in place Ice with easy wrap DVT prophylaxis with Eliquis and MARIE stockings Pain controlled p.o. medication Plan is to discharge home later this morning with in-home physical therapy Follow-up at [facility] orthopedics as previously scheduled With questions contact our clinic at [phone] Total Time Total Time Spent Total Time Spent (In Minutes): 20 mins Discharge Plan Discharge Items Patient Disposition: Home - Home Health Services Reason For Visit: S/P RIGHT TOTAL HIP ARTHROPLASTY Discharge Diagnosis: Status post right total hip arthroplasty Activity: As commented below Lifting: None Bathing: Keep incision dry Bathing Comment: May shower today Sexual Activity: Wait until after follow-up appointment Exercise/Sports: Wait until after follow-up appointment Driving/Machine Use: No driving until cleared by verification specialist Weightbearing: Right weightbearing Weightbearing Comment: As tolerated with walker assistance Non-emergency contact: Surgeon Call non-emergency contact if: you have any medication questions, your pain is not controlled, your temperature is above 101.5, your wound has increased drainage and your wound pain has increased Follow-up/Referrals: Melodie Lawrence [Primary Care Provider] - Diet: Regular Addtl Attending Provider Instructions: Post-operative Instructions Dear Patient and Family/Friends, Before you are discharged from the hospital, it is important to know what to expect when you get home after surgery. To that end, we have created this sheet of discharge instructions which covers many commonly asked questions. Make sure you go through this sheet in its entirety with your nurse before you are dischar nikhil. Please note that we will go over the specifics of your surgery and recovery when you return for your first post-operative visit. Sincerely, Dr. Roger *Please take all of your originally prescribed medications at your preop visit as instructed.* Pain Expect to be in a fair amount of pain after surgery. Remember, our goal is not to eliminate your pain, but to make it tolerable. It is a good idea to stay ahead of your pain by taking the medications you were prescribed once you get home. Typically, the pain starts improving 3-7 days after surgery. You should start weaning off the narcotic pain medication (oxycodone, hydrocodone, hydromorphone, morphine) as soon as your pain improves. Please call our office if your pain is not adequately controlled. Ice Ice your operative site at least 5 times a day for 15-30 minutes at a time. Make sure you have a thin cloth between the ice or cooling unit and your skin to prevent ledesma bite. This is especially important if you received a nerve block. Continue icing your operative site for the first 5-7 days after surgery, then as needed. Diet/Nausea/Vomiting Start by drinking clear liquids and eating crackers. If you can tolerate this, then you may resume your normal diet. If you feel nauseated or vomit, take Zofran/ondansetron (if prescribed). Please call our office if you have intractable nausea or vomiting, or, if after hours, you may go to the Emergency Room for help. Constipation Constipation is a common side effect of narcotic pain medication. If you have not had a bowel movement within 2 days after surgery, we recommend purchasing an over the counter laxative such as Milk of Magnesia, Dulcolax, or Miralax from a local pharmacy, and taking it as instructed. Call our clinic if any questions. Nerve block The anesthesia team sometimes places a nerve block to help with post-operative pain control. This results in significant numbness and inability to move the extremity. The nerve block usually wears off in 8-12 hours, but sometimes can last up to 24 hours. Please call our office if you are still unable to move your extremity after 24 hours, unless you received a pain pump to take home. Nerve blocks typically wear off quickly, so start taking pain medication as soon as you start feeling soreness near your surgical site. Weight bearing and Range of Motion. Do not bear any weight through your operative extremity immediately after surgery. If you had upper extremity surgery, do not lift anything with that arm. If you are in a knee brace, keep it locked in place until your follow-up. We will discuss your weight bearing, range of motion, and lifting restrictions in detail at your first post-operative appointment. Continuous Passive Motion (CPM) Machine If you were prescribed a CPM machine, it will start after your first post- operative appointment, at which time we will give you instructions on the range of motion settings and duration of treatment Physical therapy You will be given a prescription for physical therapy or occupational therapy at your first post-operative appointment. Typically, patients start therapy within 1 week of surgery Wound care and showering We will inspect your wound at your first post-operative visit, and may do a dressing change at that time. Most patients will be in a water-proof dressing that is removed 14 days after surgery. It is normal to see some dried blood on the dressing. Do not remove your dressing, paper strips or sutures yourself unless you are given permission. Showering is allowed the day after surgery. Do not scrub or remove any dressings. The wound should not be submerged underwater (i.e. in a bathtub or pool) until 4 weeks after surgery MARIE stockings If you were given white stockings, these are to be worn at all times except to shower (on both legs) for the first 2 weeks after surgery. Driving You may not drive while taking narcotic pain medication or while in a cast, splint, sling or brace. You, the patient, need to make the final determination about when you are safe to drive, however, the earliest you may consider driving after surgery is below: Hand/Wrist/Elbow Surgery: 3 days Shoulder Surgery: 2 weeks Hip,/Knee/Ankle Surgery: 4 weeks Fracture repair: 6 weeks Return to Work Your return to work depends on what surgery was done and what type of work you do. Please bring any paperwork your employer needs completed to your first post-operative visit. Also, bring a description of your job duties, as this helps us to understand what risks you may face at work. Travel Avoid long distance travel (greater than 1 hour) in airplanes and cars for the first 6 weeks after surgery. If you must travel, you need to have a Doppler ultrasound done before you travel to rule out a blood clot in your legs. Follow-up You should have a follow-up appointment already scheduled 1-2 days after surgery. If not, please contact our office to make this appointment before you leave the hospital. When to call the office It is normal to have swelling and bruising in the limb that was operated on. This will improve with time. It is also normal to have fevers for the first 2 days after surgery. Reasons you should call your doctor include: Uncontrolled pain; Nausea, vomiting, or constipation that does not improve with medication; Fevers over 101.5, chills, sweats; Drainage or bleeding from the wound; Foul odor; Spreading areas of redness; Any other concerns. Contact Information Please call Dr. Roger's office at [phone] with any concerns. Pending Studies at Discharge: No Stand-Alone Forms: [facility] Medications and DC Order Prescriptions: Continued multivitamin Tablet 2 tab PO QAM acetaminophen 650 mg Tablet 1,300 mg PO Q4H PRN (Reason: Pain) famotidine [Pepcid] 20 mg Tablet 10 mg PO QAM metoprolol tartrate 25 mg Tablet 12.5 mg PO HS omega 8-fxv-too-fish oil [Fish Oil] 300-1,000 mg Capsule 1 cap PO DAILY Eliquis 5 mg Tablet 5 mg PO BID Probiotic 3 billion cell Capsule 3,000 mmu cells PO DAILY Rx Instructions: administer with a meal oxycodone 5 mg tablet 10 mg PO Q6H PRN (Reason: pain) Qty: 18 0RF Rx Instructions: initial script Admission Data Admit Date/Time: 02/13/24 12:20 Attending Provider: Aristides Roger Admit Provider: Aristides Roger Primary Care Provider: Melodie Lawrence Other Providers: [facility]; [facility]
[2024-02-14 10:02] VITALS: PULSE 60
[2024-02-14] MEDS ORDERED: CeleBREX 200 MG CAP PO SCH (21:00)
--- OUTSIDE RECORDS SUMMARY | 2024-02-15 15:53 | External Medical Summary | Continuity of Care Document ---
Author Name Unknown Organization [place] [id number] Address [address] [place] [address] [id number] Care Team Providers Care A P Supervisor Name Role Phone Melodie Lawrence Primary Care Physician [phone] [id number] Date(s): 12/10/23 - 12/10/23 [facility] [address] [place] [id number] [facility] [address] [place] [id number] Encounter Diagnosis Arthritis of right hip(Discharge Diagnosis) - 12/10/23 Discharge Disposition: Home or Self Care Attending Physician: MD Roger Paul K Allergies, Adverse Reactions, Alerts Substance Criticality Severity Reaction Reaction Severity Status Bee sting Anaphylaxis Active Assessment and Plan Extracted from: Title:Aristides Roger Author:Elvia Perez te:12/10/23 Impression: 67 YearsoldM ale1) 4 months s/p left JEREMI 2) Severe right hip arthritis Plan: - I discussed the patient's treatment options of conservative management versus surgical intervention and they will elect to proceed with surgery. Surgical plan to include right JEREMI. Reviewed risks and benefits of surgery, alternatives, and expected outcomes. All questions were answered. - Reminded to get antibiotics before any dental work, lifetime recommendation - Follow-up for pre-operative appointment The patient understood all my instructions and explanations; all their questions were satisfactorily addressed. Immunizations Given and Recorded Vaccine Date Status [...] bid, Disp# 60 tab, Refills: 11, [facility] Start Date: 04/15/23 Status: Ordered atorvastatin 20 mg oral tablet Start: 07/26/23 9:50:00 AM EDT, 1 tab, PO, Daily, Disp# 90 tab, Refills: 3, Pharmacy: [facility] Start Date: 07/26/23 Stop Date: 07/20/24 Status: Ordered cholecalciferol 1000 intl units oral tablet Start: 04/13/12 2:24:00 AM EST, 1 tab, PO, Daily Start Date: 04/13/12 Status: Ordered famotidine 20 mg oral tablet Start: 08/19/23 4:16:00 PM EDT, 1 tab, PO, qhs, Disp# 90 tab, Refills: 1, Pharmacy: [facility] Start Date: 08/19/23 Status: Ordered Fish Oil 1000 mg oral [...] Start Date: 04/09/13 Status: Ordered Mental Status 12/10/23 Barriers to Learning one year None evide nt Mandatory Health Literacy Documentation Yes Health Literacy Communication Barriers N ever Primary Language Korean Problem List Condition Confirmation Course Effective Dates [...] Diagnosis Diagnosis Type Effective Dates Health Status Cl inical Service Informant Arthritis of right hip Discharge Diagnosis 12/10/23 Procedures Procedure Date Related Diagnosis Body Site Status Total hip replacement 2023 Com pleted Colonoscopy 1 03/06/22 Completed Total knee arthroplasty [...] Status Never smoked cigaret leroy Sex Male Sex Representation Male (finding) Ortho Outpt Note * MD Kana, Aristides King: MODIFY MD Roger Paul K: MODIFY, MODIFY Event Display: Ortho Outpt Note Authored Date: [id number] Primary Care Provider MD Howard, Marcnarciso Chief Complaint right hip pain History of Present Illness Shirley Jose presents today forf/u s/p left total hip arthroplasty, DOS 07/31/23. He states his left hip is fantastic, but says his right hip is very bad, close to how bad his left hip was prior to surgery.After his left JEREMI, hedenies being light headed.He would like to get his right hip done as well. For the right hip, he takes Tylenol as needed.Heis on his regular regimen of Eliquis for DVT prophylaxis.He notes an increase in strength as of late. Review of Systems A 14 point review of systems isavailable in the EMR. Physical Exam Focusing on the patient'sRIGHT lower extremity: Sensation intact to light touch L3 to S1 dermatomes Incision is well-healed with noredness or signs of infection on LEFT - Tenderness over incision on LEFT ROM: Flexion limited to 75/ Abduction limited to 15 / External rotation 30/ Internal rotation0 + Log roll + SARATH test, 30 inches off bed + Stinchfield test Diagnostic Results I reviewed XRays from09/16/23of the bilateral hips whichshows severe wetj-ww-lnos arthritis in right hip. Assessment/Plan Impression: 67 YearsoldMale1) 4 months s/p left JEREMI 2) Severe right hip arthritis Plan: - I discussed the patient's treatment options of conservative management versus surgical intervention and they will elect to proceed with surgery. Surgical plan to include right JEREMI. Reviewed risks and benefits of surgery, alternatives, and expected outcomes. All questions were answered. - Reminded to get antibiotics before any dental work, lifetime recommendation - Follow-up for pre-operative appointment The patient understood all my instructions and explanations; all their questions were satisfactorily addressed. Attestation I,Elvia Perez,scribing for and in the presence of, Aristides Roger, on this date,12/10/2023 11:52:32. Problem List/Past Medical History Ongoing Anemia Atrial [...] Primary osteoarthritis of left knee Procedure/Surgical History Total hip replacement| Service Date: olonoscopy| Service Date: 03/06/2022Total knee arthroplasty| Service Date: 01/23/2022blation| Service Date: olonoscopy| Service Date:01/27/2007Rotator cuffKneeHerniaCardiac pacemaker Medications acetaminophen(Tylenol 325 mg oral tablet), 650 mg= 2 tab, PO, q4h, PRN apixaban(apixaban 5 mg oral tablet), 5 mg= 1 tab, PO, bid, 11 refills atorvastatin(atorvastatin 20 mg oral tablet), 20 mg= 1 tab, PO, Daily, 3 refills cholecalciferol(cholecalciferol 1000 intl units oral tablet), 1000 Int_Unit= 1 tab, PO, Daily famotidine(famotidine 20 mg oral tablet), 1 tab, PO, qhs metoprolol(metoprolol succinate 25 mg oral tablet, extended [...] the next year) OverDue Adult Influenza Vaccine due09/08/23and every 1year Due Adult COVID-19 Vaccination due12/10/23Unknown Frequency Adult Social Determinants of Health Screening due12/10/23Unknown Frequency Falls Plan of Care due12/10/23Unknown Frequency Pneumococcal Vaccine Older Adults due12/10/23One-time only Shingles Vaccine due12/10/23One-time only Due In Future Medicare Annual Wellness Visit not due until01/22/24and every 1year Body Mass Index not due until07/26/24and every 366day Satisfied(in the past 1 year) Satisfied Adult Tdap/Td Vaccine on02/08/23.Satisfied by DENITA Fermin Paula Body Mass Index on07/26/23.Satisfied by DULCE MARIA Brownlee Donna Medicare Annual Wellness Visit on01/21/23.Satisfied by MD Howard, [facility] Electronic Signature on File Electronically Reviewed/Signed by: Elvia Perez Author Signature Dt/Tm:12/10/2023 11:58 AM Electronically Reviewed/Signed by: Aristides Roger MD Cosigner Signature Dt/Tm: 12/10/2023 12:44PM Division of Sports Medicine MR Patient Care team information Care Team Personnel Name: MD Howard, Melodie Position: Physician - Family Med Member Role: Primary Care Provider Address: [address] [facility] [address] [place] [address] Name: KATY aHrmon Stacey L Position: Nurse Pract - Cardiology Member Role: Lifetime Relationship Address: [address] [facility] [facility] [address] [place] [address] [place] Name: TERENCE Varela Lynn Position: Physician Condominium Manager Exempt - Vasc Surg Member Role: Lifetime Relationship Address: [address] [facility] [address] [place] [address] [place] Care Team Related Persons Name: INDIA RINCON Name: INDIA RINCON"
--- OUTSIDE RECORDS SUMMARY | 2024-02-15 15:53 | External Medical Summary | Continuity of Care Document ---
Author Name Unknown Organization [place] [id number] Address [address] [place] [address] [id number] Care Team Providers Care Childhood Teacher Name Role Phone Melodie Lawrence Primary Care Physician [phone] En[facility] [id number] Date(s): 01/17/24 - 01/17/24 [facility] [address] [place] [id number] [facility] [address] [place] [phone] Encounter Diagnosis Preop examination(Discharge Diagnosis) - 01/17/24 Osteoarthritis of right hip(Discharge Diagnosis) - 01/17/24 Discharge Disposition: Home or Self Care Attending Physician: TERENCE Cotter Dennis Referring Physician: MD Kana, Aristides King Allergies, Adverse Reactions, Alerts Substance Criticality Severity [...] bid, Disp# 60 tab, Refills: 11, Pharmacy: [facility] Start Date: 04/15/23 Status: Ordered atorvastatin 20 mg oral tablet Start: 07/26/23 9:50:00 AM EDT, 1 tab, PO, Daily, Disp# 90 tab, Refills: 3, Pharmacy: [facility] Start Date: 07/26/23 Stop Date: 07/20/24 Status: Ordered cephalexin 500 mg oral tablet Start: 01/17/24 2:04:00 PM EST, 1 tab, PO, tid, Disp# 15 tab, Post op infection prophylaxis, Pharmacy: [facility] Start Date: 01/17/24 Stop Date: 01/22/24 Status: Ordered cholecalciferol 1000 intl units oral tablet Start: 04/13/12 2:24:00 AM EST, 1 tab, PO, Daily Start Date: 04/13/12 Status: Ordered diclofenac sodium 75 mg oral delayed release tablet Start: 01/17/24 2:04:00 PM EST, 1 tab, PO, bid, Disp# 60 tab, Refills: 1, with food, PRN: as needed for pain, Pharmacy: [facility] Start Date: 01/17/24 Stop Date: 03/17/24 Status: Ordered famotidine 20 mg oral tablet Start: 08/19/23 4:16:00 PM EDT, 1 tab, PO, qhs, Disp# 90 tab, Refills: 1, Pharmacy: [facility] Start Date: 08/19/23 Status: Ordered Fish Oil [...] PO, Daily Start Date: 01/15/13 Status: Ordered oxyCODONE 5 mg oral tablet Start: 01/17/24 2:03:00 PM EST, 1 tab, PO, q4h, Disp# 28 tab, Refills: 0, post op pain control max 6/day Ongoing Tx, Pharmacy: [facility] Start Date: 01/17/24 Status: Ordered sildenafil 100 mg oral tablet [...] PO, Daily Start Date: 04/09/13 Status: Ordered Zofran 4 mg oral tablet Start: 01/17/24 2:05:00 PM EST, 1 tab, PO, q8h, Disp# 14 tab, post op nausea, Pharmacy: [facility] Start Date: 01/17/24 Status: Ordered Mental Status 01/17/24 Barriers to Learning one year None evide nt Mandatory Health Literacy Documentation Yes Health Literacy Communication Barriers N ever Primary Language Surinamese Problem List Condition Confirmation Course Effective Dates [...] Clinical Service Informant Preop examination Discharge Diagnosis 01/17/24 Osteoarthritis of right hip Discharge Diagnosis 01/17/24 Procedures Procedure Date Related Diagnosis Body Site [...] oldest [Reference Range]: 1 Height 174 cm (01/17/24 1:50 PM) Patient Weight 101.6 kg (01/17/24 1:50 PM) Body Mass Index 33.56 kg/m2 (01/17/24 1:50 PM) Temperature [36.5-37.9 DegC] 36.4 DegC *LOW* (01/17/24 1:50 PM) Respiratory Rate 20 br/min (01/17/24 1:50 PM) Blood Pressure 126/70mmHg (01/17/24 1:50 PM) Cuff Pulse Pressure 56 mmHg (01/17/24 1:50 PM) Social History Social History Type Response Smoking Status Never smoked cigaret leroy Sex Male Sex Representation Male (finding) Patient Care team information Care Team Personnel Name: MD Howard, Melodie Position: Physician - Family Med Member Role: Primary Care Provider Address: [address] [facility] [address] [place] [address] [place] Name: KATY Harmon Stacey L Position: Nurse Pract - Cardiology Member Role: Lifetime Relationship Address: [address] [facility] [place] [address] [place] [address] [place] Name: TERENCE Varela Lynn Position: Physician Fire Sprinkler Installer Exempt - Vasc Surg Member Role: Lifetime Relationship Address: [address] [place] [address] [address] [place] [address] [place] Care Team Related Persons Name: INDIA RINCON Name: INDIA RINCON
--- OUTSIDE RECORDS SUMMARY | 2024-02-15 15:53 | External Medical Summary | Continuity of Care Document ---
Author Name Unknown Organization [place] [address] [address] [place] [phone] Care Team Providers Care Data Assistant Name Role Phone Melodie Lawrence Primary Care Physician [phone] [id number] Date[facility]): [facility] - 02/03/24 [facility] [address] [facility] [address] [address] [phone] Encounter Diagnosis Encounter for other preprocedural examination(Final) - Unilateral primary osteoarthritis, right hip(Final) - Discharge Disposition: Home or Self Care Attending Physician: TERENCE Cotter Dennis Referring Physician: TERENCE Cotter Dennis Allergies, Adverse Reactions, Alerts Substance Criticality Severity [...] bid, Disp# 60 tab, Refills: 11, Pharmacy: [facility] Start Date: 04/15/23 Status: Ordered atorvastatin 20 mg oral tablet Start: 07/26/23 9:50:00 AM EDT, 1 tab, PO, Daily, Disp# 90 tab, Refills: 3, Pharmacy: [facility] Start Date: 07/26/23 Stop Date: 07/20/24 Status: Ordered cephalexin 500 mg oral tablet Start: 01/17/24 2:04:00 PM EST, 1 tab, PO, tid, Disp# 15 tab, Post op infection prophylaxis, Pharmacy: [facility] Start Date: 01/17/24 Stop Date: 01/22/24 Status: Ordered cholecalciferol 1000 intl units oral tablet Start: 04/13/12 2:24:00 AM EST, 1 tab, PO, Daily Start Date: 04/13/12 Status: Ordered diclofenac sodium 75 mg oral delayed release tablet Start: 01/17/24 2:04:00 PM EST, 1 tab, PO, bid, Disp# 60 tab, Refills: 1, with food, PRN: as needed for pain, Pharmacy: [facility] Start Date: 01/17/24 Stop Date: 03/17/24 Status: Ordered famotidine 20 mg oral tablet Start: 08/19/23 4:16:00 PM EDT, 1 tab, PO, qhs, Disp# 90 tab, Refills: 1, Pharmacy: [facility] Start Date: 08/19/23 Status: Ordered Fish [...] pain control max 6/day Ongoing Tx, Pharmacy: [facility] Start Date: 01/17/24 Status: Ordered sildenafil 100 [...] Disp# 14 tab, post op nausea, Pharmacy: [facility] Start Date: 01/17/24 Status: Ordered Problem List Condition Confirmation Course [...] 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0 fL (02/03/24 2:39 PM) Immature Gran% 0.7 % (02/03/24 2:39 PM) Neut% 69.4 % (02/03/24 2:39 PM) Lymph% 12.5 % (02/03/24 2:39 PM) [place]% 13.3 % (02/03/24 2:39 PM) Baso% 0.5 % (02/03/24 2:39 PM) Eos% 3.6 % (02/03/24 2:39 PM) Immat Gran, Abs [0-0.4 K/uL] 0.04 K/uL (02/03/24 2:39 PM) Neut, Abs [2.0-7.7 K/uL] 3.81 K/uL (02/03/24 2:39 PM) Lymph, Abs [1.0-3.4 K/uL] 0.69 K/uL *LOW* (02/03/24 2:39 PM) [place], Abs [0-1.0 K/uL] 0.73 K/uL (02/03/24 2:39 PM) Baso, Abs [0-0.1 K/uL] 0.03 K/uL (02/03/24 2:39 PM) Eos, Abs [0-0.5 K/uL] 0.20 K/uL (02/03/24 2:39 PM) Type of Diff: AUTO *Unknown* (02/03/24 2:39 PM) RDW [11.5-14.2 %] 15.2 % *HI* (02/03/24 2:39 PM) Squamous Epithelial Cells (u) NONE *Unknown* (02/03/24 2:39 PM) Mucous (u) FEW *Unknown* (02/03/24 2:39 PM) Anion Gap [5-14 mmol/L] 13 mmol/L (02/03/24 2:39 PM) Alb [3.5-5.2 g/dL] 4.2 g/dL (02/03/24 2:39 PM) Alk Phos [40-130 unit/L] 96 unit/L 1 (02/03/24 2:39 PM) ALT [0-41 unit/L] 12 unit/L (02/03/24 2:39 PM) AST [0-40 unit/L] 22 unit/L (02/03/24 2:39 PM) Bact (u) [NONE-NONE] NONE *Unknown* (02/03/24 2:39 PM) BUN [6-23 mg/dL] 21 mg/dL (02/03/24 2:39 PM) Ca [8.4-10.2 mg/dL] 9.0 mg/dL (02/03/24 2:39 PM) Cl- [98-107 mmol/L] 105 mmol/L (02/03/24 2:39 PM) HCO3 [22-29 mmol/L] 23 mmol/L (02/03/24 2:39 PM) Cret [0.70-1.30 mg/dL] 1.24 mg/dL (02/03/24 2:39 PM) Glu [74-109 mg/dL] 84 mg/dL 2 (02/03/24 2:39 PM) Hct [39-48 %] 34.5 % *LOW* (02/03/24 2:39 PM) Hgb [13.0-17.0 g/dL] 10.8 g/dL *LOW* (02/03/24 2:39 PM) INR [0.9-1.1] 1.1 3 (02/03/24 2:39 PM) K [3.5-5.1 mmol/L] 4.5 mmol/L (02/03/24 2:39 PM) MCH [28-33 pg] 28.7 pg (02/03/24 2:39 PM) MCHC [32-36 g/dL] 31.3 g/dL *LOW* (02/03/24 2:39 PM) MCV [81-96 fL] 91.8 fL (02/03/24 2:39 PM) Na [136-145 mmol/L] 141 mmol/L (02/03/24 2:39 PM) Plts [150-350 K/uL] 235 K/uL (02/03/24 2:39 PM) PT [12.0-14.2 seconds] 14.1 seconds (02/03/24 2:39 PM) RBC [4.40-5.60 M/uL] 3.76 M/uL *LOW* (02/03/24 2:39 PM) T Bili [0.0-1.2 mg/dL] 0.2 mg/dL (02/03/24 2:39 PM) Prot [6.4-8.3 g/dL] 6.8 g/dL (02/03/24 2:39 PM) RBC (u) [0-4 /HPF] 0-4 /HPF (02/03/24 2:39 PM) WBC (u) [0-4 /HPF] 0-4 /HPF (02/03/24 2:39 PM) WBC [4.0-10.4 K/uL] 5.50 K/uL (02/03/24 2:39 PM) 1Result Comment: Low levels of ALKP may indicate a deficiency in zinc, magnesium, or malnutritionbutcan also be an indicator of a rare genetic disease hypophosphatasia (HPP). 2Result Comment: ADA recommendation for FASTING Serum/Plasma Glucose: Normal: 70-100 mg/dL Prediabetes: 100-125 mg/dL Diabetes: 126 mg/dL or higher 3Result Comment: Suggested therapeutic range for low-intensity Coumadin therapy for venous thromboembolism is INR 2.0-3.0 (ex: atrial fibrillation, history of TIA/stroke). For high risk patients, the suggested therapeutic range is INR 2.5-3.5 (ex: mechanical prosthetic valves). Testing Performed By: Dept of Pathology [facility], [address] [place] [phone] Orders for Microbiology Reports Name Date Urine Culture (CULTURE, URINE) 02/03/24 Microbiology Reports TEST:Urine.Cx STATUS:Auth (Verified) BODY SITE: SOURCE:Urine COLLECTED DATE/TIME:02/03/24 2:39 PM Status FINAL 02/05/2024 Social History Social History Type Response Smoking Status Never smoked cigaret leroy Sex Male Sex Representation Male (finding) Patient Care team information Care Team Personnel Name: MD Howard, Melodie Position: Physician - Family Med Member Role: Primary Care Provider Address: [address] [facility] [address] [place] [address] [place] Name: KATY Harmon Stacey L Position: Nurse Pract - Cardiology Member Role: Lifetime Relationship Address: [address] [place] [address] [place] Name: TERENCE Varela Lynn Position: Physician Partner Exempt - Vasc Surg Member Role: Lifetime Relationship Address: [address] [place] [id number] [place] Care Team Related Persons Name: INDIA RINCON Name: INDIA RINCON
--- OUTSIDE RECORDS SUMMARY | 2024-02-15 15:53 | External Medical Summary | Continuity of Care Document ---
Author Name Unknown Organization [place] [address] [address] [place] [phone] Care Team Providers Care Pork Cutlet Maker Name Role Phone Melodie Lawrence Primary Care Physician [phone] Encounter [facility] [id number] Date(s): 02/03/24 - 02/03/24 [facility] [address] [place] [id number] [place] [phone] Encounter Diagnosis Body mass index [BMI] 33.0-33.9, adult(Discharge Diagnosis) - 02/03/24 Preop testing(Discharge Diagnosis) - 02/03/24 Atrial flutter(Discharge Diagnosis) - 02/03/24 URI (upper respiratory infection)(Discharge Diagnosis) - 02/03/24 GERD (gastroesophageal reflux disease)(Discharge Diagnosis) - 02/03/24 Hyperlipidemia(Discharge Diagnosis) - 02/03/24 Encounter for other preprocedural examination(Final) - Discharge Disposition: Home or Self Care Attending Physician: MD Lawrence Dongsheng Allergies, Adverse Reactions, Alerts Substance Criticality Severity Reaction Reaction Severity Status Bee sting Anaphylaxis Active Assessment and Plan Extracted from: Title:Office Visit Note Author:MD Lawrence Dongsh eng Date:02/03/24 1.Preop testing Patient's METS score is at least 4. reviewed cardiology note.For an intermediate procedure, patient is at acceptable risk. labs pending. nasal Cxwas ordered by ortho - reordered and sample is taken today. He currently has URI so it would be a good idea to reschedule surgery to 30 days after his URI resolves. He has a phone appt withanesthesia tomorrow and advised to double check on this. He has got instruction on med management from cardiology. 2.URI (upper respiratory infection) STATUS: Chronic stable: Chronic uncontrolled: Acute uncomplicated: x Acute illness with systemic symptoms: Undiagnosed new problems with uncertain prognosis: Chronic illnesses with exacerbation, progression, or side effects of treatment: 1 acute complicated injury: DATA: Review of prior external note(s) from each unique source: Review of the result(s) of each unique test: Ordering of each unique test: Assessment requiring independent historian(s): GOAL: Resolution PLAN: declined testing. declined flu shot. 3.Atrial flutter STATUS: Chronicon pacemaker, stable DATA: Reviewed labs: cbc,cmp GOAL: Maintain stability PLAN: f/u cardiology . on med 4.GERD (gastroesophageal reflux disease) STATUS: Chronic, stable DATA: Reviewed labs GOAL: resolution PLAN:[id number] prn. diet modification 5.Hyperlipidemia STATUS: Chronic stable DATA: Reviewed labs: flp GOAL: prevent ascvd PLAN: holding statin did not help with hip pain. continue statin. Diet and exercise. ordered flp call prn.f/u 6 mos Time spent: Pre-visit planning/chart review: 6 minutes [id number] visit: 22 minutes Post-visit documentation: minutes Care coordination: 2 minutes Time spent on disease management/counseling in addition to CPE/AWV/WCC: minutes Total visit time: 30 minutes Immunizations Given and Recorded Vaccine Date [...] bid, Disp# 60 tab, Refills: 11, Pharmacy: [facility] Start Date: 04/15/23 Status: Ordered atorvastatin 20 mg oral tablet Start: 07/26/23 9:50:00 AM EDT, 1 tab, PO, Daily, Disp# 90 tab, Refills: 3, Pharmacy: [facility] Start Date: 07/26/23 Stop Date: 07/20/24 Status: Ordered cephalexin 500 mg oral tablet Start: 01/17/24 2:04:00 PM EST, 1 tab, PO, tid, Disp# 15 tab, Post op infection prophylaxis, Pharmacy: [facility] Start Date: 01/17/24 Stop Date: 01/22/24 Status: Ordered cholecalciferol 1000 intl units oral tablet Start: 04/13/12 2:24:00 AM EST, 1 tab, PO, Daily Start Date: 04/13/12 Status: Ordered diclofenac sodium 75 mg oral delayed release tablet Start: 01/17/24 2:04:00 PM EST, 1 tab, PO, bid, Disp# 60 tab, Refills: 1, with food, PRN: as needed for pain, Pharmacy: [facility] Start Date: 01/17/24 Stop Date: 03/17/24 Status: Ordered famotidine 20 mg oral tablet Start: 08/19/23 4:16:00 PM EDT, 1 tab, PO, qhs, Disp# 90 tab, Refills: 1, Pharmacy: [facility] Start Date: 08/19/23 Status: Ordered Fish Oil 1000 mg oral capsule Start: 04/13/12 2:25:00 AM EST, 1 cap, PO, Daily, [place] Start Date: 04/13/12 Status: Ordered metoprolol succinate 25 mg oral tablet, extended release Start: 04/15/23 12:19:00 PM EST, 0.5 tab, PO, Daily, Disp# 30 tab, Refills: 11, Pharmacy: [facility] Start Date: 04/15/23 Status: Ordered multivitamin Start: 01/15/13 9:42:00 AM EST, 1 tab, PO, Daily Start Date: 01/15/13 Status: Ordered oxyCODONE 5 mg oral tablet Start: 01/17/24 2:03:00 PM EST, 1 tab, PO, q4h, Disp# 28 tab, Refills: 0, post op pain control max 6/day Ongoing Tx, Pharmacy: [facility] Start Date: 01/17/24 Status: Ordered sildenafil 100 mg oral tablet Start: 01/21/23 3:32:00 PM EST, See Instructions, Disp# 12 tab, Refills: 3, TAKE 1 TABLET BY MOUTH DAILY NEEDED ONE HOUR PRIOR TO SEXUAL ACTIVITY, Pharmacy: [facility] Start Date: 01/21/23 Status: Ordered Tylenol [...] Disp# 14 tab, post op nausea, Pharmacy: [facility] Start Date: 01/17/24 Status: Ordered Mental Status 02/03/24 Barriers to Learning one year None evide nt Mandatory Health Literacy Documentation Yes Health Literacy Communication Barriers N ever Primary Language Ukrainian Problem List Condition Confirmation Course Effective Dates [...] Clinical Service Informant Atrial flutter Discharge Diagnosis 02/03/24 Non-Specified URI (upper respiratory infection) Discharge Diagnosis 02/03/24 Non-Specified Body mass index [BMI] 33.0-33.9, adult Discharge Diagnosis 02/03/24 Non-Specified GERD (gastroesophageal reflux disease) Discharge Diagnosis 02/03/24 Non-Specified Preop testing Discharge Diagnosis 02/03/24 Non-Specified Hyperlipidemia Discharge Diagnosis 02/03/24 Non-Specified Procedures Procedure Date Related Diagnosis Body [...] of the fragments show melanosis coli Results Orders for Microbiology Reports Name Date Nasal Culture (THROAT/NASAL CULTURE) Microbiology Reports TEST:Thr/Nasal.Cx STATUS:Unauthenticated BODY SITE: SOURCE:Nasal COLLECTED DATE/TIME:02/03/24 4:00 PM Culture Culture in Progress Vital Signs Most recent to oldest [Reference Range]: 1 Height 174 cm (02/03/24 3:33 PM) Patient Weight 101.9 kg (02/03/24 3:33 PM) Body Mass Index 33.66 kg/m2 (02/03/24 3:33 PM) Heart Rate 58 bpm (02/03/24 3:33 PM) Respiratory Rate 12 br/min (02/03/24 3:33 PM) Blood Pressure 122/78mmHg (02/03/24 3:33 PM) Cuff Pulse Pressure 44 mmHg (02/03/24 3:33 PM) Social History Social History Type Response Smoking Status Never smoked cigaret leroy Sex Male Sex Representation Male (finding) FCM Outpt Note * MD Howard, Melodie: PERFORM Event Display: FCM Outpt Note Authored Date: [id number] Chief Complaint Preop total hip replacement Feb 12 History of Present Illness Pre-op: Surgery: R hip replacement Surgeon: MYRNA Date: 02/12 Anesthesia: general Fax: Last surgery: 07/30 L hip replacement Complications with anesthesia: none High-risk surgery (intraperitoneal, intrathoracic, or vascular): no H/o heart disease/NM/CHF: no h/o CVA/TIA: no h/o DM on insulin: no h/o kidney disease with Cr >2: no h/o RA: no Activity: can climb a hill or at least 2 flights of stairs without chest pain or unusual SOB or difficulty Snore: no URI illness in the past month: YES Alcohol use: rare Tobacco use: no Drug use: no cough: X 2 DYAS.mild. lost voice. is sick too. HLD:on statin.no muscle aches. GERD: on med. doing well. Review of Systems No fever/chills. No headache. No other respiratory symptoms. No chest pain/shortness of breath. No nausea/vomiting. No abdominal pain. No change with bowels. No urinary symptoms. No rash. No bleeding. No anxiety/depression. Other systems reviewed and are neg. Physical Exam Vitals & Measurements HR:58(Monitored) RR:12 BP:122/78 SpO2:98% HT:174cm WT:101.900kg(Dosing) WT:101.9kg BMI:33.66 PHQ2 Data(Data Documented on:02/03/2024 15:33) Emotional health assessment NEGATIVE General: No acute distress. Nontoxic. Head:Normocephalic, Atraumatic. Eyes:Pupils are equal, round Throat:No pharyngeal erythema, no abnormal masses or [...] Patient's METS score is at least 4. reviewed cardiology note.For an intermediate procedure, patient is at acceptable risk. labs pending. nasal Cxwas ordered by ortho - reordered and sample istaken today. He currently has URI so it would be a good idea to reschedule surgery to 30 days afterhis URI resolves. He has a phone appt withanesthesia tomorrow and advised to double check on this. He has got instruction on med management from cardiology. 2.URI (upper respiratory infection) STATUS: Chronic stable: Chronic uncontrolled: Acute uncomplicated: x Acute illness with systemic symptoms: Undiagnosed new problems with uncertain prognosis: Chronic illnesses with exacerbation, progression, or side effects of treatment: 1 acute complicated injury: DATA: Review of prior external note(s) from each unique source: Review of the result(s) of each unique test: Ordering of each unique test: Assessment requiring independent historian(s): GOAL: Resolution PLAN: declined testing. declined flu shot. 3.Atrial flutter STATUS: Chronicon pacemaker, stable DATA: Reviewed labs: cbc,cmp GOAL: Maintain stability PLAN: f/u cardiology. on med 4.GERD (gastroesophageal reflux disease) STATUS: Chronic, stable DATA: Reviewed labs GOAL: resolution PLAN:[id number] prn. diet modification 5.Hyperlipidemia STATUS: Chronic stable DATA: Reviewed labs: flp GOAL: prevent ascvd PLAN: holding statin did not help with hip pain. continuestatin. Diet and exercise. ordered flp call prn.f/u 6 mos Time spent: Pre-visit planning/chart review: 6 minutes [id number] visit: 22 minutes Post-visit documentation: minutes Care coordination: 2 minutes Time spent on disease management/counseling in addition to CPE/AWV/WCC: minutes Total visit time: 30 minutes Problem List/Past Medical History Ongoing Anemia [...] mg= 1 tab, PO, Daily, 3 refills cephalexin(cephalexin 500 mg oral tablet), 500 mg= 1 tab, PO, tid cholecalciferol(cholecalciferol 1000 intl units oral tablet), 1000 Int_Unit= 1 tab, PO, Daily diclofenac(diclofenac sodium 75 mg oral delayed release tablet), 75 mg= 1 tab, PO, bid, PRN, 1 refills famotidine(famotidine 20 mg oral tablet), 1 tab, PO, qhs metoprolol(metoprolol succinate 25 mg oral tablet, extended release), 12.5 mg= 0.5 tab, PO, Daily, 11 refills multivitamin, 1 tab, PO, Daily multivitamin(Vitamin B Complex), 1 tab, PO, Daily omega-3 polyunsaturated fatty acids(Fish Oil 1000 mg oral capsule), 1000 mg= 1 cap, PO, Daily ondansetron(Zofran 4 mg oral tablet), 4 mg= 1 tab, PO, q8h oxyCODONE(oxyCODONE 5 mg oral tablet), 5 mg= 1 tab, PO, q4h sildenafil(sildenafil 100 mg oral tablet), See Instructions, [...] OverDue Adult Influenza Vaccine due09/08/23and every 1year Medicare Annual Wellness Visit due01/22/24and every 1year Due Adult COVID-19 Vaccination due02/03/24Unknown Frequency Adult Social Determinants of Health Screening due02/03/24Unknown Frequency Pneumococcal Vaccine Older Adults due02/03/24One-time only Shingles Vaccine due02/03/24One-time only Satisfied(in the past 1 year) Satisfied Adult Tdap/Td Vaccine on02/08/23.Satisfied by DENITA Fermin Paula Body Mass Index on02/03/24.Satisfied by DULCE MARIA Perrin Paul Electronic Signature on File Electronically Reviewed/Signed by: Melodie Lawrence MD Author Signature Dt/Tm:02/03/2024 04:19 PM Department of Family Medicine DJ Patient Care team information Care Team Personnel Name: MD Lawrence Dongsheng Position: Physician - Family Med Member Role: Primary Care Provider Address: [address] [facility] [address] [place] [address] [place] Name: KATY Harmon Stacey L Position: Nurse Pract - Cardiology Member Role: Lifetime Relationship Address: [address] [facility] [place] [address] [place] Name: TERENCE Varela Lynn Position: Physician Power Shear Operator Exempt - Vasc Surg Member Role: Lifetime Relationship Address: [address] [place] [address] [address] [place] [address] [place] Care Team Related Persons Name: INDIA RINCON Name: INDIA RINCON"
--- OUTSIDE RECORDS SUMMARY | 2024-02-15 15:53 | External Medical Summary | Continuity of Care Document ---
Author Name Unknown Organization [place] [id number] Address [address] [place] [phone] Care Team Providers Care Supervisor Soldering Name Role Phone Melodie Lawrence Primary Care Physician [phone] Encounter [facility] [id number] Date(s): 09/16/23 - 09/16/23 [facility] [employer] [place] [id number] [facility] [address] [place] [id number] Encounter Diagnosis S/P total left hip arthroplasty(Discharge Diagnosis) - 09/16/23 Discharge Disposition: Home or Self Care Attending Physician: TERENCE Cotter Dennis Allergies, Adverse Reactions, Alerts Substance Criticality Severity Reaction Reaction Severity Status Bee sting Anaphylaxis Active Assessment and Plan Extracted from: Title:Clinical Document Author:TERENCE Cotter Denn is Date:09/17/23 OUTPATIENT NOTE Name: SERGEY LIBERTADTAVO Dumont Patient Number:1 [id number] : 1955 Date of Service: 09/16/2023 HPI: This 67-year-old male presents to clinic today for his 6-week postoperative follow-up after undergoing a left total hip arthroplasty. Patient states he is doing great. Patient states that he does have a few more sessions of physical therapy scheduled but has been doing most of the exercises on his own at home and plans on being discharged very soon. He states that he still occasionally will use diclofenac sodium for any pain or inflammation he experiences, but does not use it very often Physical examination: Left hip; surgical incision site is closed completely. There is no palpable fluctuance or discharge. Patient is able to easily perform active straight leg raise test. He is able to actively dorsi and plantarflex his foot. His quad strength is 5 out of 5. He has no pain with logroll testing. No discomfort with Stinchfield testing. He has no pain with passive hip flexion near 90 degrees and experiences no discomfort with light passive internal or external hip rotation. He is neurovascular intact left lower extremity. Impression: 6 weeks status post left total hip arthroplasty Plan: Patient will transition to an in-home regimen for rehab. If he does develop any discomfort or inflammation he can use of diclofenac sodium as needed. I reviewed his total hip precautions with him and he understands them completely. Patient will be scheduled for his next postoperative follow-up visit with Dr. Roger in 3 months. Patient verbalized understanding of all information provided during today's visit. He thanked us for the care that he has received. If he has any questions or concerns that should arise prior to that follow-up, he will contact the clinic. This chart was completed utilizing MeshApp voice recognition software. Grammatical errors, random word insertions, pronoun errors, and in complete sentences are an occasional consequence of the system. Any questions or concerns about the content, text, or information contained within the body of this dictation should be addressed directly to the physician for clarification. Immunizations Given and Recorded Vaccine Date Status [...] bid, Disp# 60 tab, Refills: 11, Pharmacy: [facility] Start Date: 04/15/23 Status: Ordered atorvastatin 20 mg oral tablet Start: 07/26/23 9:50:00 AM EDT, 1 tab, PO, Daily, Disp# 90 tab, Refills: 3, Pharmacy: [facility] Start Date: 07/26/23 Stop Date: 07/20/24 Status: Ordered cholecalciferol 1000 intl units oral tablet Start: 04/13/12 2:24:00 AM EST, 1 tab, PO, Daily Start Date: 04/13/12 Status: Ordered famotidine 20 mg oral tablet Start: 08/19/23 4:16:00 PM EDT, 1 tab, PO, qhs, Disp# 90 tab, Refills: 1, Pharmacy: [facility] Start Date: 08/19/23 Status: Ordered Fish Oil 1000 mg oral capsule Start: 04/13/12 2:25:00 AM EST, 1 cap, PO, Daily, Chucky Red Start Date: 04/13/12 Status: Ordered metoprolol succinate 25 mg oral tablet, extended release Start: 04/15/23 12:19:00 PM EST, 0.5 tab, PO, Daily, Disp# 30 tab, Refills: 11, Pharmacy: [facility] Start Date: 04/15/23 Status: Ordered multivitamin Start: 01/15/13 9:42:00 AM EST, 1 tab, PO, Daily Start Date: 01/15/13 Status: Ordered sildenafil 100 mg oral tablet Start: 01/21/23 3:32:00 PM EST, See Instructions, Disp# 12 tab, Refills: 3, TAKE 1 TABLET BY MOUTH DAILY NEEDED ONE HOUR PRIOR TO SEXUAL ACTIVITY, Pharmacy: [facility] Start Date: 01/21/23 Status: Ordered Tylenol 325 mg oral tablet Start: 02/20/21 12:46:00 PM EST, 2 tab, PO, q4h, PRN: fever/mild pain (1-3) Start Date: 02/20/21 Status: Ordered Vitamin B Complex Start: 04/09/13 12:41:00 PM EST, 1 tab, PO, Daily Start Date: 04/09/13 Status: Ordered Mental Status 09/16/23 Barriers to Learning one year None evide nt Mandatory Health Literacy Documentation Yes Health Literacy Communication Barriers N ever Primary Language Austrian Problem List Condition Confirmation Course Effective Dates [...] Effective Dates Health Status Clinical Service Informant S/P total left hip arthroplasty Discharge Diagnosis 09/16/23 Procedures Procedure Date Related Diagnosis Body Site [...] Status Never smoked cigaret leroy Sex Male Outpatient Note * TERENCE Cotter Dennis: PERFORM Event Display: .Outpt Note Authored Date: [id number] OUTPATIENT NOTE Name: MACO RINCON Patient Number:1 [id number] : 1955 Date of Service: 09/16/2023 HPI: This 67-year-old male presents to clinic today for his 6-week postoperative follow-up after undergoing a left total hip arthroplasty. Patient states he is doing great. Patient states that he does have a few more sessions of physical therapy scheduled but has been doing most of the exercises onhis own at home and plans on being discharged very soon. He states that he still occasionally will u se diclofenac sodium for any pain or inflammation he experiences, but does not use it very often Physical examination: Left hip; surgical incision site is closed completely. There is no palpable fluctuance or discharge. Patient is able to easily perform active straight leg raise test. He is ableto actively dorsi and plantarflex his foot. His quad strength is 5 out of 5. He has no pain with logroll testing. No discomfort with Stinchfield testing. He has no pain with passive hip flexion near 90 degrees and experiences no discomfort with light passive internal or external hip rotation. He isneurovascular intact left lower extremity. Impression: 6 weeks status post left total hip arthroplasty Plan: Patient will transition to an in-home regimen for rehab. If he does develop any discomfort orinflammation he can use of diclofenac sodium as needed. I reviewed his total hip precautions with him and he understands them completely. Patient will be scheduled for his next postoperative follow-up visit with Dr. Roger in 3 months. Patient verbalized understanding of all information provided during today's visit. He thanked us for the care that he has received. If he has any questions or concerns that should arise prior to that follow-up, he will contact the clinic. This chart was completed utilizing MeshApp voice recognition software. Grammatical errors,random word insertions, pronoun errors, and in complete sentences are an occasional consequence of the system. Any questions or concerns about the content, text, or information contained within the body of this dictation should be addressed directly to the physician for clarification. Electronic Signature on File CC: Aristides Roger MD [address] [facility] [address] [place] [address] Electronically Reviewed/Signed by: Emir Cotter PA-C Author Signature Dt/Tm:09/17/2023 09:30 AM Division of Sports Medicine Electronically Reviewed/Signed by: Aristides Negro MD Cosigner Signature Dt/Tm: 09/17/2023 04:50 PM Division of Sports Medicine [place] Patient Care team information Care Team Personnel Name: MD Dickens Tiane Position: Resident - Pathologist Member Role: Lifetime Relationship Address: Address: [address] [place] [id number] [place] Name: MD Lawrence Dongsheng Position: Physician - Family Med Member Role: Primary Care Provider Address: Address: [address] [facility] [address] [place] [address] Name: KATY Harmon Stacey L Position: Nurse Pract - Cardiology Member Role: Lifetime Relationship Address: Address: [address] [facility] [place] [address] Name: TERENCE Varela Lynn Position: Physician Industrial Controls Technician Exempt - Vasc Surg Member Role: Lifetime Relationship Address: Address: [address] [facility] [address] [place] [address] Care Team Related Persons Name: INDIA RINCON Address: home [address] [facility] [phone] Name: INDIA RINCON Address: [place] Address: home [address] [place], [place] [phone]
--- OUTSIDE RECORDS SUMMARY | 2024-02-15 15:53 | External Medical Summary | Continuity of Care Document ---
Author Name Unknown Organization [facility] [address] Address [address] [place] [phone] Care Team Providers Care Sanitation Engineer Name Role Phone Melodie Lawrence Primary Care Physician [phone] [id number] Date(s): 01/21/24 - 01/21/24 [facility] [address] [place] [phone] Encounter Diagnosis Pre-op exam(Discharge Diagnosis) - 01/21/24 Sinus node dysfunction(Discharge Diagnosis) - 01/21/24 Pacemaker(Discharge Diagnosis) - 01/21/24 Hyperlipidemia(Discharge Diagnosis) - 01/21/24 Atrial flutter(Discharge Diagnosis) - 01/21/24 Discharge Disposition: Home or Self Care Attending Physician: DO Raines Jason D Referring Physician: DO Raines Jason D Allergies, Adverse Reactions, Alerts Substance Criticality Severity Reaction Reaction Severity Status Bee sting Anaphylaxis Active Assessment and Plan Extracted from: Title:Cardiology Office Visit Note Author:DO Raines Jason D Date:01/21/24 1.Pre-op exam 2.Atrial flutter 3.Hyperlipidemia 4.Pacemaker 5.Sinus node dysfunction Immunizations Given and Recorded Vaccine Date Status [...] bid, Disp# 60 tab, Refills: 11, Pharmacy: [facility] Start Date: 04/15/23 Status: Ordered atorvastatin 20 mg oral tablet Start: 07/26/23 9:50:00 AM EDT, 1 tab, PO, Daily, Disp# 90 tab, Refills: 3, Pharmacy: [facility] Start Date: 07/26/23 Stop Date: 07/20/24 Status: Ordered cephalexin 500 mg oral tablet Start: 01/17/24 2:04:00 PM EST, 1 tab, PO, tid, Disp# 15 tab, Post op infection prophylaxis, Pharmacy: [facility] Start Date: 01/17/24 Stop Date: 01/22/24 Status: Ordered cholecalciferol 1000 intl units oral tablet Start: 04/13/12 2:24:00 AM EST, 1 tab, PO, Daily Start Date: 04/13/12 Status: Ordered diclofenac sodium 75 mg oral delayed release tablet Start: 01/17/24 2:04:00 PM EST, 1 tab, PO, bid, Disp# 60 tab, Refills: 1, with food, PRN: as needed for pain, Pharmacy: [facility] Start Date: 01/17/24 Stop Date: 03/17/24 Status: Ordered famotidine 20 mg oral tablet Start: 08/19/23 4:16:00 PM EDT, 1 tab, PO, qhs, Disp# 90 tab, Refills: 1, Pharmacy: [facility] Start Date: 08/19/23 Status: Ordered Fish Oil 1000 mg oral capsule Start: 04/13/12 2:25:00 AM EST, 1 cap, PO, Daily, Chucky Red Start Date: 04/13/12 Status: Ordered metoprolol succinate 25 mg oral tablet, extended release Start: 04/15/23 12:19:00 PM EST, 0.5 tab, PO, Daily, Disp# 30 tab, Refills: 11, Pharmacy: [facility] Start Date: 04/15/23 Status: Ordered multivitamin Start: 01/15/13 9:42:00 AM EST, 1 tab, PO, Daily Start Date: 01/15/13 Status: Ordered oxyCODONE 5 mg oral tablet Start: 01/17/24 2:03:00 PM EST, 1 tab, PO, q4h, Disp# 28 tab, Refills: 0, post op pain control max 6/day Ongoing Tx, Pharmacy: [facility] Start Date: 01/17/24 Status: Ordered sildenafil 100 mg oral tablet Start: 01/21/23 3:32:00 PM EST, See Instructions, Disp# 12 tab, Refills: 3, TAKE 1 TABLET BY MOUTH DAILY NEEDED ONE HOUR PRIOR TO SEXUAL ACTIVITY, Pharmacy: [facility] Start Date: 01/21/23 Status: Ordered Tylenol [...] tab, post op nausea, Pharmacy: [facility] Start Date: 01/17/24 Status: Ordered Mental Status 01/21/24 Barriers to Learning one year None evide [...] Effective Dates Health Status Clinical Service Informant Pre-op exam Discharge Diagnosis 01/21/24 Non-Specified Sinus node dysfunction Discharge Diagnosis 01/21/24 Pacemaker Discharge Diagnosis 01/21/24 Hyperlipidemia Discharge Diagnosis 01/21/24 Atrial flutter Discharge Diagnosis 01/21/24 Procedures Procedure Date Related Diagnosis Body Site [...] to oldest [Reference Range]: 1 Patient Weight 100 kg (01/21/24 9:01 AM) Heart Rate 66 bpm (01/21/24 9:01 AM) Blood Pressure 138/82mmHg (01/21/24 9:01 AM) Cuff Pulse Pressure 56 mmHg (01/21/24 9:01 AM) BP Location # 1 Right Arm, Other: (01/21/24 9:01 AM) Social History Social History Type Response Smoking Status Never smoked cigaret leroy Sex Male Sex Representation Male (finding) EKG study * Contributor_system, MUSE01: VERIFY, PERFORM Event Display: EKG Authored Date: Please click on link to see image. Cardiology Outpatient Note * DO Raines Jason D: PERFORM Event Display: Cardiology Outpt Note Authored Date: [id number] Primary Care Provider MD Howard, Marcnarciso Referring Provider DO Raines Jason D Chief Complaint off atorv. exercises 1.5 hours daily no cp dizziness l/h. every now and then it takes "pacer a few min to catch up". no bleeding issues. History of Present Illness He denies any chest pain or chest pressure. 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 No orthostatic sx's. No falls. No Bleeding or Bruising. PLans to have hip replacement in February. He wears compression stockings daily. He denies any. Or syncopal episodes. He is tolerating his current medical regimen. Review of Systems PMHX: 1. Aflutter s/p ablation 12/05/2020 2. Dyslipidemia 3. Symptomatic Bigeminy, junctional rhythm with subsequent pacemaker placement BIOTRONIK 02/2021 4. Varicose Veins 5.ECHO 2020: Normal LV size and systolic function with no regional wall motion abnormalities. Ejection fraction is 60%. No left ventricular hypertrophy. Dilated right ventricle. Visually RVsystolic function/ RV Free wall appears reduced; however, TAPSE is 2.0 cm (normal).PA Systolic Pressure 30mm/hg + RA Pressure 6. NML Stress ECHO 2020 Physical Exam Vitals & Measurements HR:66(Monitored) BP:138/82 SpO2:97% WT:100kg WT:100.000kg(Dosing) Patient is awake alert and oriented x3and in no acute distress HEENT:2+ carotid upstrokes, no evidence of carotid bruits LUNGS:Clear to auscultation bilaterally no rales rhonchi or wheezing HEART:Regular rate and rhythmno appreciable murmurs rubs or gallops EXTREMITIES:No evidence of clubbing cyanosis or edema PSYCHIATRIC:Patient's affect appeared appropriate EKG Atrial Paced LVH with QRS widening and PRWP Assessment/Plan 1.Pre-op exam 2.Atrial flutter 3.Hyperlipidemia 4.Pacemaker 5.Sinus node dysfunction Attestation He can proceed with hip replacement surgery At intermediate risk of cardiac complications in the range of 2 to 3%. This includes heart attack dying from cardiac causes, arrhythmias and congestive heart failure. His anticoagulation can be stopped 3 days before surgery and reinitiated after surgery when the risk of bleeding is acceptable from a surgical standpoint. His pacemaker is working normally. He is atrially paced 70 to 80% of the time and minimally ventricularly paced. He does note if he goes to do activity immediately from a sitting or cold positionhe feels like there is a slight delay before his pacemaker kicks in. It is not overly impacting his quality of life and he was not interested in having device clinic readjust the ramp and sensitivity of his device. His device is otherwise functioning normally. He is had some asymptomatic episodes of atrial fibrillation. He remains on beta-blockers and anticoagulation. His functional capacity is greater than 4 METS. I congratulated him on all of his activity. He should have a yearly CBC and BMP given his Eliquis. Will see eGri in 6 months. I will see him in a year. Will continue to follow in device clinic. Problem List/Past Medical History Ongoing Anemia Atrial [...] Family Member(s) Electronic Signature on File CC: Melodie Lawrence MD [address] [place] [address] CC: Aristides Roger MD [address] [place] [address] Electronically Reviewed/Signed by: Ricardo Raines DO Author Signature Dt/Tm:01/21/2024 09:34 AM Mechanic Sound Techniciancutter operator tile [facility] [place] [address] JDF Patient Care team information Care Team Personnel Name: MD Lawrence Dongsheng Position: Physician - Family Med Member Role: Primary Care Provider Address: [address] [place] [address] [place] Name: KATY Harmon Stacey L Position: Nurse Pract - Cardiology Member Role: Lifetime Relationship Address: [address] [place] [address] [place] Name: TERENCE Varela Lynn Position: Physician Reclamation Supervisor Exempt - Vasc Surg Member Role: Lifetime Relationship Address: [address] [place] [address] [place] Care Team Related Persons Name: INDIA RINCON Name: INDIA RINCON
== END 2024-02-14 11:32 | disposition home health service (06) ==
LOC: 3E 08:25 → ASU 08:25